=== PATIENT | male | born 1990 | race Caucasian/White ===

== ENCOUNTER 2017-05-01 13:38 | Emergency (ER) | payer BC ==
[2017-05-01] MEDS ORDERED: NORMAL SALINE 1000 ML 1,000 ML IV ONE (14:20)
--- NOTE | 2017-05-01 14:22 | ER Document Report ---
ED Medical Screen (RME) - General Chief Complaint: Low Back Pain Stated Complaint: BACK/STOMACH PAIN Time Seen by Provider: 05/01/17 14:19 Notes: Patient states he has a history of sarcoidosis, PE, and DVT. He states he has a [place] filter in place. He states he just finished blood thinners approximately 3 months ago. Patient states that he has noticed some left lower quadrant pain and central back pain for the last several days. He states he had only one day last week and went away but is now returned for the last several days. No nausea vomiting or diarrhea. States she is eating normally. TRAVEL OUTSIDE OF THE [place] IN LAST 30 DAYS: No - Related Data Allergies/Adverse Reactions: morphine Allergy (Verified 05/01/17 13:41) Past Medical History - Social History Chew tobacco use (# tins/day): No Frequency of alcohol use: Occasional Drug Abuse: None Renal/ Medical History: Denies: Hx Peritoneal Dialysis - Immunizations Hx Diphtheria, Pertussis, Tetanus Vaccination: No - Unknown last Tetanus. Physical Exam - Vital signs Vitals: Temp Pulse Resp BP Pulse Ox 99.5 F 101 H 16 146/103 H 99 05/01/17 13:46 05/01/17 13:46 05/01/17 13:46 05/01/17 13:46 05/01/17 13:46 Course - Vital Signs Vital signs: Temp Pulse Resp BP Pulse Ox 99.5 F 101 H 16 146/103 H 99 05/01/17 13:46 05/01/17 13:46 05/01/17 13:46 05/01/17 13:46 05/01/17 13:46
[2017-05-01 15:06] LABS: ABSOLUTE LYMPHOCYTES (AUTO) 0.5 10^3/uL (0.5-4.7); ABSOLUTE MONOCYTES (AUTO) 0.2 10^3/uL (0.1-1.4); ABSOLUTE NEUT (AUTO) 7.5 10^3/uL (1.7-8.2); BASOPHILS % (AUTO) 0.5 % (0-2); EOSINOPHILS % (AUTO) 0.5 % (0-6); HEMATOCRIT 48.2 % (37.9-51.0); HEMOGLOBIN 16.7 g/dL (13.5-17.0); HGB HCT DIFFERENCE 1.9; LYMPHOCYTES % (AUTO) 5.5 % (13-45); MEAN CORPUSCULAR HEMOGLOBIN 29.8 pg (27.0-33.4); MEAN CORPUSCULAR HGB CONC 34.6 g/dL (32.0-36.0); MEAN CORPUSCULAR VOLUME 86 fl (80-97); MONOCYTES % (AUTO) 2.4 % (3-13); RED BLOOD COUNT 5.59 10^6/uL (4.35-5.55); RED CELL DISTRIBUTION WIDTH 15.5 % (11.5-14.0); SEGMENTED NEUTROPHILS % (AUTO) 91.1 % (42-78); WHITE BLOOD COUNT 8.3 10^3/uL (4.0-10.5)
[2017-05-01 15:25] LABS: ALANINE AMINOTRANSFERASE 69 U/L (21-72); ALBUMIN 4.5 g/dL (3.5-5.0); ALKALINE PHOSPHATASE 61 U/L (38-126); ANION GAP 12 (5-19); ASPARTATE AMINO TRANSFERASE 29 U/L (17-59); BILIRUBIN,DIRECT 0.5 mg/dL (0.0-0.4); BILIRUBIN,TOTAL 0.7 mg/dL (0.2-1.3); BLOOD UREA NITROGEN 19 mg/dL (7-20); CALCIUM 9.4 mg/dL (8.4-10.2); CARBON DIOXIDE 22 mmol/L (22-30); CHLORIDE 107 mmol/L (98-107); GLUCOSE 92 mg/dL (75-110); POTASSIUM 4.8 mmol/L (3.6-5.0); SODIUM 140.6 mmol/L (137-145); TOTAL PROTEIN 7.2 g/dL (6.3-8.2)
--- NOTE | 2017-05-01 16:06 | ER Document Report ---
ED General - General Chief Complaint: Low Back Pain Stated Complaint: BACK/STOMACH PAIN Time Seen by Provider: 05/01/17 14:19 TRAVEL OUTSIDE OF THE [place] IN LAST 30 DAYS: No - HPI Notes: 26-year-old male with history of sarcoidosis, DVT and pulmonary emboli status post IVC filter placement with discontinuation of his Eliquis 3 months ago presents with abdominal pain back pain and numbness in his lower legs. Symptoms started about a week and a half ago where he noticed he was having left lower abdominal pain and lower central back discomfort that progressed and lasted for 3 or 4 days. With the progression he noticed that he would get diffuse numbness starting in his hips and as he would walk with progressively become more distal to involve his entire legs and feet. He has had no incontinence or other urinary or stool symptoms. Denies dysuria hematuria otherwise specifically. Pain is more aching. Symptoms completely resolved and then recurred approximately 3 or 4 days ago. He states he can walk probably 100 feet and then this will recur again. Is noted no edema to his scrotal region or legs. Denies chest pain or breathing difficulty. He has been started on methotrexate in the last few months as well. No nausea vomiting diarrhea, rash. - Related Data Allergies/Adverse Reactions: morphine Allergy (Verified 05/01/17 13:41) Past Medical History - Social History Smoking Status: Never Smoker Chew tobacco use (# tins/day): No Frequency of alcohol use: Occasional Drug Abuse: None Family History: Reviewed & Not Pertinent Patient has suicidal ideation: No Patient has homicidal ideation: No Renal/ Medical History: Denies: Hx Peritoneal Dialysis - Immunizations Hx Diphtheria, Pertussis, Tetanus Vaccination: No - Unknown last Tetanus. Review of Systems - Review of Systems -: Yes All other systems reviewed and negative Physical Exam - Vital signs Vitals: Temp Pulse Resp BP Pulse Ox 99.5 F 101 H 16 146/103 H 99 05/01/17 13:46 05/01/17 13:46 05/01/17 13:46 05/01/17 13:46 05/01/17 13:46 Interpretation: Hypertensive - Notes Notes: GENERAL: VS as per nursing doc. Well-appearing, well-nourished and in no acute distress. HEAD: Atraumatic, normocephalic. EYES: Pupils equal round and reactive to light, extraocular movements intact, sclera anicteric, no conjunctival injection or discharge. ENT: Nares patent, oropharynx clear without exudates, moist mucous membranes. NECK: Normal range of motion, supple without lymphadenopathy. LUNGS: Breath sounds clear to auscultation bilaterally and equal. No wheezes rales or rhonchi. HEART: Regular rate and rhythm without murmurs. ABDOMEN: Soft, non-tender, normoactive bowel sounds. No guarding, no rebound. No masses appreciated. No [place] sign. Specifically there is no left lower quadrant tenderness. BACK: No CVA tenderness. There is no midline lumbar tenderness and back is normal to inspection. No pain elicited with standing or compressive loading. EXTREMITIES: Normal range of motion, no calf tenderness, no edema. NEUROLOGICAL: Cranial nerves grossly intact. Normal speech. Normal sensory and motor exams with 5/5 strength and sensation. Deep tendon reflexes 2+ and equal. No gross cerebellar abnormalities. Gait is intact PSYCH: Normal mood, normal affect. SKIN: Warm, dry, normal turgor, no lesions noted. There are no color changes to the lower extremities and no edema. I ambulated the patient and he had no color change as well. Pulses were checked and remained good without any evidence of ischemia. Course - Re-evaluation Re-evalutation: 05/01/17 19:03 I visited patient multiple times reviewed labs and diagnostic studies as they returned. We were able to rule out a lot of underlying etiologies but I do not see clear etiology for these symptoms. He is on multiple medications which could cause him some issues such as methotrexate and prednisone daily. Speaking with him at discharge he is feeling better overall, comfortable. We discussed a broad differential diagnosis. As he does have the ambulatory paresthesias of the lower extremities particularly if he is going upstairs, I have asked him to talk to his physician tomorrow about further evaluation and treatment. MRI would be a consideration but does not seem to be deemed emergent. He has no evidence of ischemia after ambulation or at rest. He has no signs of cauda equina. He understands he should get follow-up in the next 48 hours either here or with his primary care physician. - Vital Signs Vital signs: Temp Pulse Resp BP Pulse Ox 99.5 F 101 H 16 146/103 H 99 05/01/17 13:46 05/01/17 13:46 05/01/17 13:46 05/01/17 13:46 05/01/17 13:46 - Laboratory Result Diagrams: 05/01/17 14:39 05/01/17 14:39 Laboratory results interpreted by me: 05/01/17 05/01/17 05/01/17 14:39 14:39 15:52 RBC 5.59 H RDW 15.5 H Plt Count 111 L Seg Neutrophils % 91.1 H Lymphocytes % 5.5 L Monocytes % 2.4 L Direct Bilirubin 0.5 H Urine Protein >=500 H Urine Blood SMALL H Discharge - Discharge Clinical Impression: Abdominal pain, Back pain, Paresthesia of bilateral legs Condition: Good Disposition: HOME, SELF-CARE Instructions: Abdominal Pain ([facility]) Additional Instructions: Please contact your primary care physician for follow-up tomorrow and further diagnostic plans and workup. As well return immediately if you are worsening or for other concern, development of fever, increasing lower extremity weakness or other change.
[2017-05-01 16:21] LABS: APPEARANCE,URINE SLIGHTLY-CLOUDY; BILIRUBIN,URINE NEGATIVE (NEGATIVE); GLUCOSE, URINE NEGATIVE (NEGATIVE); KETONES,URINE NEGATIVE (NEGATIVE); LEUKOCYTE ESTERASE,URINE NEGATIVE (NEGATIVE); NITRITE,URINE NEGATIVE (NEGATIVE); PROTEIN,URINE >=500 mg/dL (NEGATIVE); URINE SPECIFIC GRAVITY 1.026; UROBILINOGEN,URINE NEGATIVE mg/dL (<2.0)
--- NOTE | 2017-05-01 17:01 | RADIOLOGY REPORT (SQ) ---
EXAM DESCRIPTION: CT ABD/PELVIS NO ORAL OR IV COMPLETED DATE/TIME: 05/01/2017 4:19 pm REASON FOR STUDY: LLQ and Back pain COMPARISON: None. TECHNIQUE: CT scan of the abdomen and pelvis performed without intravenous or oral contrast. Images reviewed with lung, soft tissue, and bone windows. Reconstructed coronal and sagittal MPR images revi ewed. All images stored on PACS. All CT scanners at this facility use dose modulation, iterative reconstruction, and/or weight based d osing when appropriate to reduce radiation dose to as low as reasonably achievable (ALARA). [facility]: Dose Right [facility]: CareDose [facility]: Dose Right [facility]: Teradose 4D [facility]: Smart Ess[employer]ium RADIATION DOSE: CT Rad equipment meets quality standard of care and radiation dose reduction techniq ues were employed. CTDIvol: 18.5 mGy. DLP: 1046 mGy-cm.mGy. LIMITATIONS: None. FINDINGS: LOWER CHEST: No significant findings. No nodules or infiltrates. NON-CONTRASTED LIVER, SPLEEN, ADRENALS: Evaluation limited by lack of IV contrast. No identified sign ificant masses. PANCREAS: No masses. No peripancreatic inflammatory changes. GALLBLADDER: No identified stones by CT criteria. No inflammatory changes to suggest cholecystitis. RIGHT KIDNEY AND URETER: No suspicious masses. Assessment limited by lack of IV contrast. No signif icant calcifications. No hydronephrosis or hydroureter. LEFT KIDNEY AND URETER: No suspicious masses. Assessment limited by lack of IV contrast. No signifi cant calcifications. No hydronephrosis or hydroureter. AORTA AND RETROPERITONEUM: No aneurysm. No retroperitoneal masses or adenopathy. BOWEL AND PERITONEAL CAVITY: No obvious masses or inflammatory changes. No free fluid. APPENDIX: Normal. PELVIS, BLADDER, AND ABDOMINAL WALL:No abnormal masses. No free fluid. Bladder normal. BONES: No acute abnormality. There is no obvious disc pathology. There is no spinal stenosis. OTHER: An IVC filter is present. IMPRESSION: No acute abnormality is seen in the abdomen or pelvis. No findings to explain the patie nt's pain. COMMENT: Quality ID # [id number]: Final reports with documentation of one or more dose reduction techniques (e.g., Automated exposure control, adjustment of the mA and/or kV according to patient size, use of iterative reconstruction technique) TECHNICAL DOCUMENTATION: JOB ID: [id number]- All Rights Reserved
[2017-05-01 19:20] VITALS: BP 146/96
== END 2017-05-01 19:23 | disposition home or self-care (01) ==
LOC: ER 13:38
DX: R10.32 Left lower quadrant pain (principal); M54.5 Low back pain; R20.0 Anesthesia of skin; Z86.718 Personal history of other venous thrombosis and embolism; Z86.711 Personal history of pulmonary embolism
CPT/HCPCS: 99284; 96360; 36415; 85025; 80053; 81001; 74176; J7030

== ENCOUNTER 2017-05-02 10:19 | Emergency (ER) | payer BC ==
[2017-05-02] MEDS ORDERED: HYDROCODONE/ACETAMINOPHEN 5-325 MG TABLET PO ONE (11:47)
--- NOTE | 2017-05-02 11:52 | ER Document Report ---
ED General - General Chief Complaint: Back Pain Stated Complaint: LOWER BACK PAIN Time Seen by Provider: 05/02/17 10:43 Mode of Arrival: Ambulatory Information source: Patient Notes: Patient is a 26 year old male with history of sarcoidosis, PE/DVT with [place] filter in place. He did stop his Eliquis 3 months ago. Patient presents with 1 week history of midline low back pain with associated bilateral paresthesias to legs. He states that last week it occurred once on Saturday but self-resolved. It started this saturday and has not resolved. Paresthesias resolve with rest but return after he takes approximately 20 steps or immediately if using the stairs. He is taking methotrexate and prednisone 20 mg daily for sarcoidosis. He was seen here at [facility] yesterday and had full work up including CT scans and blood work. The blood work was unremarkable and CT scan showed clear IVC filter. The doctor he saw yesterday recommended he talk with his pulmonlogist concerning his methotrexate as causative agent of his symptoms and his sap senior developer told him no. He states the doctor yesterday stated he would need an MRI so he is here for pain medication and MRI. He denies any fever , chills, nausea, vomiting, chest pain, SOB, n/v/d, unilateral weakness, saddle paresthesias, bowel or bladder incontinence. TRAVEL OUTSIDE OF THE [place] IN LAST 30 DAYS: No - Related Data Allergies/Adverse Reactions: morphine Allergy (Verified 05/02/17 10:20) Past Medical History - General Information source: Patient - Social History Smoking Status: Never Smoker Chew tobacco use (# tins/day): No Frequency of alcohol use: None Drug Abuse: None Family History: Reviewed & Not Pertinent Patient has suicidal ideation: No Patient has homicidal ideation: No Renal/ Medical History: Denies: Hx Peritoneal Dialysis - Immunizations Hx Diphtheria, Pertussis, Tetanus Vaccination: No - Unknown last Tetanus. Review of Systems - Review of Systems Constitutional: See HPI EENT: No symptoms reported Cardiovascular: No symptoms reported Respiratory: No symptoms reported Gastrointestinal: See HPI Genitourinary: No symptoms reported Male Genitourinary: See HPI Musculoskeletal: See HPI Skin: No symptoms reported Hematologic/Lymphatic: No symptoms reported Neurological/Psychological: See HPI Physical Exam - Vital signs Vitals: Temp Pulse Resp BP Pulse Ox 97.9 F 101 H 18 139/85 H 98 05/02/17 10:40 05/02/17 10:40 05/02/17 10:40 05/02/17 10:40 05/02/17 10:40 - Notes Notes: PHYSICAL EXAM: CONSTITUTIONAL: Alert and oriented, well-appearing and in no acute distress. Speaking in full sentences without difficulty. Ambulatory in ED. HENT: Normocephalic, atraumatic. Trachea midline. Uvula midline. Moist mucous membranes. EYES: Pupils equal round and reactive to light, EOM intact. Sclera anicteric, conjunctiva are normal. No entrapment. NECK: supple without lymphadenopathy. No midline tenderness or paraspinous muscle spasms. No step-offs or deformities. ROM intact. No nuchal rigidity, negative Kernig's and Brudzinskis. HEART: Regular rate and rhythm without murmurs. LUNGS: CTAB and equal. No wheezes, rales or rhonchi. GI: Normactive bowel sounds. Nontender, non-distended. No organomegaly. no CVAT. BACK: no midline tenderness, no paraspinous spasm, 5+/5 strengths, DTRs 2+, SLR -. DTRs intact. EXTREMITIES: Normal range of motion, no pitting edema. No cyanosis. Cap Refill < 3 seconds. NEURO: Cranial nerves grossly intact. Normal sensory/motor exams. PSYCH: Normal mood, normal affect. SKIN: Warm and dry. Normal turgor. No rashes or lesions noted. Course - Re-evaluation Re-evalutation: 05/02/17 11:32 Patient seen and examined. Reviewed lab work and imaging studies from yesterday which were negative. I have consulted with the supervisory physician per [facility] guidelines. No red flag symptoms at this point, low suspicion for cauda equine syndrome or epidural abscess at this point. Spoke with MRI, they do not have any openings today. Advised patient he would need his primary care doctor to for outpatient order for MRI. Will great with dose pack of steroids and give pain medication. At this time, will discharge with return precautions and follow-up recommendations. Verbal discharge instructions given at the bedside and opportunity for questions given. Medication warnings reviewed. Patient is in agreement with this plan and has verbalized understanding of return precautions and the need for primary care follow-up in the next 24-72 hours. - Vital Signs Vital signs: Temp Pulse Resp BP Pulse Ox 97 F L 94 18 149/96 H 97 05/02/17 13:04 05/02/17 13:04 05/02/17 13:04 05/02/17 13:04 05/02/17 13:04 Discharge - Discharge Clinical Impression: Lumbar back pain, Paresthesia of bilateral legs Condition: Stable Disposition: HOME, SELF-CARE Instructions: Warm Packs ([facility]) Additional Instructions: LOW BACK PAIN: Three out of every four people will have an episode of disabling back pain during their lifetime. Most commonly the pain is due to straining of the muscles and ligaments in the low back. Usual treatment includes: (1) Rest on a firm surface. Avoid lying on your stomach. (2) Ice pack the painful area. After a few days, gentle heat may be used intermittently to relax the area, or ice packs can be continued. (3) Medication may be needed -- muscle relaxers and antiinflammatory medicines are commonly used. (4) As the back improves, exercises are prescribed to strengthen the back and abdominal muscles. Your doctor will advise you on the proper care for your back at each stage in your recovery. You may be better in a few days -- or healing may take several weeks. If new symptoms of a "herniated disc" (radiation of pain, numbness, or tingling down the back of the leg or weakness in the leg) occur, you should be re-examined. Further testing may be necessary. ORAL NARCOTIC MEDICATION: You have been given a prescription for pain control. This medication is a narcotic. It's best taken with food, as nausea can result if taken on an empty stomach. Don't operate machinery or drive within six hours of taking this medication. Do not combine this medicine with alcohol, or with any medication which can cause sedation (such as cold tablets or sleeping pills) unless you get permission from the physician. Narcotics tend to cause constipation. If possible, drink plenty of fluids and eat a diet high in fiber and fruits. Please be aware that prescription narcotics also have the potential for abuse. People become addicted to these medications because of the general sense of wellbeing that they induce. This feeling along with a significant reduction in tension, anxiety, and aggression provides a stimulating seductive quality to these drugs. Once your pain is under control, we encourage you to discard your unused narcotics. MUSCLE RELAXERS: Muscle relaxing medications are usually prescribed for acute muscle spasm or injury to the neck and back. They are often combined with antiinflammatory pain medication for increased relief. You may stop the muscle relaxer when the pain and stiffness have improved. Start the medication again if spasms recur. Muscle relaxers may cause drowsiness, especially with the first dose. Do not operate machinery or drive while under the effects of the medication. Most muscle relaxers last up to 24 hours. Do not combine the medication with alcohol. STEROID MEDICATION: You have been given a medicine of the cortisone/steroid class. This medication is used to control inflammation or allergy. It is usually only given for a short period of time, until the acute process subsides. There are usually no side effects from short-term use of cortisone-like medications. Some persons feel an increased sense of well-being and are not sleepy at bedtime. Long-term use of cortisone medications is best avoided, unless required for a severe condition. If your condition does not remit, or relapses after the course of corticosteroid medication, you should consult your physician. ICE PACKS: Apply ice packs frequently against the painful area. Many different schedules are recommended, such as "20 minutes on, 20 minutes off" or "one hour ice, two hours rest." If you need to work, you may need to go longer between ice treatments. You should plan to have the area ice packed AT LEAST one fourth of the time. The ice should be applied over the wrap, tape, or splint, or over a layer of cloth -- not directly against the skin. Some ice bags have a built-in cloth and can be put directly on the skin. WARM PACKS: After approximately two days, apply gentle heat (such as a heating pad or hot water bottle) for about 20 to 30 minutes about every two hours -- at least four times daily. Warmth and elevation will help you make a more rapid recovery , and will ease the pain considerably. Do not use HOT heat, and never apply heat for longer than 30 minutes. The continuous heat can invisibly damage skin and muscles -- even when no burn is seen on the surface. Damaged muscles can make you MORE sore. FOLLOW-UP CARE: If you have been referred to a physician for follow-up care, call the physician s office for an appointment as you were instructed or within the next two days. If you experience worsening or a significant change in your symptoms, notify the physician immediately or return to the Emergency Department at any time for re-evaluation. Prescriptions: Oxycodone HCl/Acetaminophen [Percocet 5-325 mg Tablet] 1 tab PO Q6HP PRN #10 tablet PRN Reason: Methocarbamol [Robaxin 500 mg Tablet] 500 mg PO TID #20 tablet Prednisone [Deltasone 10 mg Tablet] 10 mg PO ASDIR PRN #21 tablet PRN Reason: Forms: Elevated Blood Pressure
[2017-05-02 13:04] VITALS: BP 149/96
== END 2017-05-02 13:05 | disposition home or self-care (01) ==
LOC: ER 10:19
DX: M54.5 Low back pain (principal); R20.2 Paresthesia of skin; D86.9 Sarcoidosis, unspecified; Z79.899 Other long term (current) drug therapy; Z88.5 Allergy status to narcotic agent; Z86.718 Personal history of other venous thrombosis and embolism; Z86.711 Personal history of pulmonary embolism; Z95.5 Presence of coronary angioplasty implant and graft
CPT/HCPCS: 99283

== ENCOUNTER 2017-05-03 11:38 | Observation (INO) | payer BC ==
[2017-05-03] MEDS ORDERED: DEXAMETHASONE SOD PHOS INJ 10 MG/1 ML VIAL IM ONE (12:24)
--- NOTE | 2017-05-03 12:25 | ER Document Report ---
HPI - HPI Pain Level: 5 Notes: Patient is a 26-year-old male with a history of sarcoidosis, PE/DVT with [place] filter in place (discontinued Eliquis 3 months ago) Who presents to the ED complaining of mid lower back pain 1 week with numbness to his bilateral lower extremities intermittently. Patient states that his symptoms would improve with rest and worsened with activity, but lately not even rest or comfortable body positions make the pain improve. Patient states that he was seen here 2 days ago and had a CT scan performed and blood work which was unremarkable. Patient states that he was here yesterday to try to get an MRI, but they were unable to do so at that time as there was no appointments open. Patient was sent home on pain medication, steroid taper, and muscle relaxers which have not been helping at all. Patient states that he did not take any steroids this morning. He is otherwise eating and drinking without any difficulties. He denies any smoking or IV drug use. He denies any history of diabetes. Patient has no known back injury. He denies any injections or surgeries to his lower back. Patient does take methotrexate and prednisone for his sarcoid. Denies any recent illness. Denies any headache, fever, neck pain , URI, sore throat, chest pain, palpitations, syncope, cough, shortness of breath, wheeze, dyspnea, abdominal pain, nausea/vomiting/diarrhea, urinary retention, dysuria, hematuria, loss of control of bowel or bladder, saddle anesthesia, muscle paralysis/weakness, or rash. - ROS Notes: REVIEW OF SYSTEMS: CONSTITUTIONAL : Denies fever, chills, or sweats. Denies recent illness. EENT: Denies eye, ear, throat, or mouth pain or symptoms. Denies nasal or sinus congestion or discharge. Denies throat, tongue, or mouth swelling or difficulty swallowing. CARDIOVASCULAR: Denies chest pain. Denies palpitations or racing or irregular heart beat. Denies ankle edema. RESPIRATORY: Denies cough, cold, or chest congestion. Denies shortness of breath, difficulty breathing, or wheezing. GASTROINTESTINAL: Denies abdominal pain or distention. Denies nausea, vomiting , or diarrhea. Denies blood in vomitus, stools, or per rectum. Denies black, tarry stools. Denies constipation. GENITOURINARY: Denies difficulty urinating, painful urination, burning, frequency, blood in urine, or discharge. MUSCULOSKELETAL: see hpi SKIN: Denies rash, lesions or sores. NEUROLOGICAL: Denies confusion or altered mental status. Denies passing out or loss of consciousness. Denies dizziness or lightheadedness. Denies headache. Denies weakness or paralysis or loss of use of either side. Denies problems with gait or speech. Denies sensory loss, numbness, or tingling. Denies seizures. ALL OTHER SYSTEMS REVIEWED AND NEGATIVE. Dictation was performed using [employer] voice recognition software Past Medical History - Social History Smoking Status: Never Smoker Family History: Reviewed & Not Pertinent Renal/ Medical History: Denies: Hx Peritoneal Dialysis - Immunizations Hx Diphtheria, Pertussis, Tetanus Vaccination: No - Unknown last Tetanus. Vertical Provider Document - CONSTITUTIONAL Agree With Documented VS: Yes Notes: PHYSICAL EXAMINATION: GENERAL: Well-appearing, well-nourished and in no acute distress. A&Ox4. In WC and appears uncomfortable NECK: Normal range of motion, supple without lymphadenopathy. No rigidity. No midline tenderness. Spurling negative. LUNGS: Breath sounds clear to auscultation bilaterally and equal. No wheezes rales or rhonchi. HEART: Regular rate and rhythm without murmurs, rubs, gallops. ABDOMEN: Soft, nontender, nondistended abdomen. No guarding, no rebound. No masses appreciated. Normal bowel sounds present. No CVA tenderness bilaterally. No pulsatile mass. Musculoskeletal: Ext b/l: FROM to passive/active. Strength 5+/5. No deficits noted. No bony tenderness of extremities. Back: LROM to passive/active to flexion. Strength 5+/5. No stepoffs, or deformities. + mild tenderness to the midline near L4 with mild rt paraspinal mm tenderness. No other bony tenderness, erythema, or ecchymosis. SLR negative b/l. Extremities: 1+ pitting edema to the left, Trace to 1+ on the right. Peripheral pulses 2+. Capillary refill less than 2 seconds. NEUROLOGICAL: MMSE intact. Cranial nerves grossly intact. Normal speech, ataxic gait. Normal sensory, motor exams. Reflexes 2+ b/l. PSYCH: Normal mood, normal affect. SKIN: Warm, Dry, normal turgor, no rashes or lesions noted. - INFECTION CONTROL TRAVEL OUTSIDE OF THE [place] IN LAST 30 DAYS: No - RESPIRATORY O2 Sat by Pulse Oximetry: 99 Course - Re-evaluation Re-evalutation: 05/03/17 12:[address] Vidal and Radiologist: Recommend MRI w/o and if radiologist sees something concerning she will change the order to w. and w/o. Pt in agreement. Pt also given decadron and toradol. 05/03/17 15:[address] Christie (radiologist): concern for clot in the left iliac. She recommends b/l LE doppler, possible CTA thereafter. I will add some labs as well in the meantime, CBC, CMP, Coags, and UA. 05/03/17 17:38 See MRI and doppler results: shows clot to the left common iliac and inferior vena cava. Doppler findings consistent with clot. Reviewed with Hospitalist and Dr. Vidal. Hospitalist, Dr. Jeffers, recommends consult with Hem/Onc Dr. Bello. Reviewed with Dr. Bello who recommended that since (based on my report) his vitals are stable and he is clinically stable (no deterioration during stay or new PE findings), that patient can be safely discharged home on Eliquis starting tonight. She would like him to follow-up in their office within 2 weeks. I did review this with the patient and family who are in agreement with discharge and plan. We also called his pharmacy to confirm that they have eliquis and they are open until 2200 tonight so that pt can get the medication and begin. Labs are otherwise unremarkable at this time. Pt's edema is consistent with initial findings and are not worsening to the LE's b/l. Risks and benefits are understood of discharge and starting Eliquis with close follow-up. According to up-to-date, the starting dose for DVT treatment of Eliquis is 10 mg twice daily for 1 week followed by 5 mg twice daily thereafter. Strict return precautions were reviewed. Patient is to have a follow-up with his PCM in 3-5 days as well as schedule an appointment with hematology in the next 1-1-1/2 weeks. Patient is to return to the ED with any worsening/concerning symptoms otherwise as reviewed in discharge. Patient and parents are in agreement. - Vital Signs Vital signs: Temp Pulse Resp BP Pulse Ox 98.6 F 94 16 156/101 H 99 05/03/17 11:43 05/03/17 11:43 05/03/17 11:43 05/03/17 11:43 05/03/17 11:43 - Laboratory Result Diagrams: 05/03/17 16:06 05/03/17 15:20 Discharge - Discharge Clinical Impression: DVT (deep venous thrombosis) Qualifiers: DVT location: lower extremity Affected thrombotic vein of extremity: iliac Chronicity: acute Laterality: left Qualified Code(s): I82.422 - Acute embolism and thrombosis of left iliac vein Condition: Stable Disposition: HOME, SELF-CARE Instructions: DVT Outpatient Treatment ([facility]) Additional Instructions: Rest, Compression, Elevation Tylenol/ibuprofen as needed Light stretches daily Strength exercises as able Begin Eliquis as directed tonight. Then 10mg twice daily for 1 week followed by 5mg twice daily thereafter. F/u with your PCP in 3-5 days for a recheck Schedule a f/u with Hematology for a visit in the next 1-2 weeks* Return to the ED with any worsening symptoms and/or development of fever, headache, chest pain, palpitations, syncope, shortness of breath, trouble breathing, abdominal pain, n/v/d, blood in stool/urine, loss of control of bowel /bladder, urinary retention, muscle weakness/paralysis, saddle anesthesia, numbness/tingling, or other worsening symptoms that are concerning to you. Prescriptions: Apixaban [Eliquis] 5 - 10 mg PO Q12 #50 tablet Forms: Elevated Blood Pressure Referrals: AZEEM BELLO MD [ACTIVE STAFF] - Follow up in 1 week
[2017-05-03] MEDS ORDERED: FENTANYL CITRATE INJ/PF 100 MCG/2 ML AMPUL IV ONE (15:21)
--- NOTE | 2017-05-03 15:28 | RADIOLOGY REPORT (SQ) ---
EXAM DESCRIPTION: MRI LUMBAR SPINE WITHOUT COMPLETED DATE/TIME: 05/03/2017 2:41 pm REASON FOR STUDY: Low back pain COMPARISON: CT abdomen pelvis 05/01/2017 TECHNIQUE: Sagittal and Axial imaging includes T1, T2, STIR and gradient echo sequences. Coronal T2/ HASTE imaging. LIMITATIONS: None. FINDINGS: There is edema in the retroperitoneal soft tissues from about the L3 level through the joy ac bifurcation. The left common iliac vein is larger than the right, with mixed signal filling defec t on the axial T2 images worrisome for intraluminal clot. On the sagittal STIR and T2 images, there is mixed signal material filling the inferior vena cava to the level of the L1 vertebral body, best s hown on sagittal images 3-5, worrisome for inferior vena cava thrombosis. Review of prior CT exam 05/01/2017 shows asymmetric enlargement of the left common iliac vein and a v juan subtle hypodense filling defect in the left external iliac vein which likely represents thrombus at that time. This was difficult to perceive due to lack of IV contrast. Patient has an inferior ve na cava filter. These findings were discussed with Dev Bentno in the emergency room. VISUALIZED UPPER ABDOMEN: 2 cm cyst right mid-pole kidney. SEGMENTATION: No transitional anatomy. The lowest well-developed disc space is labeled L5-S1. ALIGNMENT: Anatomic. VERTEBRAE: Intact. BONE MARROW: Normal. No marrow replacement or reactive changes. DISC SIGNAL: Normal. No significant abnormal signal or loss of height. POSTERIOR ELEMENTS: Generally intact. No pars defect evident. HARDWARE: None in the spine. CORD AND CONUS: Normal in size and signal intensity. Conus at the L1-2 level. No distal thoracic cor d or conus edema. SOFT TISSUES: No aortic aneurysm seen. No bulky retroperitoneal adenopathy or mass. No paraspinal mas s or fluid. L1-L2: No significant spinal stenosis or exit foraminal stenosis. L2-L3: No significant spinal stenosis or exit foraminal stenosis. L3-L4: No significant spinal stenosis or exit foraminal stenosis. L4-L5: No significant spinal stenosis or exit foraminal stenosis. L5-S1: No significant spinal stenosis or exit foraminal stenosis. LOWER THORACIC: Incompletely imaged. No stenosis seen. SACRUM: Visualized upper sacrum intact. OTHER: No other significant findings. 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 Findings discussed with Dev Benton in the emergency room No distal thoracic cord or conus edema or extrinsic compression No lumbar disc protrusion/herniation or significant central or foraminal encroachment TECHNICAL DOCUMENTATION: JOB ID: [id number] [employer]- All Rights Reserved
[2017-05-03 15:54] LABS: ALANINE AMINOTRANSFERASE 55 U/L (21-72); ALBUMIN 4.4 g/dL (3.5-5.0); ALKALINE PHOSPHATASE 60 U/L (38-126); ANION GAP 13 (5-19); ASPARTATE AMINO TRANSFERASE 26 U/L (17-59); BILIRUBIN,DIRECT 0.3 mg/dL (0.0-0.4); BILIRUBIN,TOTAL 0.6 mg/dL (0.2-1.3); BLOOD UREA NITROGEN 18 mg/dL (7-20); CALCIUM 9.6 mg/dL (8.4-10.2); CARBON DIOXIDE 22 mmol/L (22-30); CHLORIDE 106 mmol/L (98-107); GLUCOSE 97 mg/dL (75-110); POTASSIUM 4.5 mmol/L (3.6-5.0); SODIUM 141.3 mmol/L (137-145)
[2017-05-03 16:19] LABS: HEMATOCRIT 44.6 % (37.9-51.0); HEMOGLOBIN 15.4 g/dL (13.5-17.0); HGB HCT DIFFERENCE 1.6; MEAN CORPUSCULAR HEMOGLOBIN 29.8 pg (27.0-33.4); MEAN CORPUSCULAR HGB CONC 34.5 g/dL (32.0-36.0); MEAN CORPUSCULAR VOLUME 87 fl (80-97); RED BLOOD COUNT 5.16 10^6/uL (4.35-5.55); RED CELL DISTRIBUTION WIDTH 15.7 % (11.5-14.0); WHITE BLOOD COUNT 10.1 10^3/uL (4.0-10.5)
--- NOTE | 2017-05-03 16:25 | RADIOLOGY REPORT (SQ) ---
EXAM DESCRIPTION: VENOUS BILATERAL LOWER COMPLETED DATE/TIME: 05/03/2017 4:12 pm REASON FOR STUDY: ? clot on MRI, left iliac COMPARISON: None. TECHNIQUE: Dynamic and static perez scale and color images acquired of both lower extremity venous sy stems. Selected spectral images acquired with additional compression and augmentation maneuvers. Imag es stored on PACS. LIMITATIONS: Because of large body habitus, we were unable to visualize the inferior vena cava and i liac veins FINDINGS: RIGHT LEG COMMON FEMORAL AND FEMORAL: Non phasic flow. Normal compression and augmentation. No visualized echo genic material on perez scale. No defects on color images. POPLITEAL: Normal compression and augmentation. No visualized echogenic material on perez scale. No de fects on color images. CALF VESSELS: Normal compression and augmentation. No visualized echogenic material on perez scale. No defects on color image. GSV AND SSV: Normal compression. No visualized echogenic material on perez scale. No defects on color images. ANY DEEP VENOUS INSUFFICIENCY: Not evaluated. ANY EVIDENCE OF POPLITEAL CYST: No. OTHER: No other significant finding. LEFT LEG COMMON FEMORAL AND FEMORAL: Non phasic flow. Normal Compression. No augmentation with calf squeeze. No visualized echogenic material on perez scale. No defects on color images. POPLITEAL: Normal compression and augmentation. No visualized echogenic material on perez scale. No de fects on color images. CALF VESSELS: Normal compression and augmentation. No visualized echogenic material on perez scale. No defects on color images. GSV AND SSV: Normal compression. No visualized echogenic material on perez scale. No defects on color images. ANY DEEP VENOUS INSUFFICIENCY: Not evaluated. ANY EVIDENCE POPLITEAL CYST: No. OTHER: No other significant finding. IMPRESSION: Unable to assess the inferior vena cava and iliac veins with ultrasound patient large mandi dy habitus and bowel gas There is non phasic flow in the right and left common femoral veins. Unable augment flow on the left with calf squeeze. This is indirect evidence to support caval thrombosis as suggested by lumbar MRI performed earlier today TECHNICAL DOCUMENTATION: JOB ID: [id number]- All Rights Reserved
[2017-05-03 16:49] LABS: BASOPHILS % (MANUAL) 0 % (0-2); EOSINOPHILS % (MANUAL) 0 % (0-6); LYMPHOCYTES % (MANUAL) 6 % (13-45); TOTAL CELLS COUNTED 100
[2017-05-03 16:50] LABS: ANISOCYTOSIS SLIGHT; TOXIC GRANULATION SLIGHT
[2017-05-03 17:12] LABS: PROTHROMBIN TIME 12.4 SEC (11.4-15.4)
[2017-05-03 17:13] LABS: PARTIAL THROMBOPLASTIN TIME 32.7 SEC (23.5-35.8)
[2017-05-03 17:30] LABS: APPEARANCE,URINE CLOUDY; BILIRUBIN,URINE NEGATIVE (NEGATIVE); GLUCOSE, URINE NEGATIVE (NEGATIVE); KETONES,URINE NEGATIVE (NEGATIVE); LEUKOCYTE ESTERASE,URINE NEGATIVE (NEGATIVE); NITRITE,URINE NEGATIVE (NEGATIVE); PROTEIN,URINE >=500 mg/dL (NEGATIVE); URINE SPECIFIC GRAVITY 1.032
[2017-05-03] MEDS ORDERED: ACETAMINOPHEN 325 MG TABLET PO PRN (18:27)
--- NOTE | 2017-05-03 19:16 | PDOC H&P ---
History of Present Illness History of Present Illness: CHI BARONE is a 26 year old white male with a past medical history significant of multiple DVTs and PEs that were initially diagnosed in December of this year. In addition to the diagnosis of multiple PEs and DVTs, the patient was also diagnosed with sarcoidosis by biopsy. The patient developed clots and has been worked up by his seconds inspector in [place], Dr. Paredes. The patient states that his belief was that he developed multiple clots because he travels a great deal. 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 The patient is also been diagnosed with sarcoidosis and had an IVC filter placed prior to biopsy for diagnosis of his sarcoidosis. He has been on chronic prednisone methotrexate, and folic acid. The patient had been on Eliquis for 3 months. He states that his seconds inspector and his building rigger , Dr. Aura Belcher in [place], decided to take him off of his Eliquis because he was doing well. Unfortunately on Saturday the patient developed back pain and leg pain and began to have progressive difficulty walking. He came into the ER Saturday but was ultimately sent back out to follow-up with his physicians. The patient continued to have pain and came back yesterday and again was sent home. He returns to the emergency room today with the same complaints and increased difficulty walking. The patient underwent MRI as well as ultrasound of the lower extremities which revealed a left common iliac clot and IVC clot. I did ask the physician visitor information assistant in the emergency room to contact Dr. Bello with hematology. As I felt the patient could likely be started on anticoagulation and sent home. She was in agreement with this and gave orders to the physician visitor information assistant as to how to treat the patient and how to follow-up with her in her office. However, the patient really felt nervous about going home and is still having back pain. Therefore he is admitted to our service. Past Medical History Pulmonary History Note: Sarcoidosis Past Surgical History Past Surgical History: Reports: Other - IVC filter placement Social History Smoking Status: Never Smoker - Advance Directive Resuscitation Status: Full Code Family History Family History: CAD, Malignancy Parental Family History Reviewed: Yes Children Family History Reviewed: NA Sibling(s) Family History Reviewed.: Yes Medication/Allergy Home Medications: Apixaban [Eliquis] 5 - 10 mg PO Q12 #50 tablet 05/03/17 Folic Acid [Folic Acid] 1 tab PO ASDIR PRN 05/03/17 Methotrexate Sodium [Rheumatrex 2.5 mg Tablet] 4 tab PO ASDIR PRN 05/03/17 Prednisone [Deltasone 10 mg Tablet] 20 mg PO DAILY 05/03/17 Trazodone HCl [Trazodone HCl] 100 mg PO QPM 05/03/17 Allergies/Adverse Reactions: morphine Allergy (Verified 05/03/17 11:39) Review of Systems Review of Systems: Pertinent review of systems as per HPI in addition to this the patient has felt lightheaded and has had some minor weight gain from prednisone use. He denies fevers, chills, nausea, vomiting, diarrhea, constipation, blood in stool, blood in the urine, coughing up blood, throwing up blood. The patient does say when he was on Eliquis however he would occasionally cough up blood. He denies any chest pain or shortness of breath. Physical Exam Vital Signs: Temp Pulse Resp BP Pulse Ox 99.9 F 87 20 151/96 H 99 05/03/17 17:13 05/03/17 17:13 05/03/17 17:13 05/03/17 17:13 05/03/17 17:52 Intake & Output 05/02/17 05/03/17 05/04/17 06:59 06:59 06:59 Weight 128.1 kg GENERAL: This is a well-developed and nourished appearing morbidly obese white male resting in bed currently in no acute distress. HEENT: Normocephalic, atraumatic. Trachea is midline. Sclera are anicteric. Moist mucous membranes. Mallampati 3. Dentition is good. HEART: Regular rate and rhythm. No murmurs, rubs or gallops. LUNGS: Clear to auscultation bilaterally with equal rise and fall of the chest. ABDOMEN: Soft, nontender, nondistended with normoactive bowel sounds EXTREMETIES: No clubbing, cyanosis or edema. 2+ peripheral pulses bilaterally. Strength 5 out of 5 in both the upper and lower extremities bilaterally. Back: Minor tenderness to palpation of the lumbar spine and paraspinal muscles. NEURO: Awake, alert and oriented 3. Cranial nerves II through XII are specifically intact. Results Laboratory Results: 05/03/17 16:06 05/03/17 15:20 05/03/17 05/03/17 05/03/17 15:20 15:20 16:06 WBC Cancelled 10.1 RBC Cancelled 5.16 Hgb Cancelled 15.4 Hct Cancelled 44.6 MCV Cancelled 87 MCH Cancelled 29.8 MCHC Cancelled 34.5 RDW Cancelled 15.7 H Plt Count Cancelled 144 L Seg Neutrophils % Cancelled Not Reportable Lymphocytes % Cancelled Not Reportable Monocytes % Cancelled Not Reportable Eosinophils % Cancelled Not Reportable Basophils % Cancelled Not Reportable Absolute Neutrophils Cancelled Not Reportable Absolute Lymphocytes Cancelled Not Reportable Absolute Monocytes Cancelled Not Reportable Absolute Eosinophils Cancelled Not Reportable Absolute Basophils Cancelled Not Reportable Sodium 141.3 Potassium 4.5 Chloride 106 Carbon Dioxide 22 Anion Gap 13 BUN 18 Creatinine 1.20 Est GFR ( Amer) > 60 Est GFR (Non-Af Amer) > 60 Glucose 97 Calcium 9.6 Total Bilirubin 0.6 AST 26 ALT 55 Alkaline Phosphatase 60 Total Protein 7.0 Albumin 4.4 Urine Color Urine Appearance Urine pH Ur Specific [place] Urine Protein Urine Glucose (UA) Urine Ketones Urine Blood Urine Nitrite Ur Leukocyte Esterase Urine WBC (Auto) Urine RBC (Auto) 05/03/17 16:35 WBC RBC Hgb Hct MCV MCH MCHC RDW Plt Count Seg Neutrophils % Lymphocytes % Monocytes % Eosinophils % Basophils % Absolute Neutrophils Absolute Lymphocytes Absolute Monocytes Absolute Eosinophils Absolute Basophils Sodium Potassium Chloride Carbon Dioxide Anion Gap BUN Creatinine Est GFR ( Amer) Est GFR (Non-Af Amer) Glucose Calcium Total Bilirubin AST ALT Alkaline Phosphatase Total Protein Albumin Urine Color YELLOW Urine Appearance CLOUDY Urine pH 5.0 Ur Specific [place] 1.032 Urine Protein >=500 H Urine Glucose (UA) NEGATIVE Urine Ketones NEGATIVE Urine Blood NEGATIVE Urine Nitrite NEGATIVE Ur Leukocyte Esterase NEGATIVE Urine WBC (Auto) 5 Urine RBC (Auto) 2 Impressions: Lumbar Spine MRI 05/03/17 12:23 IMPRESSION: Inferior vena cava thrombosis, clot in the left common iliac vein in the field of view. Findings discussed with Dev Benton in the emergency room No distal thoracic cord or conus edema or extrinsic compression No lumbar disc protrusion/herniation or significant central or foraminal encroachment Venous Doppler Study 05/03/17 15:02 IMPRESSION: Unable to assess the inferior vena cava and iliac veins with ultrasound patient large body habitus and bowel gas There is non phasic flow in the right and left common femoral veins. Unable augment flow on the left with calf squeeze. This is indirect evidence to support caval thrombosis as suggested by lumbar MRI performed earlier today Assessment & Plan - Diagnosis (1) Sarcoidosis Plan: Continue folic acid and prednisone. Hold methotrexate (2) DVT (deep venous thrombosis) Qualifiers: DVT location: lower extremity Affected thrombotic vein of extremity: iliac Chronicity: acute Laterality: left Qualified Code(s): I82.422 - Acute embolism and thrombosis of left iliac vein Plan: We will check hypercoagulability panel. Patient has been off of Eliquis now for the last 3 weeks and this would be an optimal time to check the studies that he could have done before. I question if there is some hereditary cause for his multiple clots. 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 After his blood is been collected for the hypercoagulability panel we will begin Eliquis 10 mg twice a day for the next 7 days and then decrease from there. (3) Lumbar back pain Plan: MRI does not support any gross abnormalities of the lumbar spine. Lumbago is likely musculoskeletal. - Time Time Spent: 50 to 70 Minutes - Inpatient Certification Based on my medical assessment, after consideration of the patient's comorbidities, presenting symptoms, or acuity I expect that the services needed warrant INPATIENT care.: Yes Medical Necessity: Need Close Monitoring Due to Risk of Patient Decompensation
[2017-05-03] MEDS ORDERED: APIXABAN 5 MG TABLET PO ONE (20:00)
[2017-05-03] MEDS ORDERED: INFLUENZA ADLT QUAD (36MOS+) 2017-18 VAC 0.5 ML SYR IM PRN (20:51)
[2017-05-03 21:48] LABS: PROTHROMBIN TIME 12.7 SEC (11.4-15.4)
[2017-05-03 21:49] LABS: FIBRINOGEN 408 mg/dL (209-497); PARTIAL THROMBOPLASTIN TIME 31.8 SEC (23.5-35.8)
[2017-05-03] MEDS ORDERED: TRAZODONE HCL 50 MG TABLET PO SCH (22:00)
[2017-05-04] MEDS ORDERED: APIXABAN 5 MG TABLET PO ONE (01:00)
[2017-05-04 04:59] LABS: ABSOLUTE BASOPHILS # (AUTO) 0.1 10^3/uL (0.0-0.2); ABSOLUTE MONOCYTES (AUTO) 0.5 10^3/uL (0.1-1.4); ABSOLUTE NEUT (AUTO) 9.3 10^3/uL (1.7-8.2); BASOPHILS % (AUTO) 0.5 % (0-2); EOSINOPHILS % (AUTO) 0.1 % (0-6); HEMATOCRIT 41.4 % (37.9-51.0); HEMOGLOBIN 14.2 g/dL (13.5-17.0); HGB HCT DIFFERENCE 1.2; LYMPHOCYTES % (AUTO) 9.1 % (13-45); MEAN CORPUSCULAR HGB CONC 34.2 g/dL (32.0-36.0); MEAN CORPUSCULAR VOLUME 88 fl (80-97); MONOCYTES % (AUTO) 4.5 % (3-13); RED BLOOD COUNT 4.72 10^6/uL (4.35-5.55); RED CELL DISTRIBUTION WIDTH 15.3 % (11.5-14.0); SEGMENTED NEUTROPHILS % (AUTO) 85.8 % (42-78); WHITE BLOOD COUNT 10.8 10^3/uL (4.0-10.5)
[2017-05-04 05:17] LABS: ANION GAP 13 (5-19); BLOOD UREA NITROGEN 24 mg/dL (7-20); CALCIUM 8.9 mg/dL (8.4-10.2); CARBON DIOXIDE 21 mmol/L (22-30); CHLORIDE 106 mmol/L (98-107); CREATININE RESULT 1.14 mg/dL (0.52-1.25); GLUCOSE 98 mg/dL (75-110); MAGNESIUM 1.9 mg/dL (1.6-2.3); SODIUM 140.3 mmol/L (137-145)
[2017-05-04] MEDS ORDERED: APIXABAN 5 MG TABLET PO SCH ×2 (10:00)
[2017-05-04] MEDS ORDERED: PREDNISONE 10 MG TABLET PO SCH (10:00)
--- NOTE | 2017-05-04 13:40 | PDOC CONSULTATION ---
Consultation Consult Date: 05/04/17 Consult reason:: Recurrent DVTs History of Present Illness Admission Date/PCP: 05/03/17 18:38 History of Present Illness: Mr. Ring is a 26 year old male who was originally diagnosed with bilateral PEs in Dec 2016, after presenting to Urgent care with acute dyspnea. CT of the lungs found PE as well as abnormalities thought to be due to Sarcoidosis. He was started on Eliquis and did well with this medication. He then underwent Bronchoscopy and CT guided needle biopsies which finally confirmed the diagnosis of sarcoid. 3 weeks ago, his bell attendant stopped the Eliquis (completed 3 months of treatment) and started prednisone and methotrexate for the sarcoid. A princess filter was also placed. 3 Days ago, he developed sudden severe pain in his legs and abdomen. He presented to the ED and last night was found to have extensive DVTs. He was admitted for pain and difficulty ambulating due to the blood clots. He was started back on Eliquis. This morning, he is feeling better. He is now able to walk to the bathroom and back without pain and his feet are no longer turning purple. However, he is unable to walk more than 50 yards with pain. Past Medical History Past Medical History: Sarcoidosis, otherwise, as per HPI. Psychiatric Medical History: Denies: Depression Past Surgical History Past Surgical History: Reports: Other - IVC filter placement, Bronchosocopy and trans thoracic needle biopsy. Social History Information Source: Patient Occupation: [employer]. Long periods of driving are involved. Lives with: Family Smoking Status: Never Smoker Frequency of Alcohol Use: Social Hx Recreational Drug Use: No Drugs: None Hx Prescription Drug Abuse: No Past Social History Note: He is engaged and has no children. - Advance Directive Resuscitation Status: Full Code Family History Family History: CAD, Malignancy - MGF with Colon and Thyroid cancers. Family History: CVAs, but no known history of blood clots. Parental Family History Reviewed: Yes Children Family History Reviewed: NA Sibling(s) Family History Reviewed.: Yes Medication/Allergy Home Medications: Apixaban [Eliquis] 5 - 10 mg PO Q12 #50 tablet 05/03/17 Folic Acid [Folic Acid] 1 mg PO MOTUWETHFR@1000 PRN 05/03/17 Methocarbamol [Robaxin 500 mg Tablet] 500 mg PO Q8 05/03/17 Methotrexate Sodium [Rheumatrex 2.5 mg Tablet] 10 mg PO SA@1000 PRN 05/03/17 Oxycodone HCl/Acetaminophen [Percocet 5-325 mg Tablet] 1 tab PO Q6HP PRN Prednisone [Deltasone 10 mg Tablet] 10 mg PO ASDIR PRN 05/03/17 Prednisone [Deltasone 10 mg Tablet] 20 mg PO DAILY 05/03/17 Trazodone HCl [Trazodone HCl] 100 mg PO QHS 05/03/17 Allergies/Adverse Reactions: morphine Allergy (Verified 05/03/17 11:39) Review of Systems Constitutional: ABSENT: fever(s), headache(s) Eyes: ABSENT: visual disturbances Ears: ABSENT: hearing changes Nose, Mouth, and Throat: ABSENT: sore throat Cardiovascular: PRESENT: dyspnea on exertion Respiratory: ABSENT: cough Gastrointestinal: PRESENT: abdominal pain. ABSENT: diarrhea, vomiting Genitourinary: ABSENT: dysuria Musculoskeletal: PRESENT: as per HPI Integumentary: PRESENT: as per HPI Neurological: ABSENT: focal weakness, memory loss Psychiatric: PRESENT: other - Insomnia Endocrine: PRESENT: heat intolerance Hematologic/Lymphatic: ABSENT: easy bleeding Physical Exam Vital Signs: Temp Pulse Resp BP Pulse Ox 97.5 F 59 L 17 134/78 H 99 05/04/17 03:31 05/04/17 07:00 05/04/17 03:31 05/04/17 03:31 05/04/17 03:31 Intake & Output 05/03/17 05/04/17 05/05/17 06:59 06:59 06:59 Intake Total 1000 Output Total 200 Balance 800 Weight 128.4 kg General appearance: PRESENT: no acute distress, obese Exam: 26 year old male. Mother, Father, Fiance all at bedside. Head exam: PRESENT: atraumatic Eye exam: PRESENT: PERRLA Ear exam: PRESENT: normal external ear exam Mouth exam: PRESENT: dry mucosa, tongue midline Neck exam: ABSENT: lymphadenopathy, tenderness Pulses: PRESENT: normal dorsalis pedis pul GI/Abdominal exam: PRESENT: soft. ABSENT: tenderness Extremities exam: ABSENT: pedal edema Neurological exam: PRESENT: alert, awake, oriented to person, oriented to place , oriented to time, oriented to situation Psychiatric exam: PRESENT: appropriate affect Focused psych exam: ABSENT: pressured speech, restlessness Skin exam: PRESENT: normal color Results Laboratory Results: 05/04/17 04:45 05/04/17 04:45 05/04/17 05/04/17 04:45 04:45 WBC 10.8 H RBC 4.72 Hgb 14.2 Hct 41.4 MCV 88 MCH 30.0 MCHC 34.2 RDW 15.3 H Plt Count 181 Seg Neutrophils % 85.8 H Lymphocytes % 9.1 L Monocytes % 4.5 Eosinophils % 0.1 Basophils % 0.5 Absolute Neutrophils 9.3 H Absolute Lymphocytes 1.0 Absolute Monocytes 0.5 Absolute Eosinophils 0.0 Absolute Basophils 0.1 Sodium 140.3 Potassium 4.0 Chloride 106 Carbon Dioxide 21 L Anion Gap 13 BUN 24 H Creatinine 1.14 Est GFR ( Amer) > 60 Est GFR (Non-Af Amer) > 60 Glucose 98 Calcium 8.9 Magnesium 1.9 Impressions: Lumbar Spine MRI 05/03/17 12:23 IMPRESSION: Inferior vena cava thrombosis, clot in the left common iliac vein in the field of view. Findings discussed with Dev Benton in the emergency room No distal thoracic cord or conus edema or extrinsic compression No lumbar disc protrusion/herniation or significant central or foraminal encroachment Venous Doppler Study 05/03/17 15:02 IMPRESSION: Unable to assess the inferior vena cava and iliac veins with ultrasound patient large body habitus and bowel gas There is non phasic flow in the right and left common femoral veins. Unable augment flow on the left with calf squeeze. This is indirect evidence to support caval thrombosis as suggested by lumbar MRI performed earlier today Assessment & Plan - Diagnosis (1) DVT (deep venous thrombosis) Qualifiers: DVT location: lower extremity Affected thrombotic vein of extremity: iliac Chronicity: acute Laterality: left Qualified Code(s): I82.422 - Acute embolism and thrombosis of left iliac vein Plan: Plan to be discharged with Jony. We discussed the plan for at least 6 months of therapy. We discussed the fact that his blood clots will dissolve on their own in their own time and he will most likely have continued symptoms for at least the next 6 weeks. I will try to order LESLEE Hose to use when sitting. We discussed importance of activity. Hypercoag panel has been drawn and is pending. I will review results of this as outpatient. (2) Sarcoidosis Plan: I agree with prednisone and MTX. The inflammatory process of this disease can cause blood clots. Therefore, as long as he is symptomatic, he should continue blood thinners. He will continue to follow with Pulmonary as outpatient. - Plan Summary Plan Summary: I spent 45 minutes with patient and family and all questions were answered to the best of my ability. I will continue to follow as outpatient. He already has some pain medications at home if needed. I will see him in the office after the first of the year.
[2017-05-04 16:12] VITALS: BP 150/88
--- NOTE | 2017-05-04 17:26 | PDOC DISCHARGE SUMMARY ---
General - Admit/Disc Date/PCP Admission Date/Primary Care Provider: 05/03/17 18:38 Discharge Date: 05/04/17 - Discharge Diagnosis (1) Sarcoidosis Is this a current diagnosis for this admission?: Yes Summary: Continue prednisone and methotrexate. (2) DVT (deep venous thrombosis) Is this a current diagnosis for this admission?: Yes Summary: Continue Eliquis as directed. (3) Lumbar back pain Is this a current diagnosis for this admission?: Yes Summary: Much improved prior to discharge. - Additional Information Resuscitation Status: Full Code Discharge Diet: Regular Discharge Activity: Activity As Tolerated Prescriptions: Apixaban [Eliquis] 5 - 10 mg PO Q12 #50 tablet Home Medications: Apixaban [Eliquis] 5 - 10 mg PO Q12 #50 tablet 05/03/17 Folic Acid [Folic Acid] 1 mg PO MOTUWETHFR@1000 PRN 05/03/17 Methocarbamol [Robaxin 500 mg Tablet] 500 mg PO Q8 05/03/17 Methotrexate Sodium [Rheumatrex 2.5 mg Tablet] 10 mg PO SA@1000 PRN 05/03/17 Oxycodone HCl/Acetaminophen [Percocet 5-325 mg Tablet] 1 tab PO Q6HP PRN Prednisone [Deltasone 10 mg Tablet] 10 mg PO ASDIR PRN 05/03/17 Prednisone [Deltasone 10 mg Tablet] 20 mg PO DAILY 05/03/17 Trazodone HCl [Trazodone HCl] 100 mg PO QHS 05/03/17 History of Present Illness History of Present Illness: CHI BARONE is a 26 year old white male with a past medical history significant of multiple DVTs and PEs that were initially diagnosed in December of this year. In addition to the diagnosis of multiple PEs and DVTs, the patient was also diagnosed with sarcoidosis by biopsy. The patient developed clots and has been worked up by his contact lens polisher in [place], Dr. Paredes. The patient states that his belief was that he developed multiple clots because he travels a great deal. 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 The patient is also been diagnosed with sarcoidosis and had an IVC filter placed prior to biopsy for diagnosis of his sarcoidosis. He has been on chronic prednisone methotrexate, and folic acid. The patient had been on Eliquis for 3 months. He states that his contact lens polisher and his mineral wool insulation supervisor , Dr. Aura Belcher in [place], decided to take him off of his Eliquis because he was doing well. Unfortunately on Saturday the patient developed back pain and leg pain and began to have progressive difficulty walking. He came into the ER Saturday but was ultimately sent back out to follow-up with his physicians. The patient continued to have pain and came back yesterday and again was sent home. He returns to the emergency room today with the same complaints and increased difficulty walking. The patient underwent MRI as well as ultrasound of the lower extremities which revealed a left common iliac clot and IVC clot. I did ask the physician assistant engineer in the emergency room to contact Dr. Bello with hematology. As I felt the patient could likely be started on anticoagulation and sent home. She was in agreement with this and gave orders to the physician assistant engineer as to how to treat the patient and how to follow-up with her in her office. However, the patient really felt nervous about going home and is still having back pain. Therefore he is admitted to our service. Hospital Course Hospital Course: Patient was admitted to the observation unit. He has an IVC clot as well as a left common femoral clot. He did well overnight. His hypercoagulability panel was drawn. The patient stated that he feels so much better today. He was able to ambulate and felt much more comfortable and in less pain. I did notify him that his prothrombin gene mutation could not be ordered because of some sort of lab confusion. The name of this test is also called factor II. It could be reordered this way. However, the patient tells me he is already had a factor II level done. He could not had many of the other hypercoagulable tests done secondary to being on Eliquis. Hopefully these tests will be back and he can follow-up either with his current contact lens polisher or with Dr. Bello. We discussed getting an evaluation by Dr. Bello prior to his being discharged today. If she is able to accommodate this that will be great. If not he may follow-up with her in the office or with his previous contact lens polisher. The patient already has a prescription for Eliquis that he was given down in the emergency room. He is currently fit for discharge. Physical Exam Vital Signs: Temp Pulse Resp BP Pulse Ox 97.5 F 59 L 17 134/78 H 99 05/04/17 03:31 05/04/17 07:00 05/04/17 03:31 05/04/17 03:31 05/04/17 03:31 Intake & Output 05/03/17 05/04/17 05/05/17 06:59 06:59 06:59 Intake Total 1000 Output Total 200 Balance 800 Weight 128.4 kg GENERAL: This is a well-developed and nourished appearing morbidly obese white male resting in bed currently in no acute distress. HEART: Regular rate and rhythm. No murmurs, rubs or gallops. LUNGS: Clear to auscultation bilaterally with equal rise and fall of the chest. ABDOMEN: Soft, nontender, nondistended with normoactive bowel sounds EXTREMETIES: No clubbing, cyanosis or edema. 2+ peripheral pulses bilaterally. NEURO: Awake, alert and oriented 3. Cranial nerves II through XII are specifically intact. Results Laboratory Results: 05/04/17 04:45 05/04/17 04:45 05/04/17 05/04/17 04:45 04:45 WBC 10.8 H RBC 4.72 Hgb 14.2 Hct 41.4 MCV 88 MCH 30.0 MCHC 34.2 RDW 15.3 H Plt Count 181 Seg Neutrophils % 85.8 H Lymphocytes % 9.1 L Monocytes % 4.5 Eosinophils % 0.1 Basophils % 0.5 Absolute Neutrophils 9.3 H Absolute Lymphocytes 1.0 Absolute Monocytes 0.5 Absolute Eosinophils 0.0 Absolute Basophils 0.1 Sodium 140.3 Potassium 4.0 Chloride 106 Carbon Dioxide 21 L Anion Gap 13 BUN 24 H Creatinine 1.14 Est GFR ( Amer) > 60 Est GFR (Non-Af Amer) > 60 Glucose 98 Calcium 8.9 Magnesium 1.9 Impressions: Lumbar Spine MRI 05/03/17 12:23 IMPRESSION: Inferior vena cava thrombosis, clot in the left common iliac vein in the field of view. Findings discussed with Dev Benton in the emergency room No distal thoracic cord or conus edema or extrinsic compression No lumbar disc protrusion/herniation or significant central or foraminal encroachment Venous Doppler Study 05/03/17 15:02 IMPRESSION: Unable to assess the inferior vena cava and iliac veins with ultrasound patient large body habitus and bowel gas There is non phasic flow in the right and left common femoral veins. Unable augment flow on the left with calf squeeze. This is indirect evidence to support caval thrombosis as suggested by lumbar MRI performed earlier today Qualifiers PATEINT BEING DISCHARGED WITH ANY OF THE FOLLOWING DIAGNOSIS?: No Plan Time Spent: Less than 30 Minutes
[2017-05-05 18:27] LABS: ANTITHROMBIN III ACTIVITY 118 % (75-135)
[2017-05-06 08:38] LABS: DILUTE RUSSELL VIPOR VENOM 61.1 sec (0.0-47.0); PTT-LA 32.4 sec (0.0-51.9); THROMBIN TIME 17.4 sec (0.0-23.0)
[2017-05-06 09:40] LABS: LUPUS PANEL INTERPRETATION Comment: (.)
[2017-05-06] MEDS ORDERED: FOLIC ACID 1 MG TABLET PO SCH (10:00)
[2017-05-06 15:01] LABS: FACTOR V ACTIVITY 115 % (70-150); PROTEIN S FREE 94 % (57-157); PROTEIN S FUNCTIONAL 106 % (63-140); PROTEIN S TOTAL 83 % (60-150)
[2017-05-06 16:38] LABS: PROTEIN C ANTIGEN 95 % (60-150)
[2017-05-07 07:29] LABS: PROTEIN C ACTIVITY 140 % (73-180)
== END 2017-05-04 17:31 | disposition home or self-care (01) ==
LOC: ER 11:38 → EH 18:38 → 4N 20:06
PROVIDERS: ADMIT Hospitalist; ATTEND Hospitalist
DX: I82.422 Acute embolism and thrombosis of left iliac vein (principal); I82.220 Acute embolism and thrombosis of inferior vena cava; D86.9 Sarcoidosis, unspecified; M54.5 Low back pain; E66.01 Morbid (severe) obesity due to excess calories; G47.00 Insomnia, unspecified; R10.9 Unspecified abdominal pain; Z86.711 Personal history of pulmonary embolism; Z86.718 Personal history of other venous thrombosis and embolism; Z79.52 Long term (current) use of systemic steroids; Z68.38 Body mass index [BMI] 38.0-38.9, adult; Z95.828 Presence of other vascular implants and grafts
CPT/HCPCS: 99285; 96372; 96374; 36415 ×2; 85305; 85306; 83735; 85302; 85025 ×2; 85384; 85610; 85730; 81291; 85300; 85301; 80048; 80053; 81001; 85220; 86225; 83520; 86235 ×4; 81241; 93970; 72148; J3010; J1100

== ENCOUNTER → 2017-08-16 | Outpatient (CLI) | payer BC ==
[2017-08-16 10:52] LABS: APPEARANCE,URINE CLEAR; BILIRUBIN,URINE NEGATIVE (NEGATIVE); COLOR,URINE YELLOW; GLUCOSE, URINE NEGATIVE (NEGATIVE); KETONES,URINE NEGATIVE (NEGATIVE); LEUKOCYTE ESTERASE,URINE NEGATIVE (NEGATIVE); NITRITE,URINE NEGATIVE (NEGATIVE); PROTEIN,URINE >=500 mg/dL (NEGATIVE); UROBILINOGEN,URINE NEGATIVE mg/dL (<2.0)
[2017-08-16 10:53] LABS: ANION GAP 12 (5-19); BLOOD UREA NITROGEN 21 mg/dL (7-20); CALCIUM 9.5 mg/dL (8.4-10.2); CARBON DIOXIDE 21 mmol/L (22-30); CHLORIDE 106 mmol/L (98-107); GLUCOSE 89 mg/dL (75-110); SODIUM 139.1 mmol/L (137-145)
[2017-08-17 06:48] LABS: COMPLEMENT C4 25 mg/dL (14-44)
[2017-08-17 15:32] LABS: MICROALBUMIN URINE 1414.7 ug/mL (Not Estab.)
[2017-08-17 15:33] LABS: COMPLEMENT C3 146 mg/dL (82-167)
[2017-08-19 16:39] LABS: A/G RATIO 1.6 (0.7-1.7); ALBUMIN 2 3.6 g/dL (2.9-4.4); ALPHA-2-GLOBULIN 2 0.6 g/dL (0.4-1.0); GAMMA GLOBULIN 0.5 g/dL (0.4-1.8); GLOBULIN TOTAL 2.3 g/dL (2.2-3.9); MONOCLONAL SPIKE Not Observed g/dL (Not Observed); PROTEIN TOTAL SERUM 5.9 g/dL (6.0-8.5)
[2017-08-19 17:37] LABS: ANTIMYELOPEROXIDASE (MPO) AB <9.0 U/mL (0.0-9.0); ANTIPROTEINASE 3 (PR-3) AB <3.5 U/mL (0.0-3.5); CYTOPLASMIC (C-ANCA) <1:20 titer (Neg:<1:20)
[2017-08-19 17:42] LABS: GLOMERULAR BASMENT MEMBRANE AB 5 units (0-20)
[2017-08-19 17:48] LABS: ATYPICAL PANCA <1:20 titer (Neg:<1:20); PERINUCLEAR (P-ANCA) <1:20 titer (Neg:<1:20)
== END ==
LOC: OD 09:35
PROVIDERS: ATTEND Internal Medicine Nephrology
DX: N17.9 Acute kidney failure, unspecified (principal); R80.9 Proteinuria, unspecified; R31.29 Other microscopic hematuria; D68.61 Antiphospholipid syndrome
CPT/HCPCS: 36415; 80048; 81001; 82043; 82570; 82595; 83516; 84165; 86038; 86160; 86256

== ENCOUNTER 2017-09-18 18:56 | Emergency (ER) | payer BC ==
[2017-09-18 19:08] VITALS: BP 149/94
[2017-09-18 21:41] LABS: ABSOLUTE BASOPHILS # (AUTO) 0.1 10^3/uL (0.0-0.2); ABSOLUTE EOSINOPHILS # (AUTO) 0.1 10^3/uL (0.0-0.6); ABSOLUTE LYMPHOCYTES (AUTO) 1.3 10^3/uL (0.5-4.7); ABSOLUTE MONOCYTES (AUTO) 0.3 10^3/uL (0.1-1.4); BASOPHILS % (AUTO) 1.5 % (0-2); EOSINOPHILS % (AUTO) 1.6 % (0-6); HEMATOCRIT 47.1 % (37.9-51.0); HEMOGLOBIN 16.1 g/dL (13.5-17.0); LYMPHOCYTES % (AUTO) 26.8 % (13-45); MEAN CORPUSCULAR HEMOGLOBIN 29.5 pg (27.0-33.4); MEAN CORPUSCULAR HGB CONC 34.2 g/dL (32.0-36.0); MEAN CORPUSCULAR VOLUME 86 fl (80-97); MONOCYTES % (AUTO) 5.9 % (3-13); PLATELET COUNT 251 10^3/uL (150-450); RED BLOOD COUNT 5.46 10^6/uL (4.35-5.55); RED CELL DISTRIBUTION WIDTH 13.6 % (11.5-14.0); SEGMENTED NEUTROPHILS % (AUTO) 64.2 % (42-78); TOTAL CELLS COUNTED % (AUTO) 100 %; WHITE BLOOD COUNT 4.8 10^3/uL (4.0-10.5)
[2017-09-18 21:56] LABS: INTERNATIONAL RATION (INR) 0.97; PROTHROMBIN TIME 13.3 SEC (11.4-15.4)
[2017-09-18 21:57] LABS: PARTIAL THROMBOPLASTIN TIME 31.3 SEC (23.5-35.8)
[2017-09-18 21:58] LABS: ALANINE AMINOTRANSFERASE 40 U/L (21-72); ALBUMIN 4.4 g/dL (3.5-5.0); ALKALINE PHOSPHATASE 46 U/L (38-126); ANION GAP 14 (5-19); ASPARTATE AMINO TRANSFERASE 27 U/L (17-59); BILIRUBIN,DIRECT 0.4 mg/dL (0.0-0.4); BILIRUBIN,TOTAL 0.4 mg/dL (0.2-1.3); BLOOD UREA NITROGEN 15 mg/dL (7-20); CARBON DIOXIDE 22 mmol/L (22-30); CHLORIDE 106 mmol/L (98-107); GLUCOSE 90 mg/dL (75-110); POTASSIUM 4.3 mmol/L (3.6-5.0); SODIUM 141.6 mmol/L (137-145); TOTAL PROTEIN 6.9 g/dL (6.3-8.2)
--- NOTE | 2017-09-18 22:02 | ER Document Report ---
ED Extremity Problem, Lower - General Mode of Arrival: Ambulatory Information source: Patient TRAVEL OUTSIDE OF THE [place] IN LAST 30 DAYS: No - HPI Patient complains to provider of: Swelling Location: Leg - left Occurred: Other - 5 days ago Context: Other - see notes above Associated symptoms: Other - see notes above <CHI SANCHEZ - Last Filed: 09/19/17 03:46> <JESUS NUNES - Last Filed: 09/19/17 04:32> - General Chief Complaint: Leg Swelling Stated Complaint: LEFT UPPER TIGH PAIN Time Seen by Provider: 09/18/17 21:21 Notes: 27 year old man with history of DVTs (on Eliquis), anti-phospholipid syndrome, and sarcoidosis presents to the ED complaining of left leg swelling that started 5 days ago and has been getting progressively worse. Patient reports that his leg has been the most swollen today and was purple while in the waiting room. Patient denies any trauma, but states he has some intermittent shortness of breath. Patient reports that the last time he felt like this he had a DVT. December 2016 patient had bilateral pulmonary emboli and an embolus behind the right knee. Patient was started on Eliquis at this time and discontinued in April 2017. Within a few weeks, the patient developed emboli to the left leg and to his IVC filter. Patient resumed Eliquis in May 2017 (5 mg BID). PCP: Gladys Small Rhemotologist: Dr. Carter District Associate Judge: Dr. Lewis Synoptic Meteorologist: Dr. Bello (CHI SANCHEZ) - Related Data Allergies/Adverse Reactions: morphine Allergy (Verified 09/18/17 18:57) Past Medical History - General Information source: Patient - Social History Smoking Status: Unknown if Ever Smoked Family History: CAD, Malignancy - MGF with Colon and Thyroid cancers. Patient has suicidal ideation: No Patient has homicidal ideation: No - Past Medical History Cardiac Medical History: Reports: Hx DVT - December 2016 and April 2017 Renal/ Medical History: Denies: Hx Peritoneal Dialysis Psychiatric Medical History: Denies: Hx Depression Past Surgical History: Reports: Other - IVC filter placement, Bronchosocopy and trans thoracic needle biopsy. - Immunizations Hx Diphtheria, Pertussis, Tetanus Vaccination: No - Unknown last Tetanus. <CHI SANCHEZ - Last Filed: 09/19/17 03:46> <JESUS NUNES - Last Filed: 09/19/17 04:32> - Medical History Notes: Sarcoidosis and anti-phospholipid syndrome (CHI SANCHEZ) Review of Systems - Review of Systems Constitutional: No symptoms reported EENT: No symptoms reported Cardiovascular: No symptoms reported Respiratory: See HPI, Short of breath Gastrointestinal: No symptoms reported Genitourinary: No symptoms reported Male Genitourinary: No symptoms reported Musculoskeletal: See HPI, Leg swelling - left Skin: No symptoms reported Hematologic/Lymphatic: No symptoms reported Neurological/Psychological: No symptoms reported -: Yes All other systems reviewed and negative <CHI SANCHEZ - Last Filed: 09/19/17 03:46> Physical Exam - General General appearance: Alert In distress: None - HEENT Head: Normocephalic, Atraumatic Eyes: Normal Extraocular movements intact: Yes Pupils: PERRL - Respiratory Respiratory status: No respiratory distress Breath sounds: Normal - Cardiovascular Rhythm: Regular Heart sounds: Normal auscultation - Abdominal Inspection: Normal - Extremities General upper extremity: Normal inspection General lower extremity: Normal weight bearing, Other - Non-pitting edema to the left lower extremity. No warmth or erythema. Patient is able to ambulate. 2 + pulses throughout.. No: Normal inspection - Neurological Neuro grossly intact: Yes - Psychological Associated symptoms: Normal affect, Normal mood - Skin Skin Temperature: Warm Skin Moisture: Dry Skin Color: Normal <CHI SANCHEZ - Last Filed: 09/19/17 03:46> - Vital signs Vitals: Temp Pulse Resp BP Pulse Ox 98.7 F 86 18 149/94 H 97 09/18/17 19:07 09/18/17 19:07 09/18/17 19:07 09/18/17 19:07 09/18/17 19:07 Course - Laboratory Result Diagrams: 09/18/17 21:33 09/18/17 21:33 <CHI SANCHEZ - Last Filed: 09/19/17 03:46> - Laboratory Result Diagrams: 09/18/17 21:33 09/18/17 21:33 - Diagnostic Test Radiology reviewed: Reports reviewed <JESUS NUNES - Last Filed: 09/19/17 04:32> - Re-evaluation Re-evalutation: 09/18 Patient is a 27-year-old male who comes in with concern for swelling of his left leg. Denies any trauma or injury. Patient has a DVT history and also PE in the past. He is currently on Eliquis and is followed by hematology. Patient does not have any evidence for DVT in his leg or PE. His blood work is within normal limits. No evidence for infection. Patient is comfortable going home at this time. He has good pulses and normal exam with only some mild swelling in his left leg compared to his right which I am not sure is new today. He is to return if he has any worsening or concerning symptoms. Understands agrees with plan. Stable for discharge. Grateful for care. (JESUS NUNES) - Vital Signs Vital signs: Temp Pulse Resp BP Pulse Ox 98.7 F 86 18 149/94 H 97 09/18/17 19:07 09/18/17 19:07 09/18/17 19:07 09/18/17 19:07 09/18/17 19:07 - Laboratory Laboratory results interpreted by me: 09/18/17 21:40 Urine Protein >=500 H Urine Blood SMALL H Discharge <CHI SANCHEZ - Last Filed: 09/19/17 03:46> <JESUS NUNES - Last Filed: 09/19/17 04:32> - Discharge Clinical Impression: Left leg swelling Condition: Stable Disposition: HOME, SELF-CARE Instructions: Edema, Peripheral ([facility]), Leg Pain Nonspecific ([facility]) Additional Instructions: There was no evidence for a new blood clot in your leg. There were no clots in your lungs. Your blood work appears normal. You do have protein in your urine. Please follow-up with your doctors as scheduled. Referrals: MILLER AUGUSTE FNP [Primary Care Provider] - Follow up as needed Scribe Attestation: 09/19/17 04:32 I personally performed the services described in the documentation, reviewed and edited the documentation which was dictated to the scribe in my presence, and it accurately records my words and actions. (JESUS NUNES) Scribe Documentation - Scribe Written by Cmibe:: Munir Draper, 09/18/2017 [id number] acting as scribe for :: Deana <CHI SANCHEZ - Last Filed: 09/19/17 03:46>
[2017-09-18 22:08] LABS: APPEARANCE,URINE SLIGHTLY-CLOUDY; BILIRUBIN,URINE NEGATIVE (NEGATIVE); COLOR,URINE YELLOW; GLUCOSE, URINE NEGATIVE (NEGATIVE); KETONES,URINE NEGATIVE (NEGATIVE); LEUKOCYTE ESTERASE,URINE NEGATIVE (NEGATIVE); NITRITE,URINE NEGATIVE (NEGATIVE); PROTEIN,URINE >=500 mg/dL (NEGATIVE); URINE SPECIFIC GRAVITY 1.027; UROBILINOGEN,URINE NEGATIVE mg/dL (<2.0)
--- NOTE | 2017-09-18 23:30 | RADIOLOGY REPORT (SQ) ---
EXAM DESCRIPTION: CTA CHEST COMPLETED DATE/TIME: 09/18/2017 11:11 pm REASON FOR STUDY: h/o DVT, PE, SOB today COMPARISON: None. TECHNIQUE: CT scan of the chest performed using helical scanning technique with dynamic intravenous contrast injection. Images reviewed with lung, soft tissue and bone windows. Reconstructed coronal and sagittal MPR images reviewed. Additional 3 dimensional post-processing performed to develop Maximal Intensity Projection images (AL P). All images stored on PACS. All CT scanners at this facility use dose modulation, iterative reconstruction, and/or weight based d osing when appropriate to reduce radiation dose to as low as reasonably achievable (ALARA). [facility]: Dose Right [facility]: CareDose [facility]: Dose Right [facility]: Teradose 4D [facility]: AGC CONTRAST TYPE AND DOSE: contrast/concentration: Isovue 370.00 mg/ml; Total Contrast Delivered: 100.0 ml; Total Saline Delivered: 33.1 ml Contrast bolus optimized for the pulmonary arteries. Not diagnostic for the aorta. RENAL FUNCTION: None required. The patient is less than 50 years old. RADIATION DOSE: CT Rad equipment meets quality standard of care and radiation dose reduction techniq ues were employed. CTDIvol: 40.4 mGy. DLP: 1440 mGy-cm. . LIMITATIONS: None. FINDINGS: LUNGS AND PLEURA: Multiple areas of small nodular and tree-in-bud opacities throughout the right middle lobe an some scattered areas in the lingula. Small areas of nodularity -intra pulmonar y of lymph nodes are present in the inferior right major fissure. No dense consolidation or pleural effusion. AORTA AND GREAT VESSELS: No aneurysm. Contrast bolus not optimized for the aorta. HEART: No pericardial effusion. No significant coronary artery calcifications. PULMONARY ARTERIES: No emboli visualized in the main pulmonary arteries or the segmental branches. HILAR AND MEDIASTINAL STRUCTURES: Multiple bulky abnormal nodes in the johnnie and mediastinum, largest node measuring 2.9 cm in the superior right hilus. HARDWARE: None in the chest. UPPER ABDOMEN: No significant findings. Limited exam. THYROID AND OTHER SOFT TISSUES: No masses. No adenopathy. BONES: No acute or significant finding. 3D MIPS: Confirm above findings. OTHER: No other significant finding. IMPRESSION: Multiple areas of small nodular and tree-in-bud opacities throughout the right middle lo be an some scattered areas in the lingula, most consistent with small airways disease. Bulky hilar a nd mediastinal lymphadenopathy. NO PULMONARY EMBOLI. COMMENT: Quality ID # [id number]: Final reports with documentation of one or more dose reduction techniques (e.g., Automated exposure control, adjustment of the mA and/or kV according to patient size, use of iterative reconstruction technique) TECHNICAL DOCUMENTATION: JOB ID: [id number] [place]-72 2010 [employer]- All Rights Reserved Reading location - IP/workstation name: [email or web address]
--- NOTE | 2017-09-19 00:10 | RADIOLOGY REPORT (SQ) ---
EXAM DESCRIPTION: VENOUS UNILATERAL LOWER COMPLETED DATE/TIME: 09/18/2017 11:25 pm REASON FOR STUDY: LLE swelling, Hx of DVTs COMPARISON: None. TECHNIQUE: Dynamic and static perez scale and color images acquired of the left leg venous system. Se lected spectral images acquired with additional compression and augmentation maneuvers. The contralat eral common femoral vein and saphenofemoral junction were also imaged. Images stored on PACS. LIMITATIONS: None. FINDINGS: COMMON FEMORAL: Normal phasicity, compression and augmentation. No visualized echogenic ma terial on perez scale. No defects on color images. FEMORAL: Normal compression and augmentation. No visualized echogenic material on perez scale. No defe cts on color images. POPLITEAL: Normal compression, augmentation. No visualized echogenic material on perez scale. No defec ts on color images. CALF VESSELS: Normal compression, augmentation. No visualized echogenic material on perez scale. No de fects on color images. GSV and SSV: Normal compression, augmentation. No visualized echogenic material on peerz scale. No def ects on color images. ANY DEEP VENOUS INSUFFICIENCY: Not evaluated. ANY EVIDENCE OF POPLITEAL CYST: No. OTHER: No other significant finding. CONTRALATERAL COMMON FEMORAL VEIN AND SAPHENOFEMORAL JUNCTION: Normal phasicity, compression and augmentation. No visualized echogenic material on perez scale. No de fects on color images. IMPRESSION: NO EVIDENCE OF DVT OR SVT IN THE LEFT LEG. TECHNICAL DOCUMENTATION: JOB ID: [id number] [place]-72 2010 [employer]- All Rights Reserved Reading location - IP/workstation name: [email or web address] [facility] [employer]
== END 2017-09-19 00:18 | disposition home or self-care (01) ==
LOC: ER 18:56
DX: M79.89 Other specified soft tissue disorders (principal); Z86.718 Personal history of other venous thrombosis and embolism; Z86.711 Personal history of pulmonary embolism; Z79.01 Long term (current) use of anticoagulants
CPT/HCPCS: 36415; 71275; 80053; 81001; 85025; 85610; 85730; 93971; 99284

== ENCOUNTER 2017-10-02 05:52 | Day surgery (SDC) | payer BC ==
[2017-10-02 06:28] LABS: HEMATOCRIT 47.2 % (37.9-51.0); HEMOGLOBIN 16.1 g/dL (13.5-17.0); MEAN CORPUSCULAR HEMOGLOBIN 29.2 pg (27.0-33.4); MEAN CORPUSCULAR HGB CONC 34.2 g/dL (32.0-36.0); MEAN CORPUSCULAR VOLUME 85 fl (80-97); PLATELET COUNT 254 10^3/uL (150-450); RED BLOOD COUNT 5.52 10^6/uL (4.35-5.55); RED CELL DISTRIBUTION WIDTH 13.4 % (11.5-14.0); WHITE BLOOD COUNT 4.7 10^3/uL (4.0-10.5)
[2017-10-02 06:32] LABS: INTERNATIONAL RATION (INR) 0.83; PARTIAL THROMBOPLASTIN TIME 28.6 SEC (23.5-35.8); PROTHROMBIN TIME 11.8 SEC (11.4-15.4)
[2017-10-02 06:44] LABS: BLOOD UREA NITROGEN 21 mg/dL (7-20)
[2017-10-02] MEDS ORDERED: MIDAZOLAM 2 MG/2 ML INJ ONE ×2 (07:29→08:33)
[2017-10-02] MEDS ORDERED: LIDOCAINE 1% INJ-PF (10 MG/ML) 30 ML SDV ONE (07:30)
[2017-10-02] MEDS ORDERED: FENTANYL CITRATE INJ/PF 100 MCG/2 ML AMPUL ONE (07:30)
--- NOTE | 2017-10-02 09:47 | RADIOLOGY REPORT (SQ) ---
EXAM DESCRIPTION: CT BIOPSY RENAL; CT NEEDLE PLACEMENT COMPLETED DATE/TIME: 10/02/2017 9:13 am; 10/02/2017 9:12 am REASON FOR STUDY: PROTEINURIA; PROTEINURIA, RENAL BIOPSY R80.9 PROTEINURIA, UNSPECIFIED COMPARISON: CT angio chest 09/18/2017 CT abdomen pelvis 05/01/2017 RADIATION DOSE: 38 mGy. LIMITATIONS: None. PROCEDURE: Procedure was discussed with the patient and the patient agreed to the procedure. Preliminary CT scanning to localize the biopsy site was performed. A site was marked on the right lo wer pole kidney and time out was performed. Procedure was performed using CT fluoroscopy. Total expo sure time: 9.5 S. 54CT fluoroscopic images were obtained and saved to PACS. IV conscious sedation was administered and physician direction by the registered nurse using 2 millig topher of Versed and 75 micrograms of fentanyl. Physiologic monitoring was provided before, during, and after sedation. The total sedation time was 30 minutes. Documentation face to face time, the performing proceduralist, spent monitoring the patient: [place]. After sterile skin prep with ChloraPrep, local lidocaine for skin and deep tissue anesthesia, the rig ht lower pole kidney was localized. A coaxial 18/19 gauge needle was used to obtain 5 cores of tissue from the right lower pole kidney. The biopsy tract was embolized with Gelfoam. No immediate postpr ocedure complications. All CT scanners at this facility use dose modulation, iterative reconstruction, and/or weight based d osing when appropriate to reduce radiation dose to as low as reasonably achievable (ALARA). [facility]: Dose Right [facility]: CareDose [facility]: Dose Right [facility]: Teradose 4D [facility]: Smart [employer] FINDINGS: There were no immediate complications. Specimen was carried to cytology on sterile saline gauze and submitted to the cementer hand for processing. Pathology is pending at the time of dict ation. IMPRESSION: CT GUIDED RIGHT KIDNEY CORTICAL BIOPSY. COMMENT: Patient medication list reviewed:Yes- Quality ID# [id number]:Eligible professional attests to docu menting in the medical record they obtained, updated, or reviewed the patient's current medications.. TECHNICAL DOCUMENTATION: JOB ID: [id number] Quality ID #[id number]: Final reports for procedures using fluoroscopy that document radiation exposure mariah rahat, or exposure time and number of fluorographic images (if radiation exposure indices are not avail able) Quality ID # [id number]: Final reports with documentation of one or more dose reduction techniques (e.g., Au tomated exposure control, adjustment of the mA and/or kV according to patient size, use of iterative reconstruction technique) 2010 [employer]- All Rights Reserved Reading location - IP/workstation name: [email or web address]
--- NOTE | 2017-10-02 09:47 | RADIOLOGY REPORT (SQ) ---
EXAM DESCRIPTION: CT BIOPSY RENAL; CT NEEDLE PLACEMENT COMPLETED DATE/TIME: 10/02/2017 9:13 am; 10/02/2017 9:12 am REASON FOR STUDY: PROTEINURIA; PROTEINURIA, RENAL BIOPSY R80.9 PROTEINURIA, UNSPECIFIED COMPARISON: CT angio chest 09/18/2017 CT abdomen pelvis 05/01/2017 RADIATION DOSE: 38 mGy. LIMITATIONS: None. PROCEDURE: Procedure was discussed with the patient and the patient agreed to the procedure. Preliminary CT scanning to localize the biopsy site was performed. A site was marked on the right lo wer pole kidney and time out was performed. Procedure was performed using CT fluoroscopy. Total expo sure time: 9.5 S. 54CT fluoroscopic images were obtained and saved to PACS. IV conscious sedation was administered and physician direction by the registered nurse using 2 millig topher of Versed and 75 micrograms of fentanyl. Physiologic monitoring was provided before, during, and after sedation. The total sedation time was 30 minutes. Documentation face to face time, the performing proceduralist, spent monitoring the patient: [place]. After sterile skin prep with ChloraPrep, local lidocaine for skin and deep tissue anesthesia, the rig ht lower pole kidney was localized. A coaxial 18/19 gauge needle was used to obtain 5 cores of tissue from the right lower pole kidney. The biopsy tract was embolized with Gelfoam. No immediate postpr ocedure complications. All CT scanners at this facility use dose modulation, iterative reconstruction, and/or weight based d osing when appropriate to reduce radiation dose to as low as reasonably achievable (ALARA). [facility]: Dose Right [facility]: CareDose [facility]: Dose Right [facility]: Teradose 4D [facility]: Smart judo FINDINGS: There were no immediate complications. Specimen was carried to cytology on sterile saline gauze and submitted to the instructional support services director for processing. Pathology is pending at the time of dict ation. IMPRESSION: CT GUIDED RIGHT KIDNEY CORTICAL BIOPSY. COMMENT: Patient medication list reviewed:Yes- Quality ID# [id number]:Eligible professional attests to docu menting in the medical record they obtained, updated, or reviewed the patient's current medications.. TECHNICAL DOCUMENTATION: JOB ID: [id number] Quality ID #[id number]: Final reports for procedures using fluoroscopy that document radiation exposure mariah rahat, or exposure time and number of fluorographic images (if radiation exposure indices are not avail able) Quality ID # [id number]: Final reports with documentation of one or more dose reduction techniques (e.g., Au tomated exposure control, adjustment of the mA and/or kV according to patient size, use of iterative reconstruction technique) 2010 [employer]- All Rights Reserved Reading location - IP/workstation name: [email or web address]
[2017-10-02 12:19] VITALS: BP 121/85
== END 2017-10-02 11:10 | disposition home or self-care (01) ==
LOC: RAD 05:52
PROVIDERS: ATTEND Internal Medicine Nephrology
DX: N26.9 Renal sclerosis, unspecified (principal); N05.2 Unspecified nephritic syndrome with diffuse membranous glomerulonephritis; N15.8 Other specified renal tubulo-interstitial diseases; R80.9 Proteinuria, unspecified; Z86.718 Personal history of other venous thrombosis and embolism; Z88.5 Allergy status to narcotic agent
CPT/HCPCS: 50200; 36415; 84520; 82565; 85027; 85610; 85730; 88346; 88348 ×2; 88313 ×2; 77012; J2250; J3010; J3490

== ENCOUNTER 2017-10-10 18:29 | Inpatient (IN) | payer BC ==
[2017-10-10] MEDS ORDERED: BENZONATATE 100 MG CAPSULE PO ONE (19:46)
--- NOTE | 2017-10-10 19:48 | ER Document Report ---
ED Medical Screen (RME) - General Chief Complaint: Shortness Of Breath Stated Complaint: SHORTNESS OF BREATH, COUGHING UP BLOOD Time Seen by Provider: 10/10/17 19:35 Notes: RAPID MEDICAL EVALUATION DISCLOSURE I have seen this patient as part of a Rapid Medical Evaluation and, if applicable, placed any initially appropriate orders. The patient will be seen and fully evaluated, including a full history and physical exam, by a provider ( in Main ED or Fast Track) when a room becomes available. 27-year-old male PMH antiphospholipid syndrome PEs DVTs recent ARF here with complaints of coughing up blood shortness of breath and sharp chest pain that started approximately 1 week ago. The day before onset of symptoms, he had a kidney biopsy to evaluate the etiology of his ARF and had been off of his Eliquis 2 days prior to the procedure and 2 days following the procedure. All symptoms started the same day. He has since restarted his Eliquis but the symptoms persist. The symptoms are very similar to his prior PEs and this is what he is worried about. He has no new extremity pain/swelling and states he has this at baseline. EXAM CTAB RRR NOTE CTA chest not immediately ordered due to history of acute renal failure earlier this year TRAVEL OUTSIDE OF THE [place] IN LAST 30 DAYS: No - Related Data Allergies/Adverse Reactions: morphine Allergy (Verified 09/18/17 18:57) Past Medical History - Past Medical History Cardiac Medical History: Reports: Hx DVT - December 2016 and April 2017, Hx Hypertension Denies: Hx Coronary Artery Disease, Hx Heart Attack Pulmonary Medical History: Denies: Hx Asthma, Hx Bronchitis, Hx COPD, Hx Pneumonia Neurological Medical History: Denies: Hx Cerebrovascular Accident, Hx Seizures Renal/ Medical History: Denies: Hx Peritoneal Dialysis Musculoskeltal Medical History: Denies Hx Arthritis Psychiatric Medical History: Denies: Hx Depression Past Surgical History: Reports: Other - IVC filter placement, Bronchosocopy and trans thoracic needle biopsy. - Immunizations Hx Diphtheria, Pertussis, Tetanus Vaccination: No - Unknown last Tetanus. History of Influenza Vaccine for 02/2017 - 07/2017 Season: No Physical Exam - Vital signs Vitals: Temp Pulse Resp BP Pulse Ox 98.1 F 95 18 120/71 97 10/10/17 18:48 10/10/17 18:48 10/10/17 18:48 10/10/17 18:48 10/10/17 18:48 Course - Vital Signs Vital signs: Temp Pulse Resp BP Pulse Ox 98.1 F 95 18 120/71 97 10/10/17 18:48 10/10/17 18:48 10/10/17 18:48 10/10/17 18:48 10/10/17 18:48
--- NOTE | 2017-10-10 20:26 | RADIOLOGY REPORT (SQ) ---
EXAM DESCRIPTION: CHEST 2 VIEWS COMPLETED DATE/TIME: 10/10/2017 8:15 pm REASON FOR STUDY: coughing up blood sob cp COMPARISON: CT scan 09/18/2017 EXAM PARAMETERS: NUMBER OF VIEWS: two views TECHNIQUE: Digital Frontal and Lateral radiographic views of the chest acquired. RADIATION DOSE: NA LIMITATIONS: none FINDINGS: LUNGS AND PLEURA: No opacities, masses or pneumothorax. No pleural effusion. MEDIASTINUM AND HILAR STRUCTURES: Extensive hilar and mediastinal adenopathy. HEART AND VASCULAR STRUCTURES: Heart normal size. No evidence for failure. BONES: No acute findings. HARDWARE: None in the chest. OTHER: No other significant finding. IMPRESSION: Extensive hilar and mediastinal adenopathy. TECHNICAL DOCUMENTATION: JOB ID: [id number] [employer]- All Rights Reserved Reading location - IP/workstation name: [email or web address]
[2017-10-10 21:06] LABS: INTERNATIONAL RATION (INR) 1.03
[2017-10-10 21:07] LABS: PARTIAL THROMBOPLASTIN TIME 33.7 SEC (23.5-35.8)
[2017-10-10 21:09] LABS: D-DIMER 0.42 ug/mL (0.00-0.50)
--- NOTE | 2017-10-10 21:15 | ER Document Report ---
ED General - General Chief Complaint: Shortness Of Breath Stated Complaint: SHORTNESS OF BREATH, COUGHING UP BLOOD Time Seen by Provider: 10/10/17 19:35 TRAVEL OUTSIDE OF THE [place] IN LAST 30 DAYS: No - HPI Notes: 27-year-old male with a history of antiphospholipid syndrome, recurrent venous thromboembolic disease and a recent diagnosis of membranous GN who presents with hemoptysis. Patient states last week he underwent a CT-guided biopsy of his kidneys. He was taken off Eliquis for 2 days prior 1 day after. The morning of the procedure he states he began to develop some intermittent hemoptysis and some poorly described chest discomfort with deep inspiration. States it feels just like it did when he had a pulmonary embolism in the past. Hemoptysis is generally limited in the morning. No severe dyspnea. He is back on Eliquis. No other modifying factors, no other associated symptoms, no other provocative or palliative factors. - Related Data Allergies/Adverse Reactions: morphine Allergy (Verified 09/18/17 18:57) Past Medical History - General Information source: Patient - Social History Smoking Status: Never Smoker Chew tobacco use (# tins/day): No Frequency of alcohol use: None Drug Abuse: None Family History: CAD, Malignancy - MGF with Colon and Thyroid cancers. Patient has suicidal ideation: No Patient has homicidal ideation: No - Past Medical History Cardiac Medical History: Reports: Hx DVT - December 2016 and April 2017, Hx Hypertension Denies: Hx Coronary Artery Disease, Hx Heart Attack Pulmonary Medical History: Denies: Hx Asthma, Hx Bronchitis, Hx COPD, Hx Pneumonia Neurological Medical History: Denies: Hx Cerebrovascular Accident, Hx Seizures Renal/ Medical History: Denies: Hx Peritoneal Dialysis Musculoskeltal Medical History: Denies Hx Arthritis Psychiatric Medical History: Denies: Hx Depression Past Surgical History: Reports: Other - IVC filter placement, Bronchosocopy and trans thoracic needle biopsy. - Immunizations Hx Diphtheria, Pertussis, Tetanus Vaccination: No - Unknown last Tetanus. Review of Systems - Review of Systems Notes: Review of systems as in the history of present illness, otherwise negative. Physical Exam - Vital signs Vitals: Temp Pulse Resp BP Pulse Ox 98.1 F 95 18 120/71 97 10/10/17 18:48 10/10/17 18:48 10/10/17 18:48 10/10/17 18:48 10/10/17 18:48 - Notes Notes: General: Well developed . HEENT: Normocephalic, atraumatic. Pupils equal round reactive to light. No JVD. Chest: No trauma. Respiratory: Good air exchange, normal excursion. Cardiac: Regular rhythm. No murmurs or gallops. Abdomen: Soft, benign. Nondistended. Nontender. Back: No asymmetry or gross abnormality. Motor: Grossly normal power and tone. Neurologic: Alert, nonfocal. Cranial nerves II-12 are intact. Sensation intact. Vascular: Well perfused. Normal peripheral pulses. Skin: No petechiae or purpura. Course - Re-evaluation Re-evalutation: 10/10/17 21:13 27-year-old male with the after mentioned symptoms, patient has a high pretest probability for venous thromboembolic disease. Of note, he was seen by the physician in triage, labs were ordered and pending, chest x-ray is unremarkable. Patient is not safe for d-dimer rule out. At this point, my suspicion for PE is high. I actually had a lengthy discussion with the patient indicated that we could proceed potentially with just continued empiric therapy. He did not have the reported event while on anticoagulation and he is now back on appropriate therapy. I think there is a reasonable and rational explanation for her symptoms. However, he feels strongly that we need to have a more definitive diagnosis especially if he is going to undergo procedures in the future. Given his recent diagnosis of membranous GN and his risk of contrast nephropathy, I am uncomfortable proceeding with CT imaging with IV contrast. We will proceed with V/Q scanning. 10/11/17 01:16 Labs reviewed, CBC chemistries are unremarkable. Patient had a troponin ordered prior to my evaluation, troponin comes back at 0.7. Of note, V/Q was returned as showing no pulmonary embolism. This point etiology the patient's symptoms is unclear. I still think he has a high pretest probability for possible pulmonary embolism. I would consider underlying myocarditis as well. However, the story is less suggestive of this. I think classic acute coronary syndrome is unlikely but still would be a consideration. Patient is at this time pain-free, his ECG is nonischemic. Patient will be admitted to the hospitalist for trending of his troponin continued evaluation and management. X-rays unremarkable except for hilar and mediastinal adenopathy. 12 Lead ECG Analysis A 12 lead ECG is obtained and shows a sinus rhythm, normal QRS, normal QTC. There are nonspecific ST-T changes, no evidence of acute ischemic changes. - Vital Signs Vital signs: Temp Pulse Resp BP Pulse Ox 98.1 F 95 21 H 111/71 96 10/10/17 18:48 10/10/17 18:48 10/10/17 22:01 10/10/17 22:01 10/10/17 22:01 - Laboratory Result Diagrams: 10/10/17 20:46 10/10/17 20:46 Laboratory results interpreted by me: 10/10/17 20:46 Chloride 108 H Discharge - Discharge Clinical Impression: Chest pain Qualifiers: Chest pain type: unspecified Qualified Code(s): R07.9 - Chest pain, unspecified Condition: Serious Disposition: ADMITTED OBSERVATION Admitting Provider: Hospitalist Unit Admitted: Telemetry Referrals: MILLER AUGUSTE FNP [Primary Care Provider] - Follow up as needed
[2017-10-10 21:23] LABS: ABSOLUTE BASOPHILS # (AUTO) 0.1 10^3/uL (0.0-0.2); ABSOLUTE EOSINOPHILS # (AUTO) 0.1 10^3/uL (0.0-0.6); ABSOLUTE LYMPHOCYTES (AUTO) 1.5 10^3/uL (0.5-4.7); ABSOLUTE MONOCYTES (AUTO) 0.4 10^3/uL (0.1-1.4); ABSOLUTE NEUT (AUTO) 4.1 10^3/uL (1.7-8.2); BASOPHILS % (AUTO) 1.6 % (0-2); EOSINOPHILS % (AUTO) 1.9 % (0-6); HEMATOCRIT 46.9 % (37.9-51.0); HEMOGLOBIN 16.1 g/dL (13.5-17.0); LYMPHOCYTES % (AUTO) 23.8 % (13-45); MEAN CORPUSCULAR HGB CONC 34.3 g/dL (32.0-36.0); MEAN CORPUSCULAR VOLUME 85 fl (80-97); MONOCYTES % (AUTO) 6.1 % (3-13); PLATELET COUNT 301 10^3/uL (150-450); RED BLOOD COUNT 5.55 10^6/uL (4.35-5.55); RED CELL DISTRIBUTION WIDTH 13.4 % (11.5-14.0); SEGMENTED NEUTROPHILS % (AUTO) 66.6 % (42-78); TOTAL CELLS COUNTED % (AUTO) 100 %; WHITE BLOOD COUNT 6.1 10^3/uL (4.0-10.5)
[2017-10-10 21:26] LABS: ANION GAP 13 (5-19); BLOOD UREA NITROGEN 15 mg/dL (7-20); CALCIUM 10.1 mg/dL (8.4-10.2); CARBON DIOXIDE 23 mmol/L (22-30); CHLORIDE 108 mmol/L (98-107); GLUCOSE 79 mg/dL (75-110); POTASSIUM 4.2 mmol/L (3.6-5.0); SODIUM 144.1 mmol/L (137-145)
[2017-10-10] MEDS ORDERED: HYDROMORPHONE HCL INJ/PF 2 MG/ML AMPULE IV ONE (22:26)
[2017-10-11] MEDS ORDERED: APIXABAN 5 MG TABLET PO ONE (00:48)
--- NOTE | 2017-10-11 00:57 | RADIOLOGY REPORT (SQ) ---
EXAM DESCRIPTION: NM LUNG VENTILATION PERFUSION CLINICAL HISTORY: 27 years Male, Hemoptysis, hx of PE, recently off anticoagulants, APS, sarcoid, MTHFR gen COMPARISON: CR, same day. CT, September 18, 2017 Radiopharmaceutical dose: 5.3 mCi technetium 99m MAA, 32.1 mCi technetium 99m DTPA Findings: No significant VQ mismatch. No evidence of pulmonary embolus. Matched defects of bilateral central chest consistent with known extensive mediastinal and hilar lymphadenopathy. IMPRESSION: No evidence of pulmonary embolus. .
[2017-10-11] MEDS ORDERED: ONDANSETRON HCL INJ/PF 4 MG/2 ML SDV IV PRN (01:13)
[2017-10-11] MEDS ORDERED: MAG HYDROX/AL HYDROX/SIMETH SUSP 30 ML UDCUP PO PRN (01:13)
[2017-10-11] MEDS ORDERED: ACETAMINOPHEN 325 MG TABLET PO PRN (01:13)
[2017-10-11] MEDS ORDERED: MAGNESIUM HYDROXIDE SUSP 30 ML UDCUP PO PRN (01:13)
[2017-10-11] MEDS ORDERED: IPRATROPIUM/ALBUTEROL 0.5-2.5 MG/3 ML AMPUL NEB PRN (01:13)
[2017-10-11] MEDS ORDERED: APIXABAN 5 MG TABLET ONE (01:28)
[2017-10-11] MEDS ORDERED: METHYLPREDNISOLONE INJ 125 MG/2 ML SDV IV ONE (01:30)
[2017-10-11] MEDS ORDERED: KETOROLAC TROMETHAMINE INJ/PF 30 MG/1 ML SDV IV ONE (01:45)
[2017-10-11] MEDS ORDERED: APIXABAN 5 MG TABLET PO SCH (01:45)
[2017-10-11] MEDS ORDERED: COLCHICINE 0.6 MG TABLET PO ONE (01:45)
[2017-10-11] MEDS ORDERED: TRAZODONE HCL 50 MG TABLET PO ONE (02:00)
[2017-10-11] MEDS ORDERED: METOPROLOL TARTRATE 50 MG TABLET PO ONE (02:00)
[2017-10-11 06:30] LABS: ABSOLUTE BASOPHILS # (AUTO) 0.1 10^3/uL (0.0-0.2); ABSOLUTE LYMPHOCYTES (AUTO) 0.6 10^3/uL (0.5-4.7); ABSOLUTE MONOCYTES (AUTO) 0.1 10^3/uL (0.1-1.4); ABSOLUTE NEUT (AUTO) 5.4 10^3/uL (1.7-8.2); BASOPHILS % (AUTO) 0.9 % (0-2); EOSINOPHILS % (AUTO) 0.6 % (0-6); HEMATOCRIT 44.7 % (37.9-51.0); HEMOGLOBIN 15.3 g/dL (13.5-17.0); LYMPHOCYTES % (AUTO) 9.8 % (13-45); MEAN CORPUSCULAR HEMOGLOBIN 28.8 pg (27.0-33.4); MEAN CORPUSCULAR HGB CONC 34.2 g/dL (32.0-36.0); MEAN CORPUSCULAR VOLUME 84 fl (80-97); MONOCYTES % (AUTO) 1.8 % (3-13); PLATELET COUNT 262 10^3/uL (150-450); RED BLOOD COUNT 5.31 10^6/uL (4.35-5.55); RED CELL DISTRIBUTION WIDTH 13.4 % (11.5-14.0); SEGMENTED NEUTROPHILS % (AUTO) 86.9 % (42-78); TOTAL CELLS COUNTED % (AUTO) 100 %; WHITE BLOOD COUNT 6.2 10^3/uL (4.0-10.5)
--- NOTE | 2017-10-11 06:47 | PDOC H&P ---
History of Present Illness Admission Date/PCP: 10/11/17 01:30 MONIE [place] Patient complains of: Chest pain History of Present Illness: CHI BARONE is a 27 year old male with a complex past medical history of sarcoidosis, antiphospholipid syndrome, 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 Patient recently diagnosed with membranous glomerulonephritis prompting a 3 day hiatus of anticoagulation for renal biopsy but resumed Eliquis 7 days ago. He presents with 1 hour of sharp retrosternal chest pain occurring after coughing which is reproducible by the same. No nausea vomiting palpitations or shortness of breath. In the emergency room he has an extensive workup including negative VQ scan however troponin returns elevated at 0.7 and is referred to the hospitalist for admission. Patient admits previous episode of sharp chest pain associated with coughing with initial pulmonary embolus diagnosis. Past Medical History Cardiac Medical History: Reports: DVT - December 2016 and April 2017, Hypertension Denies: Coronary Artery Disease, Myocardial Infarction Pulmonary Medical History: Denies: Asthma, Bronchitis, Chronic Obstructive Pulmonary Disease (COPD), Pneumonia Neurological Medical History: Denies: Seizures Endocrine Medical History: Reports: Obesity Musculoskeltal Medical History: Denies: Arthritis Psychiatric Medical History: Denies: Depression Hematology: Denies: Anemia Past Surgical History Past Surgical History: Reports: Other - IVC filter placement, Bronchosocopy and trans thoracic needle biopsy. Social History Information Source: Patient Smoking Status: Never Smoker Frequency of Alcohol Use: Rare Hx Recreational Drug Use: No Drugs: None Hx Prescription Drug Abuse: No - Advance Directive Resuscitation Status: Full Code Family History Family History: CAD, Malignancy - MGF with Colon and Thyroid cancers. Parental Family History Reviewed: Yes Children Family History Reviewed: Yes Sibling(s) Family History Reviewed.: Yes Medication/Allergy Home Medications: Apixaban [Eliquis] 5 - 10 mg PO Q12 #50 tablet 05/03/17 Trazodone HCl [Trazodone HCl] 100 mg PO QHS 05/03/17 Losartan Potassium 50 mg PO DAILY 10/02/17 Metoprolol Tartrate 50 mg PO DAILY 10/02/17 Mycophenolate Mofetil [Cellcept] 1,000 mg PO BID 10/02/17 Allergies/Adverse Reactions: morphine Allergy (Verified 09/18/17 18:57) Review of Systems Constitutional: ABSENT: chills, fever(s), headache(s), weight gain, weight loss Eyes: ABSENT: visual disturbances Ears: ABSENT: hearing changes Cardiovascular: ABSENT: chest pain, dyspnea on exertion, edema, orthropnea, palpitations Respiratory: ABSENT: cough, hemoptysis Gastrointestinal: ABSENT: abdominal pain, constipation, diarrhea, hematemesis, hematochezia, nausea, vomiting Genitourinary: ABSENT: dysuria, hematuria Musculoskeletal: ABSENT: joint swelling Integumentary: ABSENT: rash, wounds Neurological: ABSENT: abnormal gait, abnormal speech, confusion, dizziness, focal weakness, syncope Psychiatric: ABSENT: anxiety, depression, homidical ideation, suicidal ideation Endocrine: ABSENT: cold intolerance, heat intolerance, polydipsia, polyuria Hematologic/Lymphatic: ABSENT: easy bleeding, easy bruising Physical Exam Vital Signs: Temp Pulse Resp BP Pulse Ox 97.5 F 65 20 110/69 96 10/11/17 03:54 10/11/17 03:54 10/11/17 03:54 10/11/17 03:54 10/11/17 03:54 Intake & Output 10/09/17 10/10/17 10/11/17 11:59 11:59 11:59 Intake Total 0 Balance 0 Weight 135.8 kg General appearance: PRESENT: no acute distress, morbidly obese, well-developed, well-nourished Head exam: PRESENT: atraumatic, normocephalic Eye exam: PRESENT: conjunctiva pink, EOMI, PERRLA. ABSENT: scleral icterus Ear exam: PRESENT: normal external ear exam Mouth exam: PRESENT: moist, tongue midline Neck exam: ABSENT: carotid bruit, JVD, lymphadenopathy, thyromegaly Respiratory exam: PRESENT: clear to auscultation yossi. ABSENT: rales, rhonchi, wheezes Cardiovascular exam: PRESENT: RRR. ABSENT: diastolic murmur, rubs, systolic murmur Pulses: PRESENT: normal dorsalis pedis pul Vascular exam: PRESENT: normal capillary refill GI/Abdominal exam: PRESENT: normal bowel sounds, soft. ABSENT: distended, guarding, mass, organolmegaly, rebound, tenderness Rectal exam: PRESENT: deferred Extremities exam: PRESENT: full ROM. ABSENT: calf tenderness, clubbing, pedal edema Neurological exam: PRESENT: alert, awake, oriented to person, oriented to place , oriented to time, oriented to situation, CN II-XII grossly intact. ABSENT: motor sensory deficit Psychiatric exam: PRESENT: appropriate affect, normal mood. ABSENT: homicidal ideation, suicidal ideation Skin exam: PRESENT: dry, intact, warm. ABSENT: cyanosis, rash Results Laboratory Results: 10/11/17 05:55 10/11/17 05:55 WBC 6.2 RBC 5.31 Hgb 15.3 Hct 44.7 MCV 84 MCH 28.8 MCHC 34.2 RDW 13.4 Plt Count 262 Seg Neutrophils % 86.9 H Lymphocytes % 9.8 L Monocytes % 1.8 L Eosinophils % 0.6 Basophils % 0.9 Absolute Neutrophils 5.4 Absolute Lymphocytes 0.6 Absolute Monocytes 0.1 Absolute Eosinophils 0.0 Absolute Basophils 0.1 Impressions: Chest X-Ray 10/10/17 19:45 IMPRESSION: Extensive hilar and mediastinal adenopathy. Lung Scan-VQ NM 10/10/17 21:15 IMPRESSION: No evidence of pulmonary embolus. . Assessment & Plan - Diagnosis (1) Atypical chest pain Is this a current diagnosis for this admission?: Yes Plan: Atypical chest pain possible sarcoid carditis versus pericarditis. Symptomatic management, follow-up cardiac enzymes and echocardiogram (2) DVT (deep venous thrombosis) Qualifiers: DVT location: lower extremity Affected thrombotic vein of extremity: iliac Chronicity: acute Laterality: left Qualified Code(s): I82.422 - Acute embolism and thrombosis of left iliac vein Is this a current diagnosis for this admission?: Yes Plan: Continue full dose Eliquis (3) Sarcoidosis Is this a current diagnosis for this admission?: Yes Plan: Continue CellCept and prednisone pending ESR.
[2017-10-11 06:56] LABS: CREATINE KINASE MB 0.73 ng/mL (<4.55)
[2017-10-11 07:08] LABS: TROPONIN I 0.35 ng/mL
--- NOTE | 2017-10-11 07:17 | EKG REPORT ---
SEVERITY:- NORMAL ECG - SINUS RHYTHM : Confirmed by: Wilmer Conley MD 11-Oct-2017 07:17:24
[2017-10-11] MEDS: MYCOPHENOLATE MOFETIL 250 MG CAPSULE PO SCH ×2 (10:56→17:49)
[2017-10-11] MEDS: DOCUSATE SODIUM 100 MG CAPSULE PO SCH ×2 (10:56→17:48)
[2017-10-11] MEDS: APIXABAN 5 MG TABLET PO SCH ×2 (11:00→22:06)
--- NOTE | 2017-10-11 12:45 | Progress Note ---
Provider Note Provider Note: Mr. Painting is 27 years old male patient admitted this morning for cough productive of bloodstained sputum and chest pain. Patient has history of sarcoidosis and antiphospholipid syndrome due to her age he developed acute PE and DVT. Patient is status post IVC filter placement and he has been on Eliquis. I accepted the patient takes Zoloft primary attending.
[2017-10-11 12:49] LABS: CREATINE KINASE MB 0.59 ng/mL (<4.55); TROPONIN I 0.152 ng/mL
--- NOTE | 2017-10-11 18:11 | XCELERA REPORT ---
[address] [address] Transthoracic Echocardiogram Report Name: CHI BARONE Age: 27 yrs Gender: Male : 1990 Patient Status: Inpatient Patient Location: [address] [place] [address] Study Date: 10/11/2017 10:09 AM Height: 72 in Weight: 298 lb BSA: 2.5 m2 Procedure: A complete two-dimensional transthoracic echocardiogram was performed (2D, M-mode, spectral and color flow Doppler). The study was technically adequate with some images being suboptimal in quality. Reason For Study: carditis Ordering Physician: KEYLA WOLFE Performed By: Manjeet Mao Interpretation Summary The left ventricular ejection fraction is normal. There is borderline concentric left ventricular hypertrophy. The left ventricle is grossly normal size. Doppler measurements suggest normal left ventricular diastolic function No regional wall motion abnormalities noted. The right ventricle is mildly dilated. The right ventricular systolic function is normal. The left atrial size is normal. The right atrium is mildly dilated. There is no mitral regurgitation noted. There is no mitral valve stenosis. There is no aortic valve stenosis No aortic regurgitation is present. There is a trace or physiologic amount of tricuspid regurgitation Tricuspid regurgitation jet envelope not well defined to measure RV systolic pressure accurately. The aortic root is not well visualized but is probably normal size. The inferior vena cava appeared normal and decreased > 50% with respiration (RAP 5-10 mmHg) There is no pericardial effusion. MMode/2D Measurements & Calculations RVDd: 3.5 cm LVIDd: 4.9 cm FS: 50.2 % Ao root diam: 3.5 cm IVSd: 0.98 cm LVIDs: 2.5 cm EDV(Teich): 114.3 ml LVPWd: 1.1 cm ESV(Teich): 21.3 ml Ao root area: 9.8 cm2 EF(Teich): 81.3 % LA dimension: 3.4 cm Doppler Measurements & Calculations MV E max chari: MV P1/2t max chari: Ao V2 max: LV V1 max P.8 cm/sec 89.5 cm/sec 124.9 cm/sec 4.8 mmHg MV A max chari: MV P1/2t: 74.6 msec Ao max PG: LV V1 max: 70.6 cm/sec 6.2 mmHg 109.5 cm/sec MV E/A: 1.3 MVA(P1/2t): 3.0 cm2 MV dec slope: 351.7 cm/sec2 MV dec time: 0.22 sec PA V2 max: TR max chari: 88.8 cm/sec 235.3 cm/sec PA max PG: TR max P.1 mmHg 3.2 mmHg Left Ventricle The left ventricle is grossly normal size. There is borderline concentric left ventricular hypertrophy. The left ventricular ejection fraction is normal. Doppler measurements suggest normal left ventricular diastolic function. No regional wall motion abnormalities noted. Right Ventricle The right ventricle is mildly dilated. There is normal right ventricular wall thickness. The right ventricular systolic function is normal. Atria The right atrium is mildly dilated. The left atrial size is normal. Interarterial septum not well visualized and not well dopplered. Cannot comment on ASD/PFO presence. Mitral Valve The mitral valve is grossly normal. There is no mitral valve stenosis. There is no mitral regurgitation noted. Aortic Valve The aortic valve is not well visualized secondary to technical limitations. There is no aortic valve stenosis. No aortic regurgitation is present. Tricuspid Valve The tricuspid valve is not well visualized, but is grossly normal. There is no tricuspid stenosis. There is a trace or physiologic amount of tricuspid regurgitation. Tricuspid regurgitation jet envelope not well defined to measure RV systolic pressure accurately. Pulmonic Valve The pulmonic valve is not well visualized. Great Vessels The aortic root is not well visualized but is probably normal size. The inferior vena cava appeared normal and decreased > 50% with respiration (RAP 5-10 mmHg). Effusions There is no pericardial effusion. : KEYLA WOLFE > Zhao Almaraz
[2017-10-11 18:20] LABS: CREATINE KINASE MB 0.55 ng/mL (<4.55); TROPONIN I 0.133 ng/mL
--- NOTE | 2017-10-11 20:36 | PDOC CONSULTATION ---
Consultation Consult Date: 10/11/17 Attending physician:: RAIN PHILLIPS Consult reason:: Positive troponin I History of Present Illness Admission Date/PCP: 10/11/17 01:30 [facility]IE [place] Patient complains of: Hemoptysis and chest pain History of Present Illness: CHI BARONE is a 27 year old male Past Medical History Cardiac Medical History: Reports: DVT - December 2016 and April 2017, Hypertension Denies: Coronary Artery Disease, Myocardial Infarction Pulmonary Medical History: Denies: Asthma, Bronchitis, Chronic Obstructive Pulmonary Disease (COPD), Pneumonia Neurological Medical History: Denies: Seizures Endocrine Medical History: Reports: Obesity Musculoskeltal Medical History: Denies: Arthritis Psychiatric Medical History: Denies: Depression Hematology: Denies: Anemia Past Surgical History Past Surgical History: Reports: Other - IVC filter placement, Bronchosocopy and trans thoracic needle biopsy. Social History Information Source: Patient Smoking Status: Never Smoker Frequency of Alcohol Use: Rare Hx Recreational Drug Use: No Drugs: None Hx Prescription Drug Abuse: No - Advance Directive Resuscitation Status: Full Code Surrogate healthcare decision maker:: Patient's mother is the surrogate decision-maker. Family History Family History: CAD, Malignancy - MGF with Colon and Thyroid cancers. Parental Family History Reviewed: Yes Children Family History Reviewed: Yes Sibling(s) Family History Reviewed.: Yes Medication/Allergy Home Medications: Trazodone HCl [Trazodone HCl] 150 mg PO QHS 05/03/17 Losartan Potassium 50 mg PO DAILY 10/02/17 Mycophenolate Mofetil [Cellcept] 1,000 mg PO BID 10/02/17 Apixaban [Eliquis 5 mg Tablet] 5 mg PO BID 10/11/17 Metoprolol Succinate [Toprol Xl 25 mg Tab.sr] 50 mg PO QAM 10/11/17 Allergies/Adverse Reactions: morphine Allergy (Verified 10/11/17 09:44) Review of Systems Review of Systems: Please see history of present illness and past medical history as wall. Constitutional: No fever or chills reported. Head : No recent chronic headaches, recent head injury. Eyes: No recent eye pain, diplopia, redness, discharge, acute visual changes. Ears: No recent chronic ear pain, acute hearing loss, ear discharge. Oral cavity: No recent ulcerations, bleeding, oral cavity discomfort. Neck: No recent acute neck pain reported. Hematologic: No recent easy bruising or bleeding. Lymphatic: No recent lymph node enlargement reported. Cardiovascular system review: See history of present illness. Respiratory system review: DVT and blood clots in the lungs reported. Mild Shortness of breath on exertion Gastrointestinal system review: Negative for any recent acute hematemesis, melena. Genitourinary system review: No recent acute or chronic hematuria, flank pain, UTI etc. reported. Skin system review: Negative for any recent abnormal bruising, no rash, no pruritus reported. Neurologic: No prior history of strokes, mini strokes, seizure disorder. Psychologic: No history of major psychosis or major depression reported. Musculoskeletal: Minor aches and pains reported. No acute joint swelling reported. Endocrine: No recent polyuria, polydipsia, recent heat or cold intolerance. Physical Exam Vital Signs: Temp Pulse Resp BP Pulse Ox 97.4 F 85 17 133/76 H 99 10/11/17 16:55 10/11/17 16:55 10/11/17 16:55 10/11/17 16:55 10/11/17 16:55 Intake & Output 10/10/17 10/11/17 10/12/17 06:59 06:59 06:59 Intake Total 0 5 Balance 0 5 Weight 135.8 kg 135.8 kg Exam: GENERAL: well-nourished and in no acute distress. Alert and oriented x3 HEAD: Atraumatic, normocephalic. EYES: Pupils equal round and reactive to light, extraocular movements intact, sclera anicteric, conjunctiva are normal. ENT: TMs normal, nares patent, oropharynx clear without exudates. Moist mucous membranes. No oral ulcerations or bleeding gums noted NECK: supple without lymphadenopathy. Trachea is central. No cervical or axillary lymphadenopathy noted. Carotids are 2+, JVD WNL LUNGS: Respiration seems nonlabored, no significant accessory muscle action noted. Breath sounds clear to auscultation bilaterally and equal noted. No wheezes rales or rhonchi noted. No significant dullness noted on percussion. CHEST: Palpation of the chest wall shows no significant chest wall tenderness. HEART: [place] [employer], No PSH, 1/6 ANIKA aortic area, 1/6 hough systolic murmur mitral area, no rubs, no gallops. ABDOMEN: Soft, no significant tenderness appreciated, normoactive bowel sounds. No guarding, no rebound. No rigidity noted . No masses appreciated. EXTREMITIES: Pedal pulses are 1-2+, no calf tenderness noted. No clubbing or cyanosis. Trace pedal edema noted NEUROLOGICAL: Focused neurological exam showed no significant neurologic deficit. Normal speech, no focal weakness appreciated. PSYCH: Normal mood, normal affect. Judgment and insight within normal limits. SKIN: No significant ecchymosis, skin is noted to be warm. MUSCULOSKELETAL EXAM: No significant acute joint swelling noted. Results Laboratory Results: 10/11/17 05:55 10/11/17 05:55 WBC 6.2 RBC 5.31 Hgb 15.3 Hct 44.7 MCV 84 MCH 28.8 MCHC 34.2 RDW 13.4 Plt Count 262 Seg Neutrophils % 86.9 H Lymphocytes % 9.8 L Monocytes % 1.8 L Eosinophils % 0.6 Basophils % 0.9 Absolute Neutrophils 5.4 Absolute Lymphocytes 0.6 Absolute Monocytes 0.1 Absolute Eosinophils 0.0 Absolute Basophils 0.1 10/11/17 10/11/17 10/11/17 05:55 05:55 11:24 Creatine Kinase 135 113 CK-MB (CK-2) 0.73 Troponin I 0.350 10/11/17 10/11/17 10/11/17 11:24 17:40 17:40 Creatine Kinase 90 CK-MB (CK-2) 0.59 0.55 Troponin I 0.152 0.133 EKG Comments: Sinus rhythm, no acute ST-T changes are noted. Impressions: Chest X-Ray 10/10/17 19:45 IMPRESSION: Extensive hilar and mediastinal adenopathy. [facility] 10/10/17 21:15 IMPRESSION: No evidence of pulmonary embolus. . Assessment & Plan - Diagnosis (1) Chest pain Qualifiers: Chest pain type: unspecified Qualified Code(s): R07.9 - Chest pain, unspecified Is this a current diagnosis for this admission?: Yes (2) Elevated troponin I level Is this a current diagnosis for this admission?: Yes (3) Hemoptysis Is this a current diagnosis for this admission?: Yes (4) Obesity Is this a current diagnosis for this admission?: Yes (5) Antiphospholipid syndrome Is this a current diagnosis for this admission?: Yes (6) Sarcoidosis Is this a current diagnosis for this admission?: Yes (7) Sleep disorder breathing Is this a current diagnosis for this admission?: Yes - Notes Notes: Chest pain: Patient describes chest pain as pleuritic. VQ scan is reported to be negative. Patient started back on Eliquis. He was off Eliquis a few days. Elevated troponin I level: Exact etiology not clear but doubt cardiac etiology. Will repeat an EKG. Elevated troponin I most likely related to severe coughing spell which can increase intrathoracic pressure tremendously and can cause cardiac enzyme release. Hemoptysis: Possibly related to pulmonary pathology. May consider pulmonary consultation. Patient does describe history of sarcoidosis. Antiphospholipid syndrome: Patient describes predisposition to blood clot formation. He also describes another gene mutation which causes his blood vessels to thin out. Sarcoidosis: Currently is stable. Recommend pulmonary evaluation. Sleep disordered breathing: This is considered likely based on patient's body habitus. It will be worthwhile to schedule patient for a sleep study. This can be done as an outpatient. 2D echo results were reviewed with the patient and family. This was noted to be satisfactory with some RV enlargement but otherwise no other significant findings. - Time Time Spent: 30 to 50 Minutes - CODE STATUS was discussed, patient remains full code. Surrogate decision-maker patient's mother. Multiple medical problems were addressed. More than 50% of the time spent coordinating care, discussing management plans with involved caregivers. Management plans discussed with involved personnels. Medical decision making was of moderate to high complexity , patient's has multiple comorbidities. Medications reviewed and adjusted accordingly: Yes
[2017-10-11] MEDS: TRAZODONE HCL 50 MG TABLET PO SCH (22:06)
[2017-10-11] MEDS: KETOROLAC TROMETHAMINE INJ/PF 30 MG/1 ML SDV IV PRN (22:11)
[2017-10-12 06:16] LABS: ABSOLUTE LYMPHOCYTES (AUTO) 1.3 10^3/uL (0.5-4.7); ABSOLUTE MONOCYTES (AUTO) 0.5 10^3/uL (0.1-1.4); ABSOLUTE NEUT (AUTO) 7.9 10^3/uL (1.7-8.2); BASOPHILS % (AUTO) 0.1 % (0-2); EOSINOPHILS % (AUTO) 0.2 % (0-6); HEMATOCRIT 41.8 % (37.9-51.0); HEMOGLOBIN 14.3 g/dL (13.5-17.0); LYMPHOCYTES % (AUTO) 13.1 % (13-45); MEAN CORPUSCULAR HEMOGLOBIN 28.9 pg (27.0-33.4); MEAN CORPUSCULAR HGB CONC 34.1 g/dL (32.0-36.0); MEAN CORPUSCULAR VOLUME 85 fl (80-97); MONOCYTES % (AUTO) 5.6 % (3-13); PLATELET COUNT 257 10^3/uL (150-450); RED BLOOD COUNT 4.93 10^6/uL (4.35-5.55); RED CELL DISTRIBUTION WIDTH 13.3 % (11.5-14.0); TOTAL CELLS COUNTED % (AUTO) 100 %; WHITE BLOOD COUNT 9.8 10^3/uL (4.0-10.5)
[2017-10-12] MEDS: MYCOPHENOLATE MOFETIL 250 MG CAPSULE PO SCH ×2 (10:03→18:06)
[2017-10-12] MEDS: METOPROLOL TARTRATE 50 MG TABLET PO SCH (10:04)
[2017-10-12] MEDS: APIXABAN 5 MG TABLET PO SCH ×2 (10:05→22:32)
[2017-10-12] MEDS: DOCUSATE SODIUM 100 MG CAPSULE PO SCH ×3 (10:05→19:39)
--- NOTE | 2017-10-12 11:49 | PDOC PROGRESS REPORT ---
Subjective Subjective:: He is 27 years old male patient admitted with chest pain and hemoptysis. Patient has underlying sarcoidosis and antiphospholipid syndrome. His VQ scan and echocardiogram reportedly normal. Dr. Minor considered feasible is a possibility of sarcoidosis involving her and he recommended steroid and consult for pipelines laborer. Reason For Visit: CP SARCOID APS Physical Exam Vital Signs: Temp Pulse Resp BP Pulse Ox 97.3 F 66 16 134/86 H 97 10/12/17 07:46 10/12/17 09:06 10/12/17 09:06 10/12/17 07:46 10/12/17 09:06 Intake & Output 10/11/17 10/12/17 10/13/17 06:59 06:59 06:59 Intake Total 0 401 Output Total 1 Balance 0 400 Weight 135.8 kg 137.2 kg General appearance: PRESENT: no acute distress Head exam: PRESENT: atraumatic, normocephalic Ear exam: PRESENT: normal external ear exam Respiratory exam: PRESENT: clear to auscultation yossi. ABSENT: rales, rhonchi, wheezes Cardiovascular exam: PRESENT: RRR. ABSENT: diastolic murmur, rubs, systolic murmur GI/Abdominal exam: PRESENT: normal bowel sounds, soft. ABSENT: distended, guarding, mass, organolmegaly, rebound, tenderness Neurological exam: PRESENT: alert, awake, oriented to person, oriented to place , oriented to time, oriented to situation, CN II-XII grossly intact. ABSENT: motor sensory deficit Psychiatric exam: PRESENT: appropriate affect, normal mood. ABSENT: homicidal ideation, suicidal ideation Results Laboratory Results: 10/12/17 05:52 10/12/17 10/12/17 05:52 05:52 WBC 9.8 RBC 4.93 Hgb 14.3 Hct 41.8 MCV 85 MCH 28.9 MCHC 34.1 RDW 13.3 Plt Count 257 Seg Neutrophils % 81.0 H Lymphocytes % 13.1 Monocytes % 5.6 Eosinophils % 0.2 Basophils % 0.1 Absolute Neutrophils 7.9 Absolute Lymphocytes 1.3 Absolute Monocytes 0.5 Absolute Eosinophils 0.0 Absolute Basophils 0.0 C-Reactive Protein 5.3 10/11/17 10/11/17 10/11/17 05:55 05:55 11:24 Creatine Kinase 135 113 CK-MB (CK-2) 0.73 Troponin I 0.350 10/11/17 10/11/17 10/11/17 11:24 17:40 17:40 Creatine Kinase 90 CK-MB (CK-2) 0.59 0.55 Troponin I 0.152 0.133 Impressions: Chest X-Ray 10/10/17 19:45 IMPRESSION: Extensive hilar and mediastinal adenopathy. Lung Scan-[facility] 10/10/17 21:15 IMPRESSION: No evidence of pulmonary embolus. . Assessment & Plan - Diagnosis (1) Chest pain Qualifiers: Chest pain type: unspecified Qualified Code(s): R07.9 - Chest pain, unspecified Is this a current diagnosis for this admission?: Yes Plan: Chest pain has resolved (2) Hemoptysis Is this a current diagnosis for this admission?: Yes Plan: May be due to flare of his sarcoidosis. I will started him on Solu-Medrol and Dr. horner consulted (3) Sarcoidosis Is this a current diagnosis for this admission?: Yes Plan: As a #2 - Time Time Spent with patient: 25-34 minutes
[2017-10-12 11:53] LABS: ANION GAP 14 (5-19); BLOOD UREA NITROGEN 22 mg/dL (7-20); CALCIUM 9.8 mg/dL (8.4-10.2); CARBON DIOXIDE 20 mmol/L (22-30); CHLORIDE 107 mmol/L (98-107); GLUCOSE 95 mg/dL (75-110); POTASSIUM 4.3 mmol/L (3.6-5.0); SODIUM 141.3 mmol/L (137-145)
[2017-10-12] MEDS: METHYLPREDNISOLONE INJ 40 MG/1 ML SDV IV SCH ×2 (13:30→18:06)
--- NOTE | 2017-10-12 16:31 | EKG REPORT ---
SEVERITY:- BORDERLINE ECG - SINUS RHYTHM NONSPECIFIC ST-T CHANGES- INFERIOR LEADS : Confirmed by: Wilmer Conley MD 12-Oct-2017 16:30:20
--- NOTE | 2017-10-12 21:30 | PROGRESS NOTE E ---
Progress Note NAME: CHI BARONE : 1990 AGE: 27Y DATE: 10/12/2017 ROOM: 404 SUBJECTIVE: Note that the patient's chart has been reviewed including Dr. Almaraz's consultation note. The patient still has some shortness of breath. The patient denies any PND, orthopnea. He has chest pain only when he coughs and, hence, clearly musculoskeletal. There is no leg edema. The patient states there is no further hemoptysis but when he coughs he brings up whitish sputum. The patient is afebrile. At present the patient has no pleuritic chest pain. He has chest wall pain due to coughing. He denied any palpitations. There are no TIA or CVA symptoms. OBJECTIVE: GENERAL: On examination the patient is morbidly obese, at present in no acute distress. VITAL SIGNS: He is afebrile with a temperature of 97.7 degrees Fahrenheit. His pulse is 61 beats per minute, blood pressure is 125/79, respirations are 16 per minute, O2 saturations are 98% on room air. HEENT: Head is atraumatic, normocephalic. Eyes: Pupils are equal, round and regular, reactive to light and accommodation. Extraocular movements are normal. There is no conjunctival pallor. There is no scleral icterus. Ears: Tympanic membranes are intact, external auditory canals are clear. Note there is no deviated nasal septum, there is no inflammation of the nasal mucous membrane. Mouth: Mucous membranes of the mouth are moist, tongue is moist. There are no ulcers, there is no bleeding from the gums. Throat: There is no redness of the oropharynx. There are no exudates. SKIN: There are no skin rashes. There is no petechiae or ecchymosis. NECK: Supple. There is no JVD. There is no lymphadenopathy. There is no goiter. Carotids are equal. There is no bruit. Trachea is central. LUNGS: Show a few dry crackles bilaterally. There is no rhonchi or wheezing. There are no rales of CHF. HEART: S1, S2 is heard. There is no S3 gallop. There is no S4 gallop. There is a systolic murmur in the left sternal border and the apex without radiation. There is no rub. ABDOMEN: Soft, obese, nontender. There is no hepatosplenomegaly. Bowel sounds are well heard. There are no tender areas or masses. There is no rebound, guarding, or rigidity. EXTREMITIES: Femorals are deep. Femorals are without any bruits. Femorals are diminished. Leg pulses are felt. There is no pedal edema. There is no cyanosis or clubbing. There is no DVT or cellulitis. There is no calf tenderness. CENTRAL NERVOUS SYSTEM: The patient is conscious, awake, alert and oriented x3 with no focal deficits. PSYCHIATRIC: The patient's judgment and insight are intact. His affect is normal. MEDICATIONS: Note that the patient's medications have been reviewed. DIAGNOSTICS: The patient's EKG shows sinus rhythm, no significant changes from admission day's EKG. There is no acute ischemia or pattern of myocardial infarction seen. The patient's white count is 9800, hemoglobin is 14.3, hematocrit is 41.8, and his platelet count is 257,000. The patient's sed rate is 17. The patient's c-reactive protein is 5.3. His troponin I has trended down yesterday to 0.133. The patient's sodium is 141.3, potassium 4.3, chloride is 107, CO2 is 20. The patient's BUN is 22, creatinine is 1.24, GFR is greater than 60. His CO2 is 95, calcium is 9.8. IMPRESSION: 1. HEMOPTYSIS AND PLEURITIC CHEST PAIN, AT PRESENT RESOLVED. Note the hemoptysis and cough may be a manifestation of sarcoidosis. Note at present the patient has chest wall pain due to coughing. 2. ELEVATED TROPONIN I LEVEL. Highly suspicious of cardiac involvement in sarcoidosis. 3. SARCOIDOSIS, MOST LIKELY ACTIVE. Since the sed rate is not very high the active sarcoid is not in a very severe stage. 4. ANTIPHOSPHOLIPID SYNDROME. Note that the patient is tolerating Eliquis. 5. MORBID OBESITY. 6. GENE MUTATION DISORDER. RECOMMENDATIONS: Note since the c-reactive protein is not very high this is used to exclude tuberculosis. There are a majority of patients who had c-reactive protein in active sarcoidosis including cardiac involvement with normal CRP levels. Also the sed rate being not very high, although slightly elevated, suggests that the systemic sarcoidosis is not/pulmonary sarcoidosis/cardiac involvement in sarcoidosis is not very severe. In view of this would recommend strongly to place the patient on steroids and follow the patient's troponin I which may be an indicator of the success of the steroid therapy. Also would recommend getting *------* levels. Would recommend strongly a pulmonary consultation. Discussed this with the hospitalist taking care of the patient and also discussed with the patient and the patient's family. TIME SPENT: Note 35 minutes spent on this patient with more than 50% of the time spent on direct patient care. In view of the multiple problems that the patient currently has with the etiology of the troponin I being a little difficult to really be certain, decision making is of high complexity. Note in view of the antiphospholipid syndrome would continue the patient on Eliquis. 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 Mild tubulointerstitial scarring. Note that the patient has had several immunological tests but would recommend getting a c-reactive protein. We will also repeat the patient's troponin I in the a.m. CODE STATUS: Note that the patient is a full code. His mother is his surrogate healthcare decision maker. DICTATING PHYSICIAN: FINA CAROLINA M.D. [id number] PHY#: [id number] ID: [id number] JOB#: [id number] ACCT: [id number] cc: >
[2017-10-12] MEDS: TRAZODONE HCL 50 MG TABLET PO SCH (22:32)
[2017-10-12] MEDS: KETOROLAC TROMETHAMINE INJ/PF 30 MG/1 ML SDV IV PRN (22:32)
[2017-10-13] MEDS: METHYLPREDNISOLONE INJ 40 MG/1 ML SDV IV SCH ×5 (00:08→23:33)
[2017-10-13 06:14] LABS: ANION GAP 14 (5-19); BLOOD UREA NITROGEN 21 mg/dL (7-20); CALCIUM 9.8 mg/dL (8.4-10.2); CARBON DIOXIDE 19 mmol/L (22-30); CHLORIDE 108 mmol/L (98-107); GLUCOSE 131 mg/dL (75-110); POTASSIUM 4.9 mmol/L (3.6-5.0); SODIUM 141.1 mmol/L (137-145)
[2017-10-13] MEDS: DOCUSATE SODIUM 100 MG CAPSULE PO SCH ×2 (09:40→18:40)
[2017-10-13] MEDS: METOPROLOL TARTRATE 50 MG TABLET PO SCH (09:40)
[2017-10-13] MEDS: APIXABAN 5 MG TABLET PO SCH ×2 (09:41→23:15)
[2017-10-13] MEDS: MYCOPHENOLATE MOFETIL 250 MG CAPSULE PO SCH ×2 (09:41→18:39)
--- NOTE | 2017-10-13 11:11 | PDOC PROGRESS REPORT ---
Subjective Progress Note for:: 10/13/17 Subjective:: Seen patient resting in bed comfortably is not impairing her renal form of distress. He reports his his hemoptysis less frequent and has chest pain whenever he forcefully cough. His kidney function has improved remarkably today his creatinine is 0.97. Reason For Visit: CHEST PAIN,SARCOIDOSIS,APS Physical Exam Vital Signs: Temp Pulse Resp BP Pulse Ox 98.1 F 68 14 141/88 H 99 10/13/17 07:40 10/13/17 08:17 10/13/17 08:17 10/13/17 07:40 10/13/17 08:17 Intake & Output 10/12/17 10/13/17 10/14/17 06:59 06:59 06:59 Intake Total 401 961 Output Total 1 Balance 400 961 Weight 137.2 kg 137.2 kg General appearance: PRESENT: no acute distress, well-developed, well-nourished Head exam: PRESENT: atraumatic, normocephalic Eye exam: PRESENT: conjunctiva pink, EOMI, PERRLA. ABSENT: scleral icterus Respiratory exam: PRESENT: clear to auscultation yossi. ABSENT: rales, rhonchi, wheezes Cardiovascular exam: PRESENT: RRR. ABSENT: diastolic murmur, rubs, systolic murmur GI/Abdominal exam: PRESENT: normal bowel sounds, soft. ABSENT: distended, guarding, mass, organolmegaly, rebound, tenderness Neurological exam: PRESENT: alert, awake, oriented to person, oriented to place , oriented to time, oriented to situation, CN II-XII grossly intact. ABSENT: motor sensory deficit Psychiatric exam: PRESENT: appropriate affect, normal mood. ABSENT: homicidal ideation, suicidal ideation Results Laboratory Results: 10/12/17 05:52 10/13/17 05:11 10/12/17 10/12/17 10/13/17 05:52 05:52 05:11 Sodium 141.3 141.1 Potassium 4.3 4.9 Chloride 107 108 H Carbon Dioxide 20 L 19 L Anion Gap 14 14 BUN 22 H 21 H Creatinine 1.24 0.97 Est GFR ( Amer) > 60 > 60 Est GFR (Non-Af Amer) > 60 > 60 Glucose 95 131 H Calcium 9.8 9.8 C-Reactive Protein 5.3 0510/11/17 10/11/17 05:55 05:55 11:24 Creatine Kinase 135 113 CK-MB (CK-2) 0.73 Troponin I 0.350 10/11/17 10/11/17 10/11/17 11:24 17:40 17:40 Creatine Kinase 90 CK-MB (CK-2) 0.59 0.55 Troponin I 0.152 0.133 10/13/17 05:11 Creatine Kinase CK-MB (CK-2) Troponin I 0.045 Impressions: Chest X-Ray 10/10/17 19:45 IMPRESSION: Extensive hilar and mediastinal adenopathy. Lung Scan-[facility] 10/10/17 21:15 IMPRESSION: No evidence of pulmonary embolus. . Assessment & Plan - Diagnosis (1) Chest pain Qualifiers: Chest pain type: unspecified Qualified Code(s): R07.9 - Chest pain, unspecified Is this a current diagnosis for this admission?: Yes Plan: Chest pain has resolved. It is more of musculoskeletal related to coughing. (2) Hemoptysis Is this a current diagnosis for this admission?: Yes Plan: May be due to flare of his sarcoidosis. Patient has been started on Solu- Medrol. (3) Sarcoidosis Is this a current diagnosis for this admission?: Yes Plan: As a #2 (4) BK (acute kidney injury) Is this a current diagnosis for this admission?: Yes Plan: Has resolved - Time Time Spent with patient: 25-34 minutes
--- NOTE | 2017-10-13 12:50 | PROGRESS NOTE E ---
Progress Note NAME: CHI BARONE : 1990 AGE: 27Y DATE: 10/13/2017 ROOM: 404 SUBJECTIVE: Note that the patient states that his cough is slightly better. He still is coughing, but there is no hemoptysis and the is bringing up scanty white sputum. He has chest pain only when he has a coughing bout. There is no chest pain at rest. There is no PND, orthopnea. He claims that his shortness of breath is neither worse nor better. His troponin I has trended down further. He denies any palpitations. There are no arrhythmias seen on the monitor after review of the monitor. There is no leg edema. There is no syncope or near syncope. MEDICATIONS: His medications have been reviewed. The patient is on steroids. OBJECTIVE: GENERAL: On examination the patient is morbidly obese, in no acute distress. VITAL SIGNS: He is afebrile with a temperature of 98.1 degrees Fahrenheit. His pulse is 68 beats per minute, blood pressure is 141/88, respirations are 14 per minute, O2 saturations are 99% on room air. HEENT: Head is atraumatic, normocephalic. Eyes: Pupils are equal, round and regular, reactive to light and accommodation. Extraocular movements are normal. There is no conjunctival pallor. There is no scleral icterus. ENT is negative. NECK: Supple. There is no JVD. There is no lymphadenopathy. There is no goiter. Carotids are equal. There is no bruit. Trachea is central. LUNGS: Show a few dry crackles bilaterally. There is no rhonchi or wheezing. HEART: S1, S2 is heard. There is no S3 gallop. There is no S4 gallop. There is a systolic murmur in the left sternal border and the apex. There is no rub. ABDOMEN: Soft, obese, nontender. There is no hepatosplenomegaly. Bowel sounds are well heard. EXTREMITIES: Femorals are deep. There are no femoral bruits. Femorals are diminished. Leg pulses are well felt. There is no pedal edema. There is no cyanosis or clubbing. There is no DVT or cellulitis. There is no calf tenderness. CENTRAL NERVOUS SYSTEM: The patient is conscious, awake, alert and oriented x3 with no focal deficits. PSYCHIATRIC: The patient's judgment and insight are intact. His affect is normal. DIAGNOSTICS: The patient's sodium is 141.9, potassium 4.9, chloride is 108, CO2 is 19. The patient's BUN is 21, creatinine is 0.97, GFR is greater than 60. His glucose is 131. His calcium is 9.8. His troponin I has trended down to 0.045. IMPRESSION: 1. HEMOPTYSIS AND PLEURITIC CHEST PAIN, RESOLVED. There are manifestations of sarcoidosis. 2. ELEVATED TROPONIN I WHICH HAS TRENDED DOWN. Highly suspicious of cardiac involvement of sarcoidosis. 3. SARCOIDOSIS, MOST LIKELY ACTIVE. Definitely there is probably involvement. 4. ANTIPHOSPHOLIPID SYNDROME. No evidence of *------* clotting. The patient is on Eliquis. 5. MORBID OBESITY. 6. GENE MUTATION DISORDER. RECOMMENDATIONS: Continue with steroids and taper the steroids. Continue on his current medications. We will await pulmonary consult. Discussed with the patient. Medications have been reviewed. Medical decision making is of moderate complexity. TIME SPENT: Note 39 minutes spent on this patient with more than 50% of the time spent on direct patient care. We will follow with you. DICTATING PHYSICIAN: FINA CAROLINA M.D. [id number] PHY#: [id number] ID: [id number] JOB#: [id number] ACCT: [id number] cc: >
[2017-10-13] MEDS: TRAZODONE HCL 50 MG TABLET PO SCH (23:15)
[2017-10-13] MEDS: KETOROLAC TROMETHAMINE INJ/PF 30 MG/1 ML SDV IV PRN (23:34)
[2017-10-14] MEDS: METHYLPREDNISOLONE INJ 40 MG/1 ML SDV IV SCH (06:10)
[2017-10-14] MEDS ORDERED: METOPROLOL SUCCINATE 50 MG TAB.SR.24H PO SCH (10:00)
[2017-10-14] MEDS: APIXABAN 5 MG TABLET PO SCH (10:41)
[2017-10-14] MEDS: MYCOPHENOLATE MOFETIL 250 MG CAPSULE PO SCH (10:43)
[2017-10-14] MEDS: DOCUSATE SODIUM 100 MG CAPSULE PO SCH (10:43)
--- NOTE | 2017-10-14 11:16 | PDOC DISCHARGE SUMMARY ---
General - Admit/Disc Date/PCP Admission Date/Primary Care Provider: 10/11/17 01:30 MONIE CLEVELAND Discharge Date: 10/14/17 - Discharge Diagnosis (1) Chest pain Is this a current diagnosis for this admission?: Yes (2) Hemoptysis Is this a current diagnosis for this admission?: Yes (3) Sarcoidosis Is this a current diagnosis for this admission?: Yes (4) BK (acute kidney injury) Is this a current diagnosis for this admission?: Yes - Additional Information Resuscitation Status: Full Code Discharge Diet: As Tolerated Discharge Activity: Activity As Tolerated Prescriptions: Prednisone 40 mg PO CONTINUOUS PRN 5 Days tablet PRN Reason: Home Medications: Trazodone HCl 150 mg PO QHS 05/03/17 Losartan Potassium 50 mg PO DAILY 10/02/17 Mycophenolate Mofetil [Cellcept] 1,000 mg PO BID 10/02/17 Apixaban [Eliquis 5 mg Tablet] 5 mg PO BID 10/11/17 Metoprolol Succinate [Toprol Xl 25 mg Tab.sr] 50 mg PO QAM 10/11/17 Prednisone 40 mg PO CONTINUOUS PRN 5 Days tablet 10/14/17 History of Present Illness History of Present Illness: CHI BARONE is a 27 year old male with a complex past medical history of sarcoidosis, antiphospholipid syndrome, 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 Patient recently diagnosed with membranous glomerulonephritis prompting a 3 day hiatus of anticoagulation for renal biopsy but resumed Eliquis 7 days ago. He presents with 1 hour of sharp retrosternal chest pain occurring after coughing which is reproducible by the same. No nausea vomiting palpitations or shortness of breath. In the emergency room he has an extensive workup including negative VQ scan however troponin returns elevated at 0.7 and is referred to the hospitalist for admission. Patient admits previous episode of sharp chest pain associated with coughing with initial pulmonary embolus diagnosis. Hospital Course Hospital Course: Patient presents with chest pain and hemoptysis. Since he has history of recurrent DVT and PE secondary to antiphospholipid antibody syndrome, the possibility of VTE considered and patient subjected to V/Q scan returned negative for pulmonary embolism. CT of the chest could not be done because of his acute kidney injury. We consulted to Dr. Minor machinery dismantler since patient has elevated troponin. He evaluated the patient and he attributed the bump in troponin due to possible sarcoid involvement of the heart. For his hemoptysis we will consider the possibility of a flare of pulmonary sarcoidosis and he was started on Solu-Medrol and the hemoptysis has subsided at the time of discharge. Today on the day of discharge I found the patient sitting up in bed, awake alert and oriented he does not have any new complaints. His vital signs are within normal limits and his kidney function is normalized and it is actually at his baseline now. I will send him home with prednisone 40 mg p.o. daily for 5 days and follow-up with his primary care physician and his primary contractor general building. Physical Exam Vital Signs: Temp Pulse Resp BP Pulse Ox 98.4 F 61 16 133/78 H 100 10/14/17 07:00 10/14/17 07:00 10/14/17 07:00 10/14/17 07:00 10/14/17 07:00 Intake & Output 10/13/17 10/14/17 10/15/17 06:59 06:59 06:59 Intake Total 961 2706 Balance 961 2706 Weight 137.2 kg 137.5 kg General appearance: PRESENT: no acute distress, well-developed, well-nourished Head exam: PRESENT: atraumatic, normocephalic Neck exam: ABSENT: carotid bruit, JVD, lymphadenopathy, thyromegaly Respiratory exam: PRESENT: clear to auscultation yossi. ABSENT: rales, rhonchi, wheezes Cardiovascular exam: PRESENT: RRR. ABSENT: diastolic murmur, rubs, systolic murmur Pulses: PRESENT: normal dorsalis pedis pul GI/Abdominal exam: PRESENT: normal bowel sounds, soft. ABSENT: distended, guarding, mass, organolmegaly, rebound, tenderness Neurological exam: PRESENT: alert, awake, oriented to person, oriented to place , oriented to time, oriented to situation, CN II-XII grossly intact. ABSENT: motor sensory deficit Psychiatric exam: PRESENT: appropriate affect, normal mood. ABSENT: homicidal ideation, suicidal ideation Results Laboratory Results: 10/12/17 05:52 10/13/17 05:11 10/11/17 10/11/17 10/11/17 05:55 05:55 11:24 Creatine Kinase 135 113 CK-MB (CK-2) 0.73 Troponin I 0.350 10/11/17 10/11/17 10/11/17 11:24 17:40 17:40 Creatine Kinase 90 CK-MB (CK-2) 0.59 0.55 Troponin I 0.152 0.133 10/13/17 05:11 Creatine Kinase CK-MB (CK-2) Troponin I 0.045 Impressions: Chest X-Ray 10/10/17 19:45 IMPRESSION: Extensive hilar and mediastinal adenopathy. Lung Scan-[facility] 10/10/17 21:15 IMPRESSION: No evidence of pulmonary embolus. . Qualifiers - * PATIENT BEING DISCHARGED WITH ANY OF THE FOLLOWING DIAGNOSIS: No
[2017-10-14 11:51] VITALS: BP 133/78
--- NOTE | 2017-10-14 20:05 | PROGRESS NOTE E ---
Progress Note NAME: CHI BARONE : 1990 AGE: 27Y DATE: 10/14/2017 ROOM: 404 SUBJECTIVE: Note that the patient states his shortness of breath has resolved with the current steroid therapy. He also states that his cough is very minimal and occasional and mild, and is nonproductive. There is no further hemoptysis. There is no chest pain on coughing at present since the cough is only mild. There are no angina symptoms. There are no arrhythmias seen on the monitor. There is no PND, orthopnea, or leg edema. There is no wheezing. There are no TIA or CVA symptoms. OBJECTIVE: GENERAL: On examination the patient is morbidly obese, in no acute distress. He is well-groomed. VITAL SIGNS: He is afebrile with a temperature of 98.1 degrees Fahrenheit, pulse is 84 beats per minute, blood pressure 149/87, respirations are 16 per minute, O2 saturations are 98% on room air. HEENT: Head is atraumatic, normocephalic. Eyes: Pupils are equal, round and regular, reactive to light and accommodation. Extraocular movements are normal. There is no conjunctival pallor. There is no scleral icterus. ENT is negative. NECK: Supple. There is no JVD. There is no lymphadenopathy. There is no goiter. Carotids are equal. There is no bruit. Trachea is central. LUNGS: Show a few dry crackles bilaterally. There is no rhonchi or wheezing. There are no rales of CHF. There is no chest wall tenderness. HEART: S1, S2 is heard. There is no S3 gallop. There is no S4 gallop. There is a systolic murmur in the left sternal border and the apex. There is no rub. ABDOMEN: Soft, obese, nontender. There is no hepatosplenomegaly. Bowel sounds are well heard. EXTREMITIES: Femorals are deep. There are no femoral bruits. Femorals are diminished. Leg pulses are well felt. There is no pedal edema. There is no cyanosis or clubbing. There is no DVT or cellulitis. There is no calf tenderness. CENTRAL NERVOUS SYSTEM: The patient is conscious, awake, alert and oriented x3 with no focal deficits. PSYCHIATRIC: The patient's judgment and insight are intact. His affect is normal. IMPRESSION: 1. HEMOPTYSIS AND PLEURITIC CHEST PAIN, RESOLVED. These are manifestations of sarcoidosis. 2. ELEVATED TROPONIN I WHICH HAS TRENDED DOWN. Suspicious of cardiac involvement of sarcoidosis. 3. SARCOIDOSIS. Definitely there is pulmonary involvement and also cardiac involvement. 4. ANTIPHOSPHOLIPID SYNDROME. No evidence of clotting at present. The patient is on Eliquis. 5. MORBID OBESITY. 6. GENE MUTATION DISORDER. RECOMMENDATIONS: Continue with steroids and taper the steroids. Note that the patient was a long acting metoprolol, hence, I have changed this to a longer acting metoprolol. Note also the patient states at times he gets palpitations and in view of the patient's sarcoidosis and the propensity for sudden we will get a 30 day event monitor. Also we will discuss with the patient's farm operator and electrical instrumentation technician, Dr. Murillo and Dr. Woods to see if they agree to get a cardiac MRI on the patient to see if there is cardiac involvement of sarcoidosis, although this may be difficult. Note that the patient's *------* on the echocardiogram may be secondary to sarcoidosis, which is a nonspecific finding. Note that the patient is being discharged. The patient has been given my cell phone number to call me if there are any problems. Note the patient's medications have been reviewed and adjusted. Medical decision making is of moderate complexity. The patient will call me if any problem. He will follow up with his farm operator and his electrical instrumentation technician. TIME SPENT: Note 35 minutes spent on this patient with more than 50% of the time spent on direct patient care. We will sign off the case. DICTATING PHYSICIAN: FINA CAROLINA M.D. [id number] [place]#: [id number] ID: [id number] JOB#: [id number] ACCT: [id number] cc: >
[2017-10-18] MEDS ORDERED: APIXABAN 5 MG TABLET PO SCH ×2 (10:00)
== END 2017-10-14 12:45 | disposition home or self-care (01) | DRG 197 ==
LOC: ER 18:29 → EH 10-11 01:30 → OBSVTOIN 10-11 01:30 → 4N 10-11 03:31
PROVIDERS: ADMIT Internal Medicine; ATTEND Internal Medicine
DX: D86.0 Sarcoidosis of lung (principal); R04.2 Hemoptysis; D68.61 Antiphospholipid syndrome; N17.9 Acute kidney failure, unspecified; Z68.41 Body mass index [BMI] 40.0-44.9, adult; N05.9 Unspecified nephritic syndrome with unspecified morphologic changes; R74.8 Abnormal levels of other serum enzymes; I10 Essential (primary) hypertension; E66.9 Obesity, unspecified; Z82.49 Family history of ischemic heart disease and other diseases of the circulatory system; Z86.718 Personal history of other venous thrombosis and embolism; Z86.711 Personal history of pulmonary embolism; Z79.01 Long term (current) use of anticoagulants; Z80.8 Family history of malignant neoplasm of other organs or systems; Z88.6 Allergy status to analgesic agent; Q99.9 Chromosomal abnormality, unspecified; Z95.828 Presence of other vascular implants and grafts
CPT/HCPCS: 36415; 71046; 78582; 80048; 82164; 82550; 82553; 83880; 84484; 85025; 85379; 85610; 85652; 85730; 86140; 93005; 93010; 93306; 96374; 96375; 99285; A9540; A9567; J1170; J1885; J2920; J2930; J7517; Q9969

== ENCOUNTER → 2017-10-15 | Outpatient (CLI) | payer BC ==
[2017-10-15 13:25] LABS: ABSOLUTE BASOPHILS # (AUTO) 0.1 10^3/uL (0.0-0.2); ABSOLUTE LYMPHOCYTES (AUTO) 0.7 10^3/uL (0.5-4.7); ABSOLUTE MONOCYTES (AUTO) 0.7 10^3/uL (0.1-1.4); ABSOLUTE NEUT (AUTO) 11.3 10^3/uL (1.7-8.2); BASOPHILS % (AUTO) 0.4 % (0-2); HEMATOCRIT 47.9 % (37.9-51.0); HEMOGLOBIN 16.1 g/dL (13.5-17.0); LYMPHOCYTES % (AUTO) 5.7 % (13-45); MEAN CORPUSCULAR HEMOGLOBIN 28.7 pg (27.0-33.4); MEAN CORPUSCULAR HGB CONC 33.6 g/dL (32.0-36.0); MEAN CORPUSCULAR VOLUME 86 fl (80-97); MONOCYTES % (AUTO) 5.3 % (3-13); PLATELET COUNT 281 10^3/uL (150-450); RED CELL DISTRIBUTION WIDTH 13.4 % (11.5-14.0); SEGMENTED NEUTROPHILS % (AUTO) 88.6 % (42-78); TOTAL CELLS COUNTED % (AUTO) 100 %; WHITE BLOOD COUNT 12.8 10^3/uL (4.0-10.5)
[2017-10-15 13:32] LABS: APPEARANCE,URINE CLEAR; BILIRUBIN,URINE NEGATIVE (NEGATIVE); COLOR,URINE YELLOW; GLUCOSE, URINE NEGATIVE (NEGATIVE); KETONES,URINE NEGATIVE (NEGATIVE); LEUKOCYTE ESTERASE,URINE NEGATIVE (NEGATIVE); NITRITE,URINE NEGATIVE (NEGATIVE); PROTEIN,URINE 100 mg/dL (NEGATIVE); UROBILINOGEN,URINE NEGATIVE mg/dL (<2.0)
[2017-10-15 13:46] LABS: BLOOD UREA NITROGEN 21 mg/dL (7-20); CALCIUM 10.1 mg/dL (8.4-10.2); CARBON DIOXIDE 24 mmol/L (22-30); GLUCOSE 95 mg/dL (75-110); POTASSIUM 4.3 mmol/L (3.6-5.0); SODIUM 144.5 mmol/L (137-145)
[2017-10-15 13:53] LABS: ANION GAP 15 (5-19); CHLORIDE 106 mmol/L (98-107)
[2017-10-16 11:39] LABS: CREATININE URINE 134.1 mg/dL (Not Estab.)
[2017-10-16 12:39] LABS: ANTICHROMATIN AB <0.2 AI (0.0-0.9); CENTROMERE B AB <0.2 AI (0.0-0.9); JO-1 ANTIBODY (ANACOMP) <0.2 AI (0.0-0.9); RNP AB <0.2 AI (0.0-0.9); SCLERODERMA-70 ANTIBODIES <0.2 AI (0.0-0.9); SJOGREN'S ANTI-SS-B AB <0.2 AI (0.0-0.9); SJOGREN'S SS-A ANTIBODY <0.2 AI (0.0-0.9); SMITH AB ANA <0.2 AI (0.0-0.9)
[2017-10-16 13:03] LABS: DNA DOUBLE STRAND ANTIBODY ANA 9 IU/mL (0-9)
[2017-10-17 15:19] LABS: HISTONE ANTIBODY 0.6 Units (0.0-0.9)
== END ==
LOC: OD 11:58
PROVIDERS: ATTEND Internal Medicine Nephrology
DX: D68.61 Antiphospholipid syndrome (principal); R80.9 Proteinuria, unspecified; R31.29 Other microscopic hematuria; D86.9 Sarcoidosis, unspecified
CPT/HCPCS: 36415; 80048; 81001; 82043; 82570; 85025; 86225; 86235; 86255; 86430

== ENCOUNTER → 2017-12-28 | Outpatient (CLI) | payer BC ==
[2017-12-28 12:35] LABS: ANION GAP 16 (5-19); BLOOD UREA NITROGEN 20 mg/dL (7-20); CALCIUM 9.9 mg/dL (8.4-10.2); CARBON DIOXIDE 18 mmol/L (22-30); CHLORIDE 108 mmol/L (98-107); GLUCOSE 79 mg/dL (75-110); POTASSIUM 4.5 mmol/L (3.6-5.0); SODIUM 141.7 mmol/L (137-145)
[2017-12-30 02:36] LABS: CREATININE URINE 219.8 mg/dL (Not Estab.); MICROALBUMIN URINE 176.9 ug/mL (Not Estab.)
== END ==
LOC: OD 11:01
PROVIDERS: ATTEND Internal Medicine Nephrology
DX: N02.2 Recurrent and persistent hematuria with diffuse membranous glomerulonephritis (principal); I10 Essential (primary) hypertension
CPT/HCPCS: 36415; 80048; 82043; 82570

== ENCOUNTER → 2018-04-14 | Outpatient (CLI) | payer BC ==
[2018-04-14 09:55] LABS: APPEARANCE,URINE CLEAR; BILIRUBIN,URINE NEGATIVE (NEGATIVE); COLOR,URINE YELLOW; GLUCOSE, URINE NEGATIVE (NEGATIVE); KETONES,URINE NEGATIVE (NEGATIVE); LEUKOCYTE ESTERASE,URINE NEGATIVE (NEGATIVE); NITRITE,URINE NEGATIVE (NEGATIVE); PROTEIN,URINE NEGATIVE (NEGATIVE); URINE SPECIFIC GRAVITY 1.021; UROBILINOGEN,URINE NEGATIVE mg/dL (<2.0)
[2018-04-14 10:07] LABS: ANION GAP 12 (5-19); BLOOD UREA NITROGEN 16 mg/dL (7-20); CALCIUM 9.8 mg/dL (8.4-10.2); CARBON DIOXIDE 24 mmol/L (22-30); CHLORIDE 106 mmol/L (98-107); GLUCOSE 89 mg/dL (75-110); POTASSIUM 4.4 mmol/L (3.6-5.0); SODIUM 141.8 mmol/L (137-145)
[2018-04-15 11:40] LABS: CREATININE URINE 202.1 mg/dL (Not Estab.); MICROALBUMIN URINE 55.8 ug/mL (Not Estab.)
== END ==
LOC: OD 08:46
PROVIDERS: ATTEND Internal Medicine Nephrology
DX: N02.2 Recurrent and persistent hematuria with diffuse membranous glomerulonephritis (principal); N28.9 Disorder of kidney and ureter, unspecified; I10 Essential (primary) hypertension
CPT/HCPCS: 36415; 80048; 81001; 82043; 82570

== ENCOUNTER 2018-04-24 23:58 | Emergency (ER) | payer BC ==
--- NOTE | 2018-04-25 01:05 | ER Document Report ---
ED General - General Mode of Arrival: Ambulatory Information source: Patient TRAVEL OUTSIDE OF THE [place] IN LAST 30 DAYS: No - General Chief Complaint: Post Surgical Pain Stated Complaint: ARM SWELLING Time Seen by Provider: 04/25/18 00:43 Notes: 27-year-old male with antiphospholipid syndrome and sarcoid that presents today with complaints of right upper extremity swelling. Patient had a cardiac MRI/ MRA along with a cardiac catheterization today at [facility]. Both arms were used for the catheterization. Patient states he was held for "1 hour or 2" after the catheterization to check for swelling as he is on eloquis.Patient states he left [place] around 1830 this evening with no swelling. Patient states when he got home tonight he noticed swelling and bruising to the RUE. Patient denies any chest pain or shortness of breath. Patient denies any numbness or tingling to his fingers or hand. (CHI SANCHEZ) - Related Data Allergies/Adverse Reactions: morphine Allergy (Verified 10/11/17 09:44) Past Medical History - General Information source: Patient - Social History Smoking Status: Never Smoker Cigarette use (# per day): No Frequency of alcohol use: None Drug Abuse: None Family History: CAD, Malignancy - MGF with Colon and Thyroid cancers. - Past Medical History Cardiac Medical History: Reports: Hx DVT - December 2016 and April 2017, Hx Hypertension, Other - Antiphospholipid disorder Past Surgical History: Reports: Hx Cardiac Catheterization - 04/25/2018, Other - IVC filter placement, Bronchosocopy and trans thoracic needle biopsy. - Immunizations Hx Diphtheria, Pertussis, Tetanus Vaccination: No - Unknown last Tetanus. - Medical History Notes: Sarcoid (CHI SANCHEZ) Review of Systems - Review of Systems Constitutional: No symptoms reported EENT: No symptoms reported Cardiovascular: denies: Chest pain Respiratory: denies: Short of breath Gastrointestinal: No symptoms reported Genitourinary: No symptoms reported Male Genitourinary: No symptoms reported Musculoskeletal: See HPI, Other - RUE swelling Skin: No symptoms reported Hematologic/Lymphatic: No symptoms reported Neurological/Psychological: No symptoms reported -: Yes All other systems reviewed and negative Physical Exam - Vital signs Vitals: Temp Pulse Resp BP Pulse Ox 97.5 F 93 18 150/108 H 99 04/25/18 00:09 04/25/18 00:09 04/25/18 00:09 04/25/18 00:09 04/25/18 00:09 - Notes Notes: PHYSICAL EXAM GENERAL: Alert, interacts well. No acute distress. HEAD: Normocephalic, atraumatic. EYES: Pupils equal, round, and reactive to light. Extraocular movements intact. ENT: Oral mucosa moist, tongue midline. NECK: Full range of motion. Supple. Trachea midline. LUNGS: Clear to auscultation bilaterally, no wheezes, rales, or rhonchi. No respiratory distress. HEART: Regular rate and rhythm. No murmurs, gallops, or rubs. Capillary refill less than 2 seconds. ABDOMEN: Soft, non-tender. Non-distended. Bowel sounds present in all 4 quadrants. No guarding, rigidity, or rebound. EXTREMITIES: Moves all 4 extremities spontaneously. Radial and ulnar pulses 2/4 bilaterally. No cyanosis. Right forearm and bicep are soft. There is ecchymosis over the medial aspect of the right distal upper arm which is slightly more firm to palpation than the surrounding areas but the area is not hard. There is no crepitus. Didier's test normal on the right wrist. NEUROLOGICAL: Alert and oriented x3. Normal speech. PSYCH: Normal affect, normal mood. SKIN: Warm and dry. (CHI SANCHEZ) Course - Re-evaluation Re-evalutation: 04/25/18 02:01 Patient was well perfused, no evidence of compartment syndrome, no evidence of arterial injury. Didier's test is normal, spoke with Dr. Morales from [facility] who advised performing the Didier's test initially. Agrees with discharged home so long as he appears well perfused. Patient is aware of the restrictions of no heavy lifting, will return should his swelling worsen, should his forearm or upper arm but, hard or develop any numbness or tingling or if his hand should become cold. Discharged home. (PATRICIA SILVA) - Vital Signs Vital signs: Temp Pulse Resp BP Pulse Ox 97.5 F 77 16 118/54 L 96 04/25/18 00:09 04/25/18 02:35 04/25/18 02:35 04/25/18 02:35 04/25/18 02:35 Discharge - Discharge Clinical Impression: S/P cardiac catheterization, ecchymosis after cardiac catherization Condition: Stable Disposition: HOME, SELF-CARE Additional Instructions: You may use ice packs 15 minutes out of every hour on your arm for the next 24 hours, you should then switch to warm compresses 15 minutes out of every hour on your arm. Please return for significantly increased swelling, any numbness or tingling in your hand, coolness or paleness to your hand or a firm area where the catheterization was performed. Referrals: MARTHA RAZO MD [ACTIVE STAFF] - Follow up as needed SANJAY GEORGE MD [NO LOCAL MD] - Follow up as needed Scribe Attestation: 04/25/18 03:29 I personally performed the services described in the documentation, reviewed and edited the documentation which was dictated to the scribe in my presence, and it accurately records my words and actions. (PATRICIA SILVA) Scribe Documentation - Scribe Written by Scribe:: Munir Draper, 04/25/2018 0104 acting as scribe for :: Jacky
[2018-04-25 02:43] VITALS: BP 118/54
== END 2018-04-25 02:43 | disposition home or self-care (01) ==
LOC: ER 23:58
DX: I97.630 Postprocedural hematoma of a circulatory system organ or structure following a cardiac catheterization (principal); Y84.0 Cardiac catheterization as the cause of abnormal reaction of the patient, or of later complication, without mention of misadventure at the time of the procedure; Z88.6 Allergy status to analgesic agent; I10 Essential (primary) hypertension; Z86.718 Personal history of other venous thrombosis and embolism
CPT/HCPCS: 99283

== ENCOUNTER → 2018-08-04 | Outpatient (CLI) | payer BC ==
[2018-08-04 18:01] LABS: ANION GAP 13 (5-19); BLOOD UREA NITROGEN 17 mg/dL (7-20); CALCIUM 10.5 mg/dL (8.4-10.2); CARBON DIOXIDE 21 mmol/L (22-30); CHLORIDE 106 mmol/L (98-107); GLUCOSE 81 mg/dL (75-110); POTASSIUM 4.7 mmol/L (3.6-5.0); SODIUM 140.1 mmol/L (137-145)
== END ==
LOC: OD 16:54
PROVIDERS: ATTEND Internal Medicine Nephrology
DX: N04.2 Nephrotic syndrome with diffuse membranous glomerulonephritis (principal); R80.9 Proteinuria, unspecified
CPT/HCPCS: 36415; 80048

== ENCOUNTER 2018-10-01 06:16 | Emergency (ER) | payer BC ==
--- NOTE | 2018-10-01 07:19 | ER Document Report ---
Entered by SUNITA LEE SCRIBE 10/01/18 0656 Acting as scribe for:SHRUTI PAYNE MD ED General - General Chief Complaint: Flank Pain Stated Complaint: ABDOMINAL PAIN Time Seen by Provider: 10/01/18 06:38 Primary Care Provider: MARTHA RAZO MD [Primary Care Provider] - Follow up as needed Mode of Arrival: Ambulatory Information source: Patient Notes: Patient is a 28 year old male with antiphospholipid syndrome, sarcoid and histo ry of DVTs (on Eliquis) presents to the emergency department complaining of left sided abdominal pain and left flank pain onset this morning. Patient states he had intermittent upper abdominal abdominal pain 1 week ago but states he developed severe left sided abdominal pain that radiates into his left flank this morning. He also complains of urinary burning and frequency. He does report a history of kidney stones. He denies any hematuria, constipation or diarrhea. TRAVEL OUTSIDE OF THE [place] IN LAST 30 DAYS: No - Related Data Allergies/Adverse Reactions: morphine Allergy (Verified 10/01/18 08:51) Past Medical History - General Information source: Patient - Social History Smoking Status: Unknown if Ever Smoked Family History: CAD, Malignancy - MGF with Colon and Thyroid cancers. Patient has suicidal ideation: No Patient has homicidal ideation: No - Medical History Notes: Antiphospholipid syndrome - Past Medical History Cardiac Medical History: Reports: Hx DVT - December 2016 and April 2017, Hx Hypertension Past Surgical History: Reports: Hx Cardiac Catheterization - 04/25/2018, Other - IVC filter placement, Bronchosocopy and trans thoracic needle biopsy. - Immunizations Hx Diphtheria, Pertussis, Tetanus Vaccination: No - Unknown last Tetanus. Review of Systems - Review of Systems Constitutional: No symptoms reported EENT: No symptoms reported Cardiovascular: No symptoms reported Respiratory: No symptoms reported Gastrointestinal: See HPI, Abdominal pain Genitourinary: See HPI, Burning, Frequency, Flank pain Male Genitourinary: No symptoms reported Musculoskeletal: No symptoms reported Skin: No symptoms reported Hematologic/Lymphatic: No symptoms reported Neurological/Psychological: No symptoms reported -: Yes All other systems reviewed and negative Physical Exam - Vital signs Vitals: Temp Pulse Resp BP Pulse Ox 98.1 F 86 16 140/84 H 98 10/01/18 06:18 10/01/18 06:18 10/01/18 06:18 10/01/18 06:18 10/01/18 06:18 - Notes Notes: GENERAL: Alert, interacts well. No acute distress. HEAD: Normocephalic, atraumatic. EYES: Pupils equal, round, and reactive to light. Extraocular movements intact. ENT: Oral mucosa moist, tongue midline. NECK: Full range of motion. Supple. Trachea midline. LUNGS: Clear to auscultation bilaterally, no wheezes, rales, or rhonchi. No respiratory distress. HEART: Regular rate and rhythm. No murmurs, gallops, or rubs. ABDOMEN: Soft, obese, non-tender. Non-distended. Bowel sounds present in all 4 quadrants. No guarding, rigidity, or rebound. EXTREMITIES: Moves all 4 extremities spontaneously. No edema, radial and dorsalis pedis pulses 2/4 bilaterally. No cyanosis. NEUROLOGICAL: Alert and oriented x3. Normal speech. PSYCH: Normal affect, normal mood. SKIN: Warm, dry, normal turgor. No rashes or lesions noted. BACK: Tender to palpate the bilateral lumbar and paraspinal muscles. Course - Vital Signs Vital signs: Temp Pulse Resp BP Pulse Ox 98.1 F 86 16 140/84 H 98 10/01/18 06:18 10/01/18 06:18 10/01/18 06:18 10/01/18 06:18 10/01/18 06:18 - Laboratory Result Diagrams: 10/01/18 07:34 10/01/18 07:34 Laboratory results interpreted by me: 10/01/18 10/01/18 10/01/18 07:34 07:34 07:34 RDW 14.4 H BUN 25 H Creatinine 1.63 H Est GFR (Non-Af Amer) 51 L Calcium 10.3 H Urine Protein 100 H Urine Blood LARGE H - Diagnostic Test Radiology reviewed: Image reviewed, Reports reviewed - CT scan shows a punctate stone at the left UVJ without hydronephrosis or hydroureter. Discharge - Discharge Clinical Impression: Calculus of distal left ureter, Renal colic on left side Condition: Stable Disposition: HOME, SELF-CARE Additional Instructions: Kidney Stone: You are passing a kidney stone. These stones are usually due to increased calcium or uric acid concentrations in your urine. Stones within the kidney itself are not painful. The pain occurs as the stone leaves the kidney to pass down the long tube, called the ureter, leading to the bladder. If the stone is small, it will usually pass by itself. Most patients can pass the stone at home. You will usually receive medications for pain, nausea or vomiting, and sometimes a medication to assist in passing the kidney stone. However, if the pain is very severe or if vomiting prevents you from taking oral pain medications, you may need to return for further treatment. Drink three or four quarts of fluids per day. You will be given pain medication (if needed) and urine strainers. Strain all your urine to see if the stone passes. If your doctor has asked you to bring the stone in for analysis, return with the stone once it has passed. Return if pain or vomiting become severe, if you develop a high fever, if you are unable to pass your urine, or if other unusual symptoms occur. Drink plenty of fluids throughout the day in the evening. Strain your urine. Take the pain medication if needed. Take a stool softener so you do not become constipated. Follow-up with your doctor or a local urologist if not improving. RETURN TO THE EMERGENCY ROOM IF ANY NEW OR WORSENING SYMPTOMS. Prescriptions: Oxycodone HCl/Acetaminophen [Percocet 5-325 mg Tablet] 1 tab PO ASDIR PRN #15 tablet PRN Reason: Forms: Return to Work Referrals: MARTHA RAZO MD [Primary Care Provider] - Follow up as needed Scribe Attestation: 10/01/18 07:41 I personally performed the services described in the documentation, reviewed and edited the documentation which was dictated to the scribe in my presence, and it accurately records my words and actions. I personally performed the services described in the documentation, reviewed and edited the documentation which was dictated to the scribe in my presence, and it accurately records my words and actions.
--- NOTE | 2018-10-01 07:24 | RADIOLOGY REPORT (SQ) ---
EXAM DESCRIPTION: ACUTE ABDOMEN SERIES COMPLETED DATE/TIME: 10/01/2018 7:06 am REASON FOR STUDY: Abdominal pain COMPARISON: None. NUMBER OF VIEWS: Three views. TECHNIQUE: Frontal chest, supine abdomen and upright/decubitus abdomen radiographic images acquired. LIMITATIONS: None. FINDINGS: CHEST: Lungs clear of infiltrates. FREE AIR: None. No abnormal gas collections. BOWEL GAS PATTERN: Nonobstructive pattern. No dilated loops or air fluid levels. CALCIFICATIONS: No suspicious calcifications. HARDWARE: None in the abdomen. SOFT TISSUES: No gross mass or suggestion of organomegaly. BONES: No acute fracture. No worrisome bone lesions. OTHER: No other significant finding. IMPRESSION: NO RADIOGRAPHIC EVIDENCE FOR ACUTE ABDOMINAL DISEASE. TECHNICAL DOCUMENTATION: JOB ID: [id number] [employer]- All Rights Reserved Reading location - IP/workstation name: [email or web address]
[2018-10-01] MEDS ORDERED: ONDANSETRON HCL INJ/PF 4 MG/2 ML SDV IV ONE (07:38)
[2018-10-01] MEDS ORDERED: NORMAL SALINE 1000 ML 1,000 ML IV ONE (07:39)
[2018-10-01 07:50] LABS: ABSOLUTE BASOPHILS # (AUTO) 0.1 10^3/uL (0.0-0.2); ABSOLUTE EOSINOPHILS # (AUTO) 0.1 10^3/uL (0.0-0.6); ABSOLUTE LYMPHOCYTES (AUTO) 0.9 10^3/uL (0.5-4.7); ABSOLUTE MONOCYTES (AUTO) 0.5 10^3/uL (0.1-1.4); ABSOLUTE NEUT (AUTO) 3.8 10^3/uL (1.7-8.2); EOSINOPHILS % (AUTO) 1.7 % (0-6); HEMATOCRIT 46.6 % (37.9-51.0); HEMOGLOBIN 16.1 g/dL (13.5-17.0); LYMPHOCYTES % (AUTO) 17.6 % (13-45); MEAN CORPUSCULAR HGB CONC 34.5 g/dL (32.0-36.0); MEAN CORPUSCULAR VOLUME 87 fl (80-97); MONOCYTES % (AUTO) 8.9 % (3-13); PLATELET COUNT 189 10^3/uL (150-450); RED BLOOD COUNT 5.36 10^6/uL (4.35-5.55); RED CELL DISTRIBUTION WIDTH 14.4 % (11.5-14.0); SEGMENTED NEUTROPHILS % (AUTO) 70.8 % (42-78); TOTAL CELLS COUNTED % (AUTO) 100 %; WHITE BLOOD COUNT 5.3 10^3/uL (4.0-10.5)
[2018-10-01 08:00] LABS: INTERNATIONAL RATION (INR) 0.97; PROTHROMBIN TIME 13.4 SEC (11.4-15.4)
[2018-10-01 08:06] LABS: APPEARANCE,URINE CLOUDY; BILIRUBIN,URINE NEGATIVE (NEGATIVE); COLOR,URINE AMBER; GLUCOSE, URINE NEGATIVE (NEGATIVE); KETONES,URINE NEGATIVE (NEGATIVE); LEUKOCYTE ESTERASE,URINE NEGATIVE (NEGATIVE); NITRITE,URINE NEGATIVE (NEGATIVE); PROTEIN,URINE 100 mg/dL (NEGATIVE); URINE SPECIFIC GRAVITY 1.027; UROBILINOGEN,URINE NEGATIVE mg/dL (<2.0)
[2018-10-01 08:07] LABS: ALANINE AMINOTRANSFERASE 48 U/L (21-72); ALBUMIN 4.7 g/dL (3.5-5.0); ALKALINE PHOSPHATASE 67 U/L (38-126); ANION GAP 12 (5-19); ASPARTATE AMINO TRANSFERASE 33 U/L (17-59); BILIRUBIN,DIRECT 0.4 mg/dL (0.0-0.4); BILIRUBIN,TOTAL 0.6 mg/dL (0.2-1.3); BLOOD UREA NITROGEN 25 mg/dL (7-20); CALCIUM 10.3 mg/dL (8.4-10.2); CARBON DIOXIDE 23 mmol/L (22-30); CHLORIDE 106 mmol/L (98-107); GLUCOSE 96 mg/dL (75-110); SODIUM 140.7 mmol/L (137-145); TOTAL PROTEIN 7.3 g/dL (6.3-8.2)
[2018-10-01 08:13] LABS: D-DIMER < 0.27 ug/mL (0.00-0.50)
--- NOTE | 2018-10-01 08:57 | RADIOLOGY REPORT (SQ) ---
EXAM DESCRIPTION: CT ABD/PELVIS NO ORAL OR IV COMPLETED DATE/TIME: 05/01/2017 10/01/2018 8:38 am REASON FOR STUDY: Hematuria with left flank pain COMPARISON: None. TECHNIQUE: CT scan of the abdomen and pelvis performed without intravenous or oral contrast. Images reviewed with lung, soft tissue, and bone windows. Reconstructed coronal and sagittal MPR images revi ewed. All images stored on PACS. All CT scanners at this facility use dose modulation, iterative reconstruction, and/or weight based d osing when appropriate to reduce radiation dose to as low as reasonably achievable (ALARA). [facility]: Dose Right [facility]: CareDose [facility]: Dose Right [facility]: Teradose 4D [facility]: [employer] RADIATION DOSE: CT Rad equipment meets quality standard of care and radiation dose reduction techniq ues were employed. CTDIvol: 18.8 mGy. DLP: 1171 mGy-cm.mGy. LIMITATIONS: None. FINDINGS: LOWER CHEST: Partially evaluated centrilobular and tree-in-bud opacities within the right middle lung. No dense consolidation. No pleural effusion or pneumothorax. Partially visualized pac er wires. NON-CONTRASTED LIVER, SPLEEN, ADRENALS: Evaluation limited by lack of IV contrast. No identified sign ificant masses. PANCREAS: No masses. No peripancreatic inflammatory changes. GALLBLADDER: No identified stones by CT criteria. No inflammatory changes to suggest cholecystitis. RIGHT KIDNEY AND URETER: No suspicious masses. Assessment limited by lack of IV contrast. No signif icant calcifications. No hydronephrosis or hydroureter. LEFT KIDNEY AND URETER: No suspicious masses. Assessment limited by lack of IV contrast. Punctate c alcific density within the region of the left the ureterovesicular junction. No significant hydro ur eteral nephrosis. AORTA AND RETROPERITONEUM: No aneurysm. Shotty retroperitoneal nodes without discrete adenopathy. N o retroperitoneal hemorrhage. IVC filter and unchanged infrarenal position. There is decreased steve joyce of the IVC. BOWEL AND PERITONEAL CAVITY: No obvious masses or inflammatory changes. No free fluid. APPENDIX: Normal. PELVIS, BLADDER, AND ABDOMINAL WALL:Decompressed urinary bladder. BONES: No significant findings. OTHER: No other significant finding. IMPRESSION: 1. Punctate stone at the left ureteral vesicular junction. No significant upstream hyd roureteronephrosis. No additional renal stones. 2. Decreased caliber of the IVC suggestive of decreased intravascular volume. 3. IVC filter. COMMENT: Quality ID # [id number]: Final reports with documentation of one or more dose reduction techniques (e.g., Automated exposure control, adjustment of the mA and/or kV according to patient size, use of iterative reconstruction technique) TECHNICAL DOCUMENTATION: JOB ID: [id number] [employer]- All Rights Reserved Reading location - IP/workstation name: [email or web address]
[2018-10-01] MEDS ORDERED: ONDANSETRON ODT 4 MG TAB (6 TAB/ER DISP) PO PRN (09:12)
[2018-10-01 09:49] VITALS: BP 147/97
== END 2018-10-01 09:49 | disposition home or self-care (01) ==
LOC: ER 06:16
DX: N20.1 Calculus of ureter (principal); N23 Unspecified renal colic; R30.9 Painful micturition, unspecified; R35.0 Frequency of micturition; D68.61 Antiphospholipid syndrome; D86.9 Sarcoidosis, unspecified; Z86.718 Personal history of other venous thrombosis and embolism; Z79.01 Long term (current) use of anticoagulants
CPT/HCPCS: 99284; 96361; 96374; 36415; 85025; 85610; 80053; 81001; 85379; 74022; 74176; J2405; J7030

== ENCOUNTER 2018-10-01 17:39 | Emergency (ER) | payer BC ==
[2018-10-01] MEDS ORDERED: FENTANYL CITRATE INJ/PF 100 MCG/2 ML AMPUL IV ONE (18:15)
[2018-10-01] MEDS ORDERED: NORMAL SALINE 1000 ML 1,000 ML IV ONE ×2 (18:15→20:52)
[2018-10-01] MEDS ORDERED: ONDANSETRON HCL INJ/PF 4 MG/2 ML SDV IV ONE (18:15)
--- NOTE | 2018-10-01 18:17 | ER Document Report ---
ED Medical Screen (RME) - General Chief Complaint: Flank Pain Stated Complaint: ABDOMINAL/FLANK PAIN Time Seen by Provider: 10/01/18 18:12 Primary Care Provider: MARTHA RAZO MD [Primary Care Provider] - Follow up as needed Mode of Arrival: Wheelchair Information source: Patient, Relative Notes: Patient presents emergency department with reports of kidney stone that was diagnosed this morning earlier in the emergency department. Patient reports he has been vomiting ever since unable to hold any fluids down. Vomited too many times to count. He was prescribed Percocet reports he vomited up even after he took the antinausea medicine first. Reports he has a history of renal disease Hessel filter due to clots. Patient looks like he is very uncomfortable. Reports lower abdominal pain left side. I have greeted and performed a rapid initial assessment of this patient. A comprehensive ED assessment and evaluation of the patient, analysis of test results and completion of the medical decision making process will be conducted by additional ED providers. Dictation of this chart was performed using voice recognition software; therefore, there may be some unintended grammatical errors. TRAVEL OUTSIDE OF THE [place] IN LAST 30 DAYS: No - Related Data Allergies/Adverse Reactions: morphine Allergy (Verified 10/01/18 08:51) Past Medical History - Past Medical History Cardiac Medical History: Reports: Hx DVT - December 2016 and April 2017, Hx Hypertension Renal/ Medical History: Denies: Hx Peritoneal Dialysis Past Surgical History: Reports: Hx Cardiac Catheterization - 04/25/2018, Other - IVC filter placement, Bronchosocopy and trans thoracic needle biopsy. - Immunizations Hx Diphtheria, Pertussis, Tetanus Vaccination: No - Unknown last Tetanus. History of Influenza Vaccine for 02/2017 - 07/2017 Season: No Physical Exam - Vital signs Vitals: Temp Pulse Resp BP Pulse Ox 98.0 F 85 20 157/103 H 95 10/01/18 17:56 10/01/18 17:56 10/01/18 17:56 10/01/18 17:56 10/01/18 17:56 Course - Vital Signs Vital signs: Temp Pulse Resp BP Pulse Ox 98.0 F 85 20 157/103 H 95 10/01/18 17:56 10/01/18 17:56 10/01/18 17:56 10/01/18 17:56 10/01/18 17:56 Doctor's Discharge - Discharge Referrals: MARTHA RAZO MD [Primary Care Provider] - Follow up as needed
[2018-10-01 18:59] LABS: ABSOLUTE LYMPHOCYTES (AUTO) 0.6 10^3/uL (0.5-4.7); ABSOLUTE MONOCYTES (AUTO) 0.5 10^3/uL (0.1-1.4); ABSOLUTE NEUT (AUTO) 7.3 10^3/uL (1.7-8.2); BASOPHILS % (AUTO) 0.5 % (0-2); EOSINOPHILS % (AUTO) 0.3 % (0-6); HEMATOCRIT 47.8 % (37.9-51.0); HEMOGLOBIN 16.4 g/dL (13.5-17.0); MEAN CORPUSCULAR HEMOGLOBIN 30.4 pg (27.0-33.4); MEAN CORPUSCULAR HGB CONC 34.3 g/dL (32.0-36.0); MEAN CORPUSCULAR VOLUME 89 fl (80-97); MONOCYTES % (AUTO) 6.2 % (3-13); PLATELET COUNT 183 10^3/uL (150-450); RED CELL DISTRIBUTION WIDTH 14.3 % (11.5-14.0); TOTAL CELLS COUNTED % (AUTO) 100 %; WHITE BLOOD COUNT 8.5 10^3/uL (4.0-10.5)
[2018-10-01 21:17] LABS: APPEARANCE,URINE CLOUDY; BILIRUBIN,URINE NEGATIVE (NEGATIVE); COLOR,URINE BROWN; GLUCOSE, URINE NEGATIVE (NEGATIVE); KETONES,URINE TRACE mg/dL (NEGATIVE); LEUKOCYTE ESTERASE,URINE NEGATIVE (NEGATIVE); NITRITE,URINE NEGATIVE (NEGATIVE); PROTEIN,URINE 30 mg/dL (NEGATIVE); URINE SPECIFIC GRAVITY 1.019; UROBILINOGEN,URINE NEGATIVE mg/dL (<2.0)
[2018-10-01 21:26] LABS: ALANINE AMINOTRANSFERASE 44 U/L (21-72); ALBUMIN 4.8 g/dL (3.5-5.0); ALKALINE PHOSPHATASE 60 U/L (38-126); ANION GAP 13 (5-19); ASPARTATE AMINO TRANSFERASE 25 U/L (17-59); BILIRUBIN,DIRECT 0.3 mg/dL (0.0-0.4); BILIRUBIN,TOTAL 0.7 mg/dL (0.2-1.3); BLOOD UREA NITROGEN 23 mg/dL (7-20); CALCIUM 9.7 mg/dL (8.4-10.2); CARBON DIOXIDE 23 mmol/L (22-30); CHLORIDE 105 mmol/L (98-107); GLUCOSE 96 mg/dL (75-110); POTASSIUM 4.8 mmol/L (3.6-5.0); SODIUM 141.3 mmol/L (137-145); TOTAL PROTEIN 7.4 g/dL (6.3-8.2)
[2018-10-01 22:12] VITALS: BP 120/81
--- NOTE | 2018-10-01 22:19 | ER Document Report ---
ED General - General Chief Complaint: Flank Pain Stated Complaint: ABDOMINAL/FLANK PAIN Time Seen by Provider: 10/01/18 18:12 Primary Care Provider: MARTHA RAZO MD [Primary Care Provider] - Follow up as needed Mode of Arrival: Wheelchair Information source: Patient, Relative, [facility] Records Notes: 28-year-old male with hypertension, sarcoidosis, glomerulonephritis, antiphospholipid antibody syndrome presents with complaint of left flank pain, persistent nausea and vomiting. Patient was diagnosed earlier today with a kidney stone. He was found then to have an acute kidney injury and was discharged home with pain medication and nausea medication patient states that after discharge he began vomiting and was not able to keep down any of his medications. Upon my exam patient has already received 2 L of IV fluids, pain and nausea medication and states that he is feeling much better. TRAVEL OUTSIDE OF THE [place] IN LAST 30 DAYS: No - HPI Onset: This morning Onset/Duration: Gradual, Persistent, Better Quality of pain: Stabbing Severity: Moderate Pain Level: 2 Associated symptoms: Nausea, Vomiting Exacerbated by: Denies Relieved by: Denies Similar symptoms previously: Yes Recently seen / treated by doctor: Yes - Related Data Allergies/Adverse Reactions: morphine Allergy (Verified 10/01/18 08:51) Past Medical History - General Information source: Patient, Relative - Social History Smoking Status: Never Smoker Chew tobacco use (# tins/day): No Frequency of alcohol use: None Drug Abuse: None Lives with: Spouse/Significant other Family History: CAD, Malignancy - MGF with Colon and Thyroid cancers. Patient has suicidal ideation: No Patient has homicidal ideation: No - Past Medical History Cardiac Medical History: Reports: Hx DVT - December 2016 and April 2017, Hx Hypertension Renal/ Medical History: Denies: Hx Peritoneal Dialysis Past Surgical History: Reports: Hx Cardiac Catheterization - 04/25/2018, Other - IVC filter placement, Bronchosocopy and trans thoracic needle biopsy. - Immunizations Hx Diphtheria, Pertussis, Tetanus Vaccination: No - Unknown last Tetanus. Review of Systems - Review of Systems Notes: REVIEW OF SYSTEMS: CONSTITUTIONAL : Denies fever, chills, or sweats. Denies recent illness. Denies weight loss, recent hospitalizations. EENT: Denies visual changes, eye pain. Denies sore throat, oral lesions, d ifficulty swallowing. CARDIOVASCULAR: Denies chest pain. Denies palpitations. Denies lower extremity edema. RESPIRATORY: Denies cough. Denies shortness of breath, wheezing. GASTROINTESTINAL: Denies abdominal pain or distention. Denies diarrhea. Denies blood in vomitus, stools, or per rectum. Denies black, tarry stools. Denies constipation. GENITOURINARY: Denies difficulty urinating, painful urination, frequency, blood in urine, testicular pain or penile discharge. MUSCULOSKELETAL: Denies neck pain or stiffness. Denies joint pain or swelling. SKIN: Denies rash, lesions or sores. HEMATOLOGIC : Denies easy bruising or bleeding. LYMPHATIC: Denies swollen glands. NEUROLOGICAL: Denies confusion or altered mental status. Denies loss of consciousness. Denies dizziness or lightheadedness. Denies headache. Denies weakness or paralysis. Denies problems difficulty with ambulation, slurred speech. Denies sensory loss, numbness, or tingling. Denies seizures. PSYCHIATRIC: Denies anxiety or stress. Denies depression, suicidal ideation, or Physical Exam - Vital signs Vitals: Temp Pulse Resp BP Pulse Ox 98.0 F 85 20 157/103 H 95 10/01/18 17:56 10/01/18 17:56 10/01/18 17:56 10/01/18 17:56 10/01/18 17:56 - Notes Notes: PHYSICAL EXAMINATION: GENERAL: Well-appearing, well-nourished and in no acute distress. HEAD: Atraumatic, normocephalic. EYES: Pupils equal round and reactive to light, extraocular movements intact, sclera anicteric, conjunctiva are normal. ENT: Nares patent, oropharynx clear without exudates. Moist mucous membranes. NECK: Normal range of motion, supple without lymphadenopathy LUNGS: Breath sounds clear to auscultation bilaterally and equal. No wheezes rales or rhonchi. HEART: Regular rate and rhythm without murmurs ABDOMEN: Soft, nontender, nondistended abdomen. No guarding, no rebound. No masses appreciated. Musculoskeletal: Normal range of motion, no pitting or edema. No cyanosis. NEUROLOGICAL: Cranial nerves grossly intact. Normal speech, normal gait. Normal sensory, motor exams PSYCH: Normal mood, normal affect. SKIN: Warm, Dry, normal turgor, no rashes or lesions noted. Course - Re-evaluation Re-evalutation: Laboratory 10/01/18 10/01/18 10/01/18 18:40 18:40 20:53 WBC 8.5 RBC 5.40 Hgb 16.4 Hct 47.8 MCV 89 MCH 30.4 MCHC 34.3 RDW 14.3 H Plt Count 183 Seg Neutrophils % 86.0 H Lymphocytes % 7.0 L Monocytes % 6.2 Eosinophils % 0.3 Basophils % 0.5 Absolute Neutrophils 7.3 Absolute Lymphocytes 0.6 Absolute Monocytes 0.5 Absolute Eosinophils 0.0 Absolute Basophils 0.0 Sodium Cancelled 141.3 Potassium Cancelled 4.8 Chloride Cancelled 105 Carbon Dioxide Cancelled 23 Anion Gap Cancelled 13 BUN Cancelled 23 H Creatinine Cancelled 1.71 H Est GFR ( Amer) Cancelled 59 L Est GFR (Non-Af Amer) Cancelled 49 L Glucose Cancelled 96 Calcium Cancelled 9.7 Total Bilirubin Cancelled 0.7 Direct Bilirubin Cancelled 0.3 Neonat Total Bilirubin Cancelled Not Reportable Neonat Direct Bilirubin Cancelled Not Reportable Neonat Indirect Bili Cancelled Not Reportable AST Cancelled 25 ALT Cancelled 44 Alkaline Phosphatase Cancelled 60 Total Protein Cancelled 7.4 Albumin Cancelled 4.8 Urine Color Urine Appearance Urine pH Ur Specific [place] Urine Protein Urine Glucose (UA) Urine Ketones Urine Blood Urine Nitrite Urine Bilirubin Urine Urobilinogen Ur Leukocyte Esterase Urine WBC (Auto) Urine RBC (Auto) U Hyaline Cast (Auto) Squamous Epi Cells Auto Urine Mucus (Auto) Urine Ascorbic Acid 10/01/18 20:53 WBC RBC Hgb Hct MCV MCH MCHC RDW Plt Count Seg Neutrophils % Lymphocytes % Monocytes % Eosinophils % Basophils % Absolute Neutrophils Absolute Lymphocytes Absolute Monocytes Absolute Eosinophils Absolute Basophils Sodium Potassium Chloride Carbon Dioxide Anion Gap BUN Creatinine Est GFR ( Amer) Est GFR (Non-Af Amer) Glucose Calcium Total Bilirubin Direct Bilirubin Neonat Total Bilirubin Neonat Direct Bilirubin Neonat Indirect Bili AST ALT Alkaline Phosphatase Total Protein Albumin Urine Color BROWN Urine Appearance CLOUDY Urine pH 5.0 Ur Specific [place] 1.019 Urine Protein 30 H Urine Glucose (UA) NEGATIVE Urine Ketones TRACE H Urine Blood LARGE H Urine Nitrite NEGATIVE Urine Bilirubin NEGATIVE Urine Urobilinogen NEGATIVE Ur Leukocyte Esterase NEGATIVE Urine WBC (Auto) 5 Urine RBC (Auto) 25 U Hyaline Cast (Auto) 10 Squamous Epi Cells Auto <1 Urine Mucus (Auto) MOD Urine Ascorbic Acid NEGATIVE Temp Pulse Resp BP Pulse Ox 98.0 F 80 18 120/81 96 10/01/18 22:10 10/01/18 22:10 10/01/18 22:10 10/01/18 22:10 10/01/18 22:10 10/01/18 22:22 Presents with findings consistent with acute nephrolithiasis. Urinalysis does show hematuria. Laboratory otherwise unremarkable. Pain was able to be controlled here in the emergency department. Patient is tolerating oral intake. Clinical history is not consistent with an acute abdominal aneurysm or dissection, [place], or pulmonary embolus. Urinalysis does not show findings consistent with an infected stone. Vitals have remained within normal limits. Patient will be discharged with recommendations to follow-up with urology, pain medications, and return precautions. They are in agreement with this plan and verbalized indications return to emergency department. - Vital Signs Vital signs: Temp Pulse Resp BP Pulse Ox 98.0 F 80 18 120/81 96 10/01/18 22:10 10/01/18 22:10 10/01/18 22:10 10/01/18 22:10 10/01/18 22:10 - Laboratory Result Diagrams: 10/01/18 18:40 10/01/18 20:53 Laboratory results interpreted by me: 10/01/18 10/01/18 10/01/18 18:40 20:53 20:53 RDW 14.3 H Seg Neutrophils % 86.0 H Lymphocytes % 7.0 L BUN 23 H Creatinine 1.71 H Est GFR ( Amer) 59 L Est GFR (Non-Af Amer) 49 L Urine Protein 30 H Urine Ketones TRACE H Urine Blood LARGE H Discharge - Discharge Clinical Impression: BK (acute kidney injury), Antiphospholipid syndrome, Sarcoidosis, Kidney stone Hematuria Qualifiers: Hematuria type: unspecified type Qualified Code(s): R31.9 - Hematuria, unspecified Nausea & vomiting Qualifiers: Vomiting type: unspecified Vomiting Intractability: non-intractable Qualified Code(s): R11.2 - Nausea with vomiting, unspecified Condition: Good Disposition: HOME, SELF-CARE Additional Instructions: Your symptoms should improve over the course of the next one week. If you c ontinue to have pain for greater than one week or your pain is not controlled with the pain medications that you have been sent home with you need to return to the emergency department. Please also return if you develop fever, persistent vomiting, or any other symptoms that are concerning to you. You are also been sent home with a medication called Flomax to help pass the stone. You've been given Zofran to assist with nausea. Please follow-up with urology in the next 2-3 days. Referrals: MARTHA RAZO MD [Primary Care Provider] - Follow up as needed
== END 2018-10-01 22:28 | disposition home or self-care (01) ==
LOC: ER 17:39
DX: N17.9 Acute kidney failure, unspecified (principal); D86.9 Sarcoidosis, unspecified; D68.61 Antiphospholipid syndrome; N20.0 Calculus of kidney; R11.2 Nausea with vomiting, unspecified; R31.9 Hematuria, unspecified; R10.9 Unspecified abdominal pain; I10 Essential (primary) hypertension
CPT/HCPCS: 99284; 96361; 96374; 96375; 36415; 85025; 80053; 81001; J3010; J2405; J7030

== ENCOUNTER 2019-07-31 21:13 | Emergency (ER) | payer BC ==
[2019-07-31] MEDS ORDERED: KETOROLAC TROMETHAMINE INJ/PF 30 MG/1 ML SDV IV ONE (21:48)
[2019-07-31] MEDS ORDERED: ONDANSETRON HCL INJ/PF 4 MG/2 ML SDV IV ONE (21:48)
[2019-07-31 22:31] LABS: ABSOLUTE MONOCYTES (AUTO) 0.2 10^3/uL (0.1-1.4); BASOPHILS % (AUTO) 0.9 % (0-2); HEMATOCRIT 43.3 % (37.9-51.0); LYMPHOCYTES % (AUTO) 23.9 % (13-45); MEAN CORPUSCULAR HEMOGLOBIN 31.7 pg (27.0-33.4); MEAN CORPUSCULAR HGB CONC 34.7 g/dL (32.0-36.0); MEAN CORPUSCULAR VOLUME 92 fl (80-97); MONOCYTES % (AUTO) 5.5 % (3-13); PLATELET COUNT 116 10^3/uL (150-450); RED BLOOD COUNT 4.73 10^6/uL (4.35-5.55); RED CELL DISTRIBUTION WIDTH 14.5 % (11.5-14.0); SEGMENTED NEUTROPHILS % (AUTO) 68.7 % (42-78); TOTAL CELLS COUNTED % (AUTO) 100 %; WHITE BLOOD COUNT 4.3 10^3/uL (4.0-10.5)
[2019-07-31] MEDS ORDERED: NORMAL SALINE 1000 ML 1,000 ML IV ONE (22:41)
[2019-07-31 22:53] LABS: ALBUMIN 4.6 g/dL (3.5-5.0); ALKALINE PHOSPHATASE 54 U/L (38-126); ANION GAP 13 (5-19); ASPARTATE AMINO TRANSFERASE 36 U/L (17-59); BILIRUBIN,DIRECT 0.3 mg/dL (0.0-0.4); BILIRUBIN,TOTAL 0.6 mg/dL (0.2-1.3); BLOOD UREA NITROGEN 22 mg/dL (7-20); CALCIUM 9.5 mg/dL (8.4-10.2); CARBON DIOXIDE 22 mmol/L (22-30); CHLORIDE 102 mmol/L (98-107); GLUCOSE 115 mg/dL (75-110); POTASSIUM 4.3 mmol/L (3.6-5.0); TOTAL PROTEIN 7.6 g/dL (6.3-8.2)
[2019-07-31 23:14] LABS: APPEARANCE,URINE SLIGHTLY-CLOUDY; BILIRUBIN,URINE NEGATIVE (NEGATIVE); COLOR,URINE BROWN; GLUCOSE, URINE NEGATIVE (NEGATIVE); KETONES,URINE TRACE mg/dL (NEGATIVE); LEUKOCYTE ESTERASE,URINE NEGATIVE (NEGATIVE); NITRITE,URINE NEGATIVE (NEGATIVE); PROTEIN,URINE 30 mg/dL (NEGATIVE); URINE SPECIFIC GRAVITY 1.023; UROBILINOGEN,URINE NEGATIVE mg/dL (<2.0)
--- NOTE | 2019-07-31 23:15 | ER Document Report ---
Entered by LUCINA BRIONES SCRIBE 07/31/19 5521 Acting as scribe for:JASMIN HARPER IV, MD ED GI/ - General Chief Complaint: Flank Pain Stated Complaint: POSSIBLE KIDNEY STONES/VOMITING Time Seen by Provider: 07/31/19 22:01 Primary Care Provider: MARTHA RAZO MD [ACTIVE STAFF] - Follow up as needed Information source: Patient Notes: 29-year-old male presents to the emergency department complaining of flank pain. Patient describes the pain as right-sided and as throbbing. Patient states that he has had "plenty of kidney stones" in the past and this pain is equivalent to the pain he has felt prior. Patient reports associated nausea with extreme pain. Patient also states that he feels nauseous with movement. Patient states that he feels fine at the moment. TRAVEL OUTSIDE OF THE [place] IN LAST 30 DAYS: No - Related Data Allergies/Adverse Reactions: morphine Allergy (Verified 07/31/19 21:46) Past Medical History - General Information source: Patient - Social History Smoking Status: Never Smoker Cigarette use (# per day): No Chew tobacco use (# tins/day): No Lives with: Spouse/Significant other Family History: CAD, Malignancy - MGF with Colon and Thyroid cancers. Patient has suicidal ideation: No Patient has homicidal ideation: No - Past Medical History Cardiac Medical History: Reports: Hx DVT - December 2016 and April 2017, Hx Hypertension, Hx Pulmonary Embolism, Other - Antiphospholipid antibody syndrome Pulmonary Medical History: Reports: Other - Sarcodiosis: lung, kidney and heart Renal/ Medical History: Reports: Hx Kidney Stones, Other - CKD-stage 3, glomerulonephritis Past Surgical History: Reports: Hx Cardiac Catheterization - 04/25/2018, Hx Pacemaker, Other - IVC filter placement, Bronchosocopy and trans thoracic needle biopsy. - Immunizations Hx Diphtheria, Pertussis, Tetanus Vaccination: No - Unknown last Tetanus. Review of Systems - Review of Systems Constitutional: No symptoms reported EENT: No symptoms reported Cardiovascular: No symptoms reported Respiratory: No symptoms reported Gastrointestinal: See HPI, Nausea Genitourinary: See HPI, Flank pain Male Genitourinary: No symptoms reported Musculoskeletal: No symptoms reported Skin: No symptoms reported Hematologic/Lymphatic: No symptoms reported Neurological/Psychological: No symptoms reported -: Yes All other systems reviewed and negative Physical Exam - Vital signs Vitals: Temp Pulse Resp BP Pulse Ox 97.8 F 68 20 148/100 H 100 07/31/19 21:19 07/31/19 21:19 07/31/19 21:19 07/31/19 21:19 07/31/19 21:19 - Notes Notes: Physical Exam: General: Alert, appears well. HEENT: Normocephalic. Atraumatic. PERRL. Extraocular movements intact. Oropharynx clear. Neck: Supple. Non-tender. Respiratory: No respiratory distress. Clear and equal breath sounds bilaterally. Cardiovascular: Regular rate and rhythm. Abdominal: Normal Inspection. Non-tender. No distension. Normal Bowel Sounds. Back: No gross abnormalities. Extremities: Moves all four extremities. Upper extremities: Normal inspection. Normal ROM. Lower extremities: Normal inspection. No edema. Normal ROM. Neurological: Normal cognition. AAOx4. Normal speech. Psychological: Normal affect. Normal Mood. Skin: Warm. Dry. Normal color. Course - Re-evaluation Re-evalutation: 08/01/19 00:29 Patient states he is pain and nausea free at this point. Findings of ED MSE discussed with patient and patient's significant other. All questions were answered prior to discharge. Emergency signs and symptoms, reasons to return to the emergency department discussed with patient and patient spouse. - Vital Signs Vital signs: Temp Pulse Resp BP Pulse Ox 97.8 F 68 13 117/84 95 07/31/19 21:19 07/31/19 21:19 08/01/19 00:00 07/31/19 22:31 08/01/19 00:00 - Laboratory Result Diagrams: 07/31/19 22:11 07/31/19 22:11 Laboratory results interpreted by me: 07/31/19 07/31/19 07/31/19 22:11 22:11 22:51 RDW 14.5 H Plt Count 116 L BUN 22 H Creatinine 1.57 H Est GFR (MDRD) Non-Af 53 L Glucose 115 H ALT 53 H Urine Protein 30 H Urine Ketones TRACE H Urine Blood LARGE H - Diagnostic Test Radiology reviewed: Reports reviewed Discharge - Discharge Clinical Impression: Renal colic on right side Hematuria Qualifiers: Hematuria type: unspecified type Qualified Code(s): R31.9 - Hematuria, unspecified Condition: Good Disposition: HOME, SELF-CARE Additional Instructions: Return to the Emergency Department without delay if any worse. HOME CARE INSTRUCTIONS & INFORMATION: Thank you for choosing us for your medical needs. We hope you're satisfied with the care you received. After you leave, you must properly care for your problem and, at the same time, observe its progress. Any condition can change. Some illnesses can change rapidly over hours or days. If your condition worsens, return to the Emergency Department or see your physician promptly. ABOUT YOUR X-RAYS AND EKG'S: If you had an EKG or X-rays taken, they have been read by the Emergency Physician. The X-rays and EKG's will also be read by a Radiologist or External Grinder Tender within 24 hours. If discrepancies are noted, you will be notified by telephone. Please be certain the ED has a correct telephone number & address where you can be reached. Also, realize that some fractures or abnormalities do not show up on initial X-rays. If your symptoms continue, see your physician. ABOUT YOUR LABORATORY TEST: If you had laboratory tests, the results have been reviewed by the Emergency Physician. Some test results (for example cultures) may not be available for several days. You will be contacted if any test result shows you need additional treatment. Please be certain the ED has a correct telephone number and address where you can be reached. ABOUT YOUR MEDICATIONS: You will receive instructions on how to take your med icine on the prescription label you receive. Additional information may be provided by the Pharmacy. If you have questions afterwards, call the ED for clarification or further instructions. Some prescribed medications may cause drowsiness. Do not perform tasks such as driving a car or operating machinery without consulting your Pharmacist. If you feel you need a refill of pain medication, your condition will need re-evaluation. Please do not call for a refill of any medication. ABOUT YOUR SIGNATURE: Signature of this document acknowledges to followin. Understanding that you received emergency treatment and that you may be released before al medical problems are known or treated. Please be certain the ED has a correct phone number & address where you can be reached. 2. Acknowledgement that you will arrange for follow-up care as recommended. 3. Authorization for the Emergency Physician to provide information to your follow-up Physician in order to maximize your care. AT ANY TIME, IF YOUR SYMPTOMS CHANGE SIGNIFICANTLY OR WORSEN OR YOU DEVELOP NEW SYMPTOMS, RETURN TO THE EMERGENCY DEPARTMENT IMMEDIATELY FOR RE-EVALUATION. OUR GOAL IS TO PROVIDE EXCELLENT MEDICAL CARE! WE HOPE THAT WE HAVE MET YOUR EXPECTATIONS DURING YOUR EMERGENCY DEPARTMENT VISIT AND THAT YOU FEEL YOU HAVE RECEIVED EXCELLENT CARE! Kidney Stone You are passing or have passed a kidney stone. These stones are usually due to increased calcium or uric acid concentrations in your urine. Stones within the kidney itself are not painful. The pain occurs as the stone leaves the kidney to pass down the long tube, called the ureter, leading to the bladder. If the stone is small, it will usually pass by itself. Most patients can pass the stone at home. You will usually receive medications for pain, nausea or vomiting, and sometimes a medication to assist in passing the kidney stone. However, if the pain is very severe or if vomiting prevents you from taking oral pain medications, you may need to return for further treatment. Drink three or four quarts of fluids per day. You will be given pain medic ation (if needed) and urine strainers. Strain all your urine to see if the stone passes. If your doctor has asked you to bring the stone in for analysis, return with the stone once it has passed. Return if pain or vomiting become severe, if you develop a high fever, if you are unable to pass your urine, or if other unusual symptoms occur. Referrals: MARTHA RAZO MD [ACTIVE STAFF] - Follow up as needed I personally performed the services described in the documentation, reviewed and edited the documentation which was dictated to the scribe in my presence, and it accurately records my words and actions.
--- NOTE | 2019-07-31 23:25 | RADIOLOGY REPORT (SQ) ---
EXAM DESCRIPTION: CT ABDOMEN PELVIS WITHOUT IV CONTRAST COMPLETED DATE/TME: 07/31/2019 22:42 CLINICAL HISTORY: 29 years, Male, right flank pain, h/o kidney stones COMPARISON: Prior study from 05/01/2017; 10/01/2018 TECHNIQUE: Noncontrast CT of the abdomen/pelvis was acquired. Coronal and sagittal reformations were created. Images stored on PACS. All CT scanners at this facility use dose modulation, iterative reconstruction, and/or weight based dosing when appropriate to reduce radiation dose to as low as reasonably achievable (ALARA). [facility]: Dose Right [facility]: CareDose [facility]: Dose Right [facility]: Teradose 4D [facility]: Smart Jaunt LIMITATIONS: None. FINDINGS: Limited evaluation of the lower chest reveals clear lung bases. The liver appears diffusely low in attenuation relative to the spleen. No focal liver lesions are appreciated. Spleen, pancreas, gallbladder, and both adrenal glands appear normal. Suspected fluid density lesion is noted about the interpolar region of the right kidney on image 41 of series 3, containing a tiny peripheral calcification on image 43 of series 3. This was present on the previous examination dated 05/01/2017, and appears similar. There is mild right hydronephrosis/hydroureter. However, no definite nephroureteral calculi are appreciated. The urinary bladder is collapsed, thus its evaluation is limited. The small and large bowel appear normal in caliber without areas of focal wall thickening. No evidence of bowel obstruction. The appendix is normal. There is a tiny fat-containing umbilical hernia. In addition, there is a recanalized umbilical vein. An inferior vena cava filter is in position. A few small/mildly prominent elbow: Lymph nodes are noted which appears similar to the previous examination, nonspecific/likely benign. A few additional portacaval lymph nodes are noted which appear mildly enlarged, somewhat increased from the previous examination dated 05/01/2017. For example, there is a portacaval lymph node on image 31 of series 3 which measures 2.8 x 1.2 cm in size. However, this appears similar to the previous study dated 10/01/2018, and is thus most likely benign/reactive. Bone windows show no destructive osseous lesions. IMPRESSION: Mild right hydronephrosis/hydroureter without identifiable cause. A recently evacuated calculus is a possibility. Suspect hepatic steatosis. Suspect fluid density lesion located about the interpolar region of the right kidney which may contain a tiny peripheral calcification, unchanged from the previous study dated 05/01/2017, presumably corresponding to a minimally complex cyst. TECHNICAL DOCUMENTATION: Quality ID # 436: Final reports with documentation of one or more dose reduction techniques (e.g., Automated exposure control, adjustment of the mA and/or kV according to patient size, use of iterative reconstruction technique) copyright 2011 [employer]- All Rights Reserved
[2019-08-01 01:03] VITALS: BP 102/55
== END 2019-08-01 01:03 | disposition home or self-care (01) ==
LOC: ER 21:13
DX: N23 Unspecified renal colic (principal); R31.9 Hematuria, unspecified; R11.0 Nausea; Z88.8 Allergy status to other drugs, medicaments and biological substances
CPT/HCPCS: 99284; 96361; 96374; 96375; 36415; 83690; 85025; 80053; 81001; 74176; J1885; J2405; J7030

== ENCOUNTER 2019-12-02 12:43 | Emergency (ER) | payer BC ==
--- NOTE | 2019-12-02 15:01 | RADIOLOGY REPORT (SQ) ---
EXAM DESCRIPTION: CHEST SINGLE VIEW IMAGES COMPLETED DATE/TIME: 12/02/2019 2:28 pm REASON FOR STUDY: bed 34 short of breath COMPARISON: None. EXAM PARAMETERS: NUMBER OF VIEWS: One view. TECHNIQUE: Single frontal radiographic view of the chest acquired. RADIATION DOSE: NA LIMITATIONS: None. FINDINGS: LUNGS AND PLEURA: No opacities, masses or pneumothorax. No pleural effusion. MEDIASTINUM AND HILAR STRUCTURES: No masses. Contour normal. HEART AND VASCULAR STRUCTURES: Heart normal in size. Normal vasculature. BONES: No acute findings. HARDWARE: Transvenous pacemaker. OTHER: No other significant finding. IMPRESSION: NO ACUTE RADIOGRAPHIC FINDING IN THE CHEST. TECHNICAL DOCUMENTATION: JOB ID: [id number] 2010 [employer]- All Rights Reserved Reading location - IP/workstation name: [email or web address]
[2019-12-02] MEDS ORDERED: NORMAL SALINE 1000 ML 1,000 ML IV ONE (17:11)
--- NOTE | 2019-12-02 17:17 | ER Document Report ---
ED General - General Chief Complaint: Shortness Of Breath Stated Complaint: SHORT OF BREATH,DIARRHEA,DIZZINESS Time Seen by Provider: 12/02/19 14:22 Primary Care Provider: MILLER AUGUSTE FNP [Primary Care Provider] - Follow up as needed TRAVEL OUTSIDE OF THE [place]. IN LAST 30 DAYS: No - HPI Notes: Chief complaint: Possible heat exhaustion HPI: 29-year-old male with history of sarcoidosis and antiphospholipid syndrome who is taking Eliquis and under the care of a industrial aerial installer. 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 He felt weak and somewhat lightheaded but did not experience any syncope, chest pain or focal neurologic symptoms. He also says he has had a slight dry cough for the past 2 days and had 1 loose stool this morning. He denies any known exposure to COVID positive individuals but did travel to [place] this past weekend. He denies any change in his sense of taste or smell. - Related Data Allergies/Adverse Reactions: morphine Allergy (Verified 12/02/19 14:01) Past Medical History - General Information source: Patient - The best response - Social History Smoking Status: Former Smoker Chew tobacco use (# tins/day): Yes Frequency of alcohol use: Occasional Drug Abuse: None Family History: CAD, Malignancy - MGF with Colon and Thyroid cancers. Patient has homicidal ideation: No - Past Medical History Cardiac Medical History: Reports: Hx DVT - December 2016 and April 2017, Hx Hypertension, Hx Pulmonary Embolism Renal/ Medical History: Reports: Hx Kidney Stones. Denies: Hx Peritoneal Dialysis Past Surgical History: Reports: Hx Cardiac Catheterization - 04/25/2018, Hx Pacemaker, Other - IVC filter placement, Bronchosocopy and trans thoracic needle biopsy. - Immunizations Hx Diphtheria, Pertussis, Tetanus Vaccination: No - Unknown last Tetanus. Review of Systems - Review of Systems Notes: Constitutional: Negative for fever. HENT: Negative for sore throat. Eyes: Negative for visual changes. Cardiovascular: Negative for chest pain. Respiratory: Nonproductive cough. Negative for shortness of breath. Gastrointestinal: As per HPI. Genitourinary: Negative for dysuria. Musculoskeletal: Negative for back pain. Skin: Negative for rash. Neurological: Negative for headaches, focal weakness or numbness. 10 point ROS negative except as marked above and in HPI. Physical Exam - Vital signs Vitals: Temp Pulse Resp BP Pulse Ox 98.7 F 84 18 108/65 97 12/02/19 12:54 12/02/19 12:54 12/02/19 12:54 12/02/19 12:54 12/02/19 12:54 - Notes Notes: GENERAL: Mildly obese male patient approximately stated age appearing in no acute distress. SKIN: Good turgor no rashes. HEAD: Normocephalic atraumatic. EYES: PERRLA. EOMI. Conjunctivae and sclerae clear. EARS: CANALS AND TMS CLEAR. NOSE: CLEAR. MOUTH: Moist mucosa. Good dentition. No stridor or edema. No drooling. NECK: Supple. No masses or thyromegaly. No adenopathy. Carotids 2+ without bruits. No JVD. BACK: Symmetrical without tenderness. CHEST: Respirations unlabored. Breath sounds clear and symmetrical. HEART: Regular rhythm. No murmur gallop or rub. ABDOMEN: Soft nontender without masses, organomegaly or rebound. Bowel sounds normally active. No bruits. GENITALIA: Deferred. EXTREMITIES: No edema. No calf tenderness. Cap refill less than 1.5 seconds. Dorsalis pedis and posterior tibial pulses 3+ and symmetrical. NEUROLOGICAL: GCS 15. Alert and oriented x3. Normal gait. Fluent speech. Cranial nerves II through XII intact. Sensorimotor and cerebellar normal. Normal tone. PSYCHIATRIC: Appropriate affect. Course - Vital Signs Vital signs: Temp Pulse Resp BP Pulse Ox 98.7 F 84 18 108/65 97 12/02/19 13:05 12/02/19 12:54 12/02/19 12:54 12/02/19 12:54 12/02/19 12:54 - Laboratory Result Diagrams: 12/02/19 13:26 12/02/19 13:26 Laboratory results interpreted by me: 12/02/19 12/02/19 13:26 13:26 WBC 3.7 L RDW 14.4 H Potassium 5.2 H Chloride 111 H Carbon Dioxide 20 L BUN 30 H Creatinine 2.09 H Est GFR ( Amer) 46 L Est GFR (MDRD) Non-Af 38 L Glucose 74 L Calcium 10.4 H ALT 51 H Discharge - Discharge Clinical Impression: BK (acute kidney injury), Dehydration, Antiphospholipid syndrome, Sarcoidosis Disposition: ADMITTED OBSERVATION Admitting Provider: Giovanna (Hospitalist) Unit Admitted: Medical Floor Referrals: MILLER AUGUSTE FNP [Primary Care Provider] - Follow up as needed
[2019-12-02 17:37] LABS: ABSOLUTE BASOPHILS # (AUTO) 0.1 10^3/uL (0.0-0.2); ABSOLUTE EOSINOPHILS # (AUTO) 0.1 10^3/uL (0.0-0.6); ABSOLUTE LYMPHOCYTES (AUTO) 1.1 10^3/uL (0.5-4.7); ABSOLUTE MONOCYTES (AUTO) 0.4 10^3/uL (0.1-1.4); ABSOLUTE NEUT (AUTO) 2.1 10^3/uL (1.7-8.2); BASOPHILS % (AUTO) 1.8 % (0-2); EOSINOPHILS % (AUTO) 2.2 % (0-6); HEMATOCRIT 42.3 % (37.9-51.0); HEMOGLOBIN 14.6 g/dL (13.5-17.0); LYMPHOCYTES % (AUTO) 29.5 % (13-45); MEAN CORPUSCULAR HEMOGLOBIN 31.5 pg (27.0-33.4); MEAN CORPUSCULAR HGB CONC 34.6 g/dL (32.0-36.0); MEAN CORPUSCULAR VOLUME 91 fl (80-97); PLATELET COUNT 151 10^3/uL (150-450); RED BLOOD COUNT 4.64 10^6/uL (4.35-5.55); RED CELL DISTRIBUTION WIDTH 14.4 % (11.5-14.0); SEGMENTED NEUTROPHILS % (AUTO) 55.5 % (42-78); TOTAL CELLS COUNTED % (AUTO) 100 %; WHITE BLOOD COUNT 3.7 10^3/uL (4.0-10.5)
[2019-12-02 17:49] LABS: ALBUMIN 4.5 g/dL (3.5-5.0); ALKALINE PHOSPHATASE 49 U/L (38-126); ANION GAP 8 (5-19); ASPARTATE AMINO TRANSFERASE 33 U/L (17-59); BILIRUBIN,TOTAL 0.5 mg/dL (0.2-1.3); BLOOD UREA NITROGEN 30 mg/dL (7-20); CALCIUM 10.4 mg/dL (8.4-10.2); CARBON DIOXIDE 20 mmol/L (22-30); CHLORIDE 111 mmol/L (98-107); GLUCOSE 74 mg/dL (75-110); POTASSIUM 5.2 mmol/L (3.6-5.0); TOTAL PROTEIN 7.6 g/dL (6.3-8.2)
[2019-12-02 18:10] LABS: A TYPE INFLUENZA AG NEGATIVE (NEGATIVE); B INFLUENZA AG NEGATIVE (NEGATIVE)
[2019-12-02] MEDS ORDERED: NORMAL SALINE 1000 ML 1,000 ML IV PRN (18:18)
[2019-12-02] MEDS ORDERED: ONDANSETRON HCL INJ/PF 4 MG/2 ML SDV IV PRN (18:18)
--- NOTE | 2019-12-02 18:52 | PDOC H&P ---
History of Present Illness Admission Date/PCP: 12/02/19 18:33 MONIE [place] Patient complains of: Came in with complaints of dizziness, shortness of breath. History of Present Illness: CHI BARONE is a 29 year old male history of sarcoidosis, antiphospholipid antibody syndrome, history of bilateral PE on Eliquis came to the emergency room with complaints of dizziness lightheadedness since yesterday. 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 Denies any body aches muscle aches. Denies any nausea vomiting diarrhea. Work-up in the emergency room shows creatinine of 2.09 as per the patient creatinine is around 1.2-1.3. Potassium is slightly elevated at 5.2. Unfortunately CK level is not available. Patient agreed to stay in the hospital for further management. Kober test was done in in the ER because apparently patient is complained about nausea at the time of arrival. Past Medical History Cardiac Medical History: Reports: DVT - December 2016 and April 2017, Hypert ension, Pulmonary Embolism Hematology: Denies: Anemia Past Surgical History Past Surgical History: Reports: Cardiac Catheterization - 04/25/2018, Pacemaker, Other - IVC filter placement, Bronchosocopy and trans thoracic needle biopsy. Social History Smoking Status: Former Smoker Frequency of Alcohol Use: Rare Hx Recreational Drug Use: No Drugs: None Hx Prescription Drug Abuse: No - Advance Directive Resuscitation Status: Full Code Family History Family History: CAD, Malignancy - MGF with Colon and Thyroid cancers. Parental Family History Reviewed: Yes - Hypertension Children Family History Reviewed: Yes Sibling(s) Family History Reviewed.: Yes Medication/Allergy Home Medications: Trazodone HCl 150 mg PO QHS 05/03/17 Losartan Potassium 50 mg PO DAILY 10/02/17 Mycophenolate Mofetil [Cellcept] 1,000 mg PO BID 10/02/17 Apixaban [Eliquis 5 mg Tablet] 5 mg PO BID 10/11/17 Metoprolol Succinate [Toprol Xl 25 mg Tab.sr] 50 mg PO QAM 10/11/17 Prednisone 40 mg PO CONTINUOUS PRN 5 Days tablet 10/14/17 Oxycodone HCl/Acetaminophen [Percocet 5-325 mg Tablet] 1 tab PO ASDIR PRN #15 tablet 10/01/18 Allergies/Adverse Reactions: morphine Allergy (Verified 12/02/19 14:01) Review of Systems Constitutional: ABSENT: fever(s) Eyes: ABSENT: visual disturbances Ears: ABSENT: hearing changes Nose, Mouth, and Throat: ABSENT: sore throat Cardiovascular: ABSENT: orthropnea, palpitations Respiratory: ABSENT: dyspnea, hemoptysis Gastrointestinal: ABSENT: dysphagia, heartburn Genitourinary: ABSENT: dysuria, hematuria Integumentary: ABSENT: rash, wounds Neurological: PRESENT: dizziness Psychiatric: ABSENT: anxiety, depression, homidical ideation, suicidal ideation Endocrine: ABSENT: cold intolerance, heat intolerance, polydipsia, polyuria Hematologic/Lymphatic: ABSENT: easy bleeding, easy bruising Physical Exam Vital Signs: Temp Pulse Resp BP Pulse Ox 98.7 F 84 18 108/65 97 12/02/19 13:05 12/02/19 12:54 12/02/19 12:54 12/02/19 12:54 12/02/19 12:54 Intake & Output 12/01/19 12/02/19 12/03/19 06:59 06:59 06:59 Intake Total 1000 Balance 1000 Weight 138.346 kg General appearance: PRESENT: no acute distress Head exam: PRESENT: atraumatic Eye exam: PRESENT: PERRLA Ear exam: PRESENT: normal external ear exam Mouth exam: PRESENT: neck supple Neck exam: ABSENT: carotid bruit, JVD, lymphadenopathy, thyromegaly Respiratory exam: PRESENT: decreased breath sounds Cardiovascular exam: PRESENT: RRR. ABSENT: diastolic murmur, rubs, systolic murmur Pulses: PRESENT: normal dorsalis pedis pul GI/Abdominal exam: PRESENT: normal bowel sounds, soft. ABSENT: distended, guarding, mass, organolmegaly, rebound, tenderness Rectal exam: PRESENT: deferred Extremities exam: PRESENT: full ROM. ABSENT: calf tenderness, clubbing, pedal edema Neurological exam: PRESENT: alert, awake, oriented to person, oriented to place, oriented to time, oriented to situation, CN II-XII grossly intact. ABSENT: motor sensory deficit Psychiatric exam: PRESENT: appropriate affect, normal mood. ABSENT: homicidal ideation, suicidal ideation Skin exam: PRESENT: dry, intact, warm. ABSENT: cyanosis, rash Results Laboratory Results: 12/02/19 13:26 12/02/19 13:26 12/02/19 12/02/19 13:26 13:26 WBC 3.7 L RBC 4.64 Hgb 14.6 Hct 42.3 MCV 91 MCH 31.5 MCHC 34.6 RDW 14.4 H Plt Count 151 Seg Neutrophils % 55.5 Sodium 138.5 Potassium 5.2 H Chloride 111 H Carbon Dioxide 20 L Anion Gap 8 BUN 30 H Creatinine 2.09 H Est GFR ( Amer) 46 L Glucose 74 L Calcium 10.4 H Total Bilirubin 0.5 AST 33 Alkaline Phosphatase 49 Total Protein 7.6 Albumin 4.5 12/02/19 13:26 Troponin I < 0.012 Impressions: Chest X-Ray 12/02/19 00:00 IMPRESSION: NO ACUTE RADIOGRAPHIC FINDING IN THE CHEST. Assessment and Plan - Diagnosis (1) BK (acute kidney injury) Is this a current diagnosis for this admission?: Yes Plan: 12/02/2019-patient's baseline creatinine is around 1.2-1.3 came in with a serum creatinine of 2.09. AKA most likely secondary to working in the heat and in the outdoors. Started on IV fluids normal saline at 125 cc/h patient is received 1 L of normal saline in the ER. Plan is to restart his home medications GI prophylaxis is initiated. Patient is already on Eliquis. (2) Antiphospholipid syndrome Is this a current diagnosis for this admission?: No Plan: 12/02/2019-patient has history of antiphospholipid antibody with bilateral PE. On Eliquis. Plan is to continue the application at this time. (3) Sarcoidosis Is this a current diagnosis for this admission?: No Plan: 12/02/2019-patient has history of sarcoidosis on Humira at home. He is not taking prednisone at this time. (4) Obesity Is this a current diagnosis for this admission?: No Plan: 12/02/2019-patient BMI is more than 41. Diet exercise weight loss lifestyle modifications discussed with the patient. (5) Hyperkalemia Is this a current diagnosis for this admission?: Yes Plan: 12/02/2019-serum potassium is 5.2. May be secondary to ERMELINDA inhibitor hours. To hold ERMELINDA inhibitor at this time and started on IV fluids normal saline at 125 cc/h.
[2019-12-02] MEDS ORDERED: PANTOPRAZOLE SODIUM 40 MG TABLET.DR PO ONE (19:15)
[2019-12-02] MEDS ORDERED: IPRATROPIUM/ALBUTEROL 0.5-2.5 MG/3 ML AMPUL NEB ONE (19:30)
[2019-12-02 19:31] LABS: APPEARANCE,URINE CLEAR; BILIRUBIN,URINE NEGATIVE (NEGATIVE); COLOR,URINE YELLOW; GLUCOSE, URINE NEGATIVE (NEGATIVE); KETONES,URINE NEGATIVE (NEGATIVE); PROTEIN,URINE NEGATIVE (NEGATIVE); URINE SPECIFIC GRAVITY 1.018; UROBILINOGEN,URINE NEGATIVE mg/dL (<2.0)
[2019-12-02 19:41] LABS: CREATINE KINASE MB 1.35 ng/mL (<4.55)
[2019-12-02 20:02] LABS: TROPONIN I < 0.012 ng/mL
[2019-12-02 22:00] LABS: URINE AMPHETAMINES SCREEN NEGATIVE; URINE BARBITURATES SCREEN NEGATIVE; URINE BENZODIAZEPINES SCREEN NEGATIVE; URINE COCAINE SCREEN NEGATIVE; URINE MARIJUANA (THC) SCREEN NEGATIVE; URINE METHADONE SCREEN NEGATIVE; URINE PHENCYCLIDINE SCREEN NEGATIVE
[2019-12-02 23:54] VITALS: BP 104/52
--- NOTE | 2019-12-03 13:15 | EKG REPORT ---
SEVERITY:- ABNORMAL ECG - ATRIAL-PACED COMPLEXES : Confirmed by: Todd Carter MD 03-Dec-2019 13:15:07
== END 2019-12-03 00:23 | disposition left against medical advice (07) ==
LOC: ER 12:43 → UNDOADMOB 18:33 → OBSVTOIN 18:33 → INTOOBSV 18:33 → EH 18:33 → ER 12-03 00:23
DX: E86.0 Dehydration (principal); N17.9 Acute kidney failure, unspecified; D86.9 Sarcoidosis, unspecified; D68.61 Antiphospholipid syndrome; R05 Cough; R19.7 Diarrhea, unspecified; R42 Dizziness and giddiness; E66.9 Obesity, unspecified; Z79.01 Long term (current) use of anticoagulants; Z87.891 Personal history of nicotine dependence; Z88.6 Allergy status to analgesic agent; Z88.5 Allergy status to narcotic agent; Z20.828 Contact with and (suspected) exposure to other viral communicable diseases
CPT/HCPCS: 93005; 99285; 96360; 96361; 36415; 82553; 82550; 85025; 87635; 80053; 81001; 84484; 80307; 87804; 71045; 93010; J7030; J3490; C9803

== ENCOUNTER 2020-02-02 11:41 | Emergency (ER) | payer SELFPAY ==
--- NOTE | 2020-02-02 12:22 | ER Document Report ---
ED Medical Screen (RME) - General Chief Complaint: Flank Pain Stated Complaint: FLANK PAIN Time Seen by Provider: 02/02/20 12:15 Primary Care Provider: MILLER AUGUSTE FNP [Primary Care Provider] - Follow up as needed Notes: Patient is a 29-year-old female with a history of glomerulonephritis and kidney stones who presents emergency department with a chief complaint of right flank pain that started yesterday evening and radiated around to his right abdomen. Patient states that he had been vomiting. Was brought in by EMS and given Zofran and Toradol. He states the pain is better. Exam: No CVA tenderness noted bilaterally, appears that the medicine has helped with his pain. We will send the patient for renal ultrasound, labs will be drawn, urine will be sent. I have greeted and performed a rapid initial assessment of this patient. A comprehensive ED assessment and evaluation of the patient, analysis of test results and completion of medical decision making process will be conducted by an additional ED providers. TRAVEL OUTSIDE OF THE [place] IN LAST 30 DAYS: No - Related Data Allergies/Adverse Reactions: morphine Allergy (Verified 02/02/20 12:11) Past Medical History - Past Medical History Cardiac Medical History: Reports: Hx DVT - December 2016 and April 2017, Hx Hypertension, Hx Pulmonary Embolism Renal/ Medical History: Reports: Hx Kidney Stones. Denies: Hx Peritoneal Dialysis Past Surgical History: Reports: Hx Cardiac Catheterization - 04/25/2018, Hx Pacemaker, Other - IVC filter placement, Bronchosocopy and trans thoracic needle biopsy. - Immunizations Hx Diphtheria, Pertussis, Tetanus Vaccination: No - Unknown last Tetanus. Physical Exam - Vital signs Vitals: Temp Pulse Resp BP Pulse Ox 98.7 F 69 16 135/79 H 94 02/02/20 11:47 02/02/20 11:47 02/02/20 11:47 02/02/20 11:47 02/02/20 11:47 Course - Vital Signs Vital signs: Temp Pulse Resp BP Pulse Ox 98.7 F 69 16 135/79 H 94 02/02/20 11:47 02/02/20 11:47 02/02/20 11:47 02/02/20 11:47 02/02/20 11:47 Doctor's Discharge - Discharge Referrals: MILLER AUGUSTE FNP [Primary Care Provider] - Follow up as needed
[2020-02-02 13:00] LABS: ABSOLUTE EOSINOPHILS # (AUTO) 0.1 10^3/uL (0.0-0.6); ABSOLUTE LYMPHOCYTES (AUTO) 0.7 10^3/uL (0.5-4.7); ABSOLUTE MONOCYTES (AUTO) 0.3 10^3/uL (0.1-1.4); ABSOLUTE NEUT (AUTO) 5.5 10^3/uL (1.7-8.2); BASOPHILS % (AUTO) 0.7 % (0-2); EOSINOPHILS % (AUTO) 0.8 % (0-6); HEMATOCRIT 40.5 % (37.9-51.0); HEMOGLOBIN 14.1 g/dL (13.5-17.0); LYMPHOCYTES % (AUTO) 10.8 % (13-45); MEAN CORPUSCULAR HEMOGLOBIN 32.1 pg (27.0-33.4); MEAN CORPUSCULAR HGB CONC 34.9 g/dL (32.0-36.0); MEAN CORPUSCULAR VOLUME 92 fl (80-97); MONOCYTES % (AUTO) 4.7 % (3-13); PLATELET COUNT 131 10^3/uL (150-450); RED CELL DISTRIBUTION WIDTH 14.3 % (11.5-14.0); TOTAL CELLS COUNTED % (AUTO) 100 %; WHITE BLOOD COUNT 6.7 10^3/uL (4.0-10.5)
[2020-02-02 13:18] LABS: ALBUMIN 4.8 g/dL (3.5-5.0); ALKALINE PHOSPHATASE 52 U/L (38-126); ANION GAP 13 (5-19); ASPARTATE AMINO TRANSFERASE 35 U/L (17-59); BILIRUBIN,DIRECT 0.3 mg/dL (0.0-0.4); BILIRUBIN,TOTAL 0.7 mg/dL (0.2-1.3); BLOOD UREA NITROGEN 32 mg/dL (7-20); CALCIUM 9.6 mg/dL (8.4-10.2); CARBON DIOXIDE 17 mmol/L (22-30); CHLORIDE 107 mmol/L (98-107); GLUCOSE 112 mg/dL (75-110); POTASSIUM 5.9 mmol/L (3.6-5.0); TOTAL PROTEIN 7.7 g/dL (6.3-8.2)
[2020-02-02 13:26] LABS: APPEARANCE,URINE CLOUDY; BILIRUBIN,URINE NEGATIVE (NEGATIVE); COLOR,URINE YELLOW; GLUCOSE, URINE NEGATIVE (NEGATIVE); KETONES,URINE NEGATIVE (NEGATIVE); LEUKOCYTE ESTERASE,URINE NEGATIVE (NEGATIVE); NITRITE,URINE NEGATIVE (NEGATIVE); PROTEIN,URINE 30 mg/dL (NEGATIVE); URIC ACID CRYSTALS,URINE MANY /HPF; URINE SPECIFIC GRAVITY 1.024; UROBILINOGEN,URINE NEGATIVE mg/dL (<2.0)
--- NOTE | 2020-02-02 14:24 | RADIOLOGY REPORT (SQ) ---
EXAM DESCRIPTION: U/S RETROPERITON (RENAL/AORTA) IMAGES COMPLETED DATE/TIME: 02/02/2020 2:15 pm REASON FOR STUDY: right flank pain COMPARISON: None. TECHNIQUE: Dynamic and static grayscale images acquired of the kidneys and bladder and recorded on P ACS. Additional selected color Doppler and spectral images recorded. LIMITATIONS: None. FINDINGS: RIGHT KIDNEY: Normal size, 11.3 cm. Normal echogenicity. No solid or suspicious masses. No hydronephrosis. No calcifications. LEFT KIDNEY: Normal size, 11 cm. Normal echogenicity. No solid or suspicious masses. No hydronephros is. No calcifications. BLADDER: No masses. Ureteral jets are not seen. OTHER FINDINGS: No other significant finding. IMPRESSION: NORMAL RENAL AND BLADDER ULTRASOUND. TECHNICAL DOCUMENTATION: JOB ID: [id number] 2010 [employer]- All Rights Reserved Reading location - IP/workstation name: [email or web address]
[2020-02-02] MEDS ORDERED: NORMAL SALINE 1000 ML 1,000 ML IV ONE ×2 (15:53→16:38)
[2020-02-02] MEDS ORDERED: SODIUM POLYSTYRENE SULFONATE 15 GM/60 ML PO ONE (16:32)
--- NOTE | 2020-02-02 17:49 | RADIOLOGY REPORT (SQ) ---
EXAM DESCRIPTION: CT ABD/PELVIS NO ORAL OR IV IMAGES COMPLETED DATE/TIME: 02/02/2020 3:52 pm REASON FOR STUDY: Right lower quadrant pain. Requisition states left Flank pain. History of renal stones. COMPARISON: 07/31/2019. TECHNIQUE: CT scan of the abdomen and pelvis performed without intravenous or oral contrast. Images reviewed with lung, soft tissue, and bone windows. Reconstructed coronal and sagittal MPR images revi ewed. All images stored on PACS. All CT scanners at this facility use dose modulation, iterative reconstruction, and/or weight based d osing when appropriate to reduce radiation dose to as low as reasonably achievable (ALARA). [facility]: Dose Right [facility]: CareDose [facility]: Dose Right [facility]: Teradose 4D [facility]: Smart [employer] RADIATION DOSE: CT Rad equipment meets quality standard of care and radiation dose reduction techniq ues were employed. CTDIvol: 19.1 mGy. DLP: 1128 mGy-cm.mGy. LIMITATIONS: None. FINDINGS: LOWER CHEST: No significant findings. No nodules or infiltrates. NON-CONTRASTED LIVER, SPLEEN, ADRENALS: Evaluation limited by lack of IV contrast. No identified sign ificant masses. PANCREAS: No masses. No peripancreatic inflammatory changes. GALLBLADDER: No identified stones by CT criteria. No inflammatory changes to suggest cholecystitis. RIGHT KIDNEY AND URETER: There is mild right hydronephrosis and hydroureter. No solid or cystic johnathan l mass. A 2 mm calculus is seen at the distal right ureter ureteral vesicle junction. No perineph irais fluid. LEFT KIDNEY AND URETER: No suspicious masses. Assessment limited by lack of IV contrast. 4 mm nonob structing left inferior pole renal calculus. No obstructing renal or ureteral calculus. No hydrone phrosis or hydroureter. AORTA AND RETROPERITONEUM: No aneurysm. No retroperitoneal masses or adenopathy. BOWEL AND PERITONEAL CAVITY: No obvious masses or inflammatory changes. No free fluid. APPENDIX: Normal. PELVIS, BLADDER, AND ABDOMINAL WALL:No abnormal masses. No free fluid. Bladder normal. BONES: No significant findings. OTHER: No other significant finding. IMPRESSION: 1. Obstructing 2 mm distal right ureteral calculus at the ureterovesical junction. Mild right hydron ephrosis. 2. Appendix is normal. 3. Nonobstructing left inferior pole calculus. COMMENT: Quality ID # [id number]: Final reports with documentation of one or more dose reduction techniques (e.g., Automated exposure control, adjustment of the mA and/or kV according to patient size, use of iterative reconstruction technique) TECHNICAL DOCUMENTATION: JOB ID: [id number] 2010 [employer]- All Rights Reserved Reading location - IP/workstation name: [email or web address]
--- NOTE | 2020-02-02 19:23 | ER Document Report ---
ED General - General Chief Complaint: Abdominal Pain Stated Complaint: FLANK PAIN Time Seen by Provider: 02/02/20 12:15 Primary Care Provider: MILLER AUGUSTE FNP [Primary Care Provider] - Follow up as needed Mode of Arrival: Ambulatory Information source: Patient TRAVEL OUTSIDE OF THE [place] IN LAST 30 DAYS: No - HPI Notes: Patient presents with left flank pain. He states this pain is been present since last night and has been severe and constant. It is been making him vomit all night. He states he has a history of multiple kidney stones in the past and this felt similar. The pain was constant and severe. It was sharp. Nothing made it better or worse. It did radiate down into his lower abdomen. He states he has a history of sarcoid and a previous history of some glomerulonephritis. - Related Data Allergies/Adverse Reactions: morphine Allergy (Verified 02/02/20 12:11) Home Medications: eliquis. metoprolol. betacar. fluoxitine. trazadone. ambien. anabel Past Medical History - General Information source: Patient - Social History Smoking Status: Never Smoker Chew tobacco use (# tins/day): Yes Frequency of alcohol use: Occasional Drug Abuse: None Family History: CAD, Malignancy - MGF with Colon and Thyroid cancers. - Past Medical History Cardiac Medical History: Reports: Hx DVT - December 2016 and April 2017, Hx Hypertension, Hx Pulmonary Embolism Renal/ Medical History: Reports: Hx Kidney Stones. Denies: Hx Peritoneal Dialysis Past Surgical History: Reports: Hx Cardiac Catheterization - 04/25/2018, Hx Pacemaker, Other - IVC filter placement, Bronchosocopy and trans thoracic needle biopsy. - Immunizations Hx Diphtheria, Pertussis, Tetanus Vaccination: No - Unknown last Tetanus. Review of Systems - Review of Systems Constitutional: denies: Chills, Fever Cardiovascular: denies: Chest pain, Palpitations Respiratory: denies: Cough, Short of breath -: Yes All other systems reviewed and negative Physical Exam - Vital signs Vitals: Temp Pulse Resp BP Pulse Ox 98.7 F 69 16 135/79 H 94 02/02/20 11:47 02/02/20 11:47 02/02/20 11:47 02/02/20 11:47 02/02/20 11:47 Interpretation: Normal - General General appearance: Appears well, Alert - HEENT Head: Normocephalic, Atraumatic Eyes: Normal Pupils: PERRL - Respiratory Respiratory status: No respiratory distress Chest status: Nontender Breath sounds: Normal Chest palpation: Normal - Cardiovascular Rhythm: Regular Heart sounds: Normal auscultation Murmur: No - Abdominal Inspection: Normal Distension: No distension Bowel sounds: Normal Tenderness: Nontender Organomegaly: No organomegaly - Back Back: Normal, Nontender - Extremities General upper extremity: Normal inspection, Nontender, Normal color, Normal ROM, Normal temperature General lower extremity: Normal inspection, Nontender, Normal color, Normal ROM, Normal temperature, Normal weight bearing. No: Paulo's sign - Neurological Neuro grossly intact: Yes Cognition: Normal Orientation: AAOx4 [place] Coma Scale Eye Opening: Spontaneous Getrrudis Coma Scale Verbal: Oriented Gertrudis Coma Scale Motor: Obeys Commands Gertrudis Coma Scale Total: 15 Speech: Normal Motor strength normal: LUE, RUE, LLE, RLE Sensory: Normal - Psychological Associated symptoms: Normal affect, Normal mood - Skin Skin Temperature: Warm Skin Moisture: Dry Skin Color: Normal Course - Vital Signs Vital signs: Temp Pulse Resp BP Pulse Ox 98.7 F 69 16 135/79 H 94 02/02/20 11:47 02/02/20 11:47 02/02/20 11:47 02/02/20 11:47 02/02/20 11:47 - Laboratory Result Diagrams: 02/02/20 12:35 02/02/20 12:35 Laboratory results interpreted by me: 02/02/20 02/02/20 02/02/20 12:35 12:35 12:35 RDW 14.3 H Plt Count 131 L Lymph % (Auto) 10.8 L Seg Neutrophils % 83.0 H Sodium 136.7 L Potassium 5.9 H Carbon Dioxide 17 L BUN 32 H Creatinine 2.47 H Est GFR ( Amer) 38 L Est GFR (MDRD) Non-Af 32 L Glucose 112 H ALT 53 H Urine Protein 30 H - Diagnostic Test Radiology reviewed: Image reviewed, Reports reviewed Discharge - Discharge Clinical Impression: Renal insufficiency, Sarcoid, Dehydration Urolithiasis Qualifiers: Urinary calculus location: ureter Qualified Code(s): N20.1 - Calculus of ureter Condition: Stable Disposition: OTHER Referrals: MILLER AUGUSTE FNP [Primary Care Provider] - Follow up as needed
[2020-02-02 19:59] LABS: ANION GAP 7 (5-19); BLOOD UREA NITROGEN 30 mg/dL (7-20); CALCIUM 8.6 mg/dL (8.4-10.2); CARBON DIOXIDE 23 mmol/L (22-30); CHLORIDE 110 mmol/L (98-107); GLUCOSE 81 mg/dL (75-110); POTASSIUM 5.1 mmol/L (3.6-5.0)
[2020-02-02] MEDS ORDERED: TAMSULOSIN HCL 0.4 MG CAP.SR.24H PO ONE (20:20)
[2020-02-02 21:03] VITALS: BP 106/58
--- NOTE | 2020-02-03 00:49 | EKG REPORT ---
SEVERITY:- ABNORMAL ECG - ATRIAL-PACED RHYTHM Consider sinus rhythm with pacing artefacts : Confirmed by: Zhao Almaraz 03-Feb-2020 00:48:26
== END 2020-02-02 21:04 | disposition left against medical advice (07) ==
LOC: ER 11:41
DX: N13.2 Hydronephrosis with renal and ureteral calculous obstruction (principal); N28.9 Disorder of kidney and ureter, unspecified; D86.9 Sarcoidosis, unspecified; E86.0 Dehydration; R10.9 Unspecified abdominal pain; I10 Essential (primary) hypertension; Z79.899 Other long term (current) drug therapy; Z79.01 Long term (current) use of anticoagulants; Z86.718 Personal history of other venous thrombosis and embolism; Z86.711 Personal history of pulmonary embolism; Z95.0 Presence of cardiac pacemaker; Z88.6 Allergy status to analgesic agent; Z88.5 Allergy status to narcotic agent
CPT/HCPCS: 93005; 99285; 96360; 96361; 36415; 83690; 85025; 80053; 81001; 76770; 74176; 93010; J7030